=== PATIENT | female | born 1965 | race Caucasian/White ===

== ENCOUNTER 2020-07-03 09:25 | Outpatient (REF) | payer OTHER, SELFPAY ==
[2020-07-03 11:27] LABS: Hematocrit 42.6 % (37-47); Hemoglobin 13.8 g/dl (12.0-16.0); Mean Corpuscular HGB Conc 32.4 g/dl (31.0-35.0); Mean Corpuscular Hemoglobin 28.8 pg (27.0-33.0); Mean Corpuscular Volume 88.8 fL (80-98); Mean Platelet Volume 10.6 fL (9.4-12.3); Platelet Count 264 X10*3/uL (160-400); Red Cell Distribution Width 12.3 % (11.0-16.0); White Blood Count 6.2 X10*3/uL (4.8-10.8)
[2020-07-03 11:35] LABS: Glucose Urine UA NEG (NEG); Leukocyte Esterase Urine 1+ (NEG); Nitrite Urine NEG (NEG); Urine Blood 1+ (NEG); Urine Ketones NEG (NEG); Urine Protein NEG (NEG-TRACE)
[2020-07-03 11:46] LABS: Appearance Urine HAZY; Color Urine YELLOW
[2020-07-03 11:57] LABS: Alanine Aminotransferase 26 U/L (0-31); Albumin Level 4.1 g/dL (3.5-5.0); Alkaline Phosphatase 101 U/L (39-117); Anion Gap 13 (12-20); Aspartate Amino Transferase 25 U/L (5-31); Bilirubin Total 0.5 mg/dL (0.0-1.0); Blood Urea Nitrogen 12 mg/dL (9-16); Carbon Dioxide 29 mmol/L (22-29); Chloride 106 mmol/L (96-108); Cholesterol 269 mg/dL; Estimated Glomerular Filt Rate > 60; Glucose Fasting 85 mg/dL (60-99); HDL Cholesterol 62 mg/dL; Iron 122 mcg/dL (30-160); LDL Cholesterol Calculated 192 mg/dl; Percent Iron Saturation 36 % (15-50); Sodium 144 mmol/L (135-145); Total Iron Binding Capacity 337 mcg/dL (228-428); Triglycerides 75 mg/dL; Unsaturated Iron Binding 215 ug/dL
[2020-07-03 12:07] LABS: Amorphous Sediment Urine 2+ /LPF; Squamous Epithelial Cell Urine 1+ /LPF
[2020-07-03 12:21] LABS: TSH reflex Free T4 1.92 uIU/mL (0.32-4.0); Vitamin D 25-OH Total 26.4 ng/mL (>30)
[2020-07-03 12:28] LABS: Folate 16.5 ng/mL (> or = 4.0); Vitamin B12 339 pg/mL (200-900)
== END 2020-07-03 09:26 | disposition home or self-care (01) ==
LOC: HO.HMGCLDS 09:25
PROVIDERS: PCP Internal Medicine; Visit Provider Internal Medicine
DX: Z00.00 Encounter for general adult medical examination without abnormal findings (principal)
CPT/HCPCS: 36415; 80053; 80061; 81001; 82306; 82607; 82746; 83540; 84443; 85027

== ENCOUNTER 2020-07-04 14:19 | Outpatient (REF) | payer OTHER, SELFPAY | END 2020-07-04 14:20 | disposition home or self-care (01) | LOC: HO.LNP 14:19 | PROVIDERS: Visit Provider Internal Medicine | DX: R30.0 Dysuria (principal); M79.645 Pain in left finger(s); B35.1 Tinea unguium | CPT/HCPCS: 87086 ==

== ENCOUNTER 2020-08-10 16:40 | Outpatient (REF) | payer OTHER, SELFPAY ==
[2020-08-10 18:03] LABS: Glucose Urine UA NEG (NEG); Leukocyte Esterase Urine 2+ (NEG); Nitrite Urine NEG (NEG); PH 5.5 (5.0-8.0); Specific Gravity - Urine 1.025 (1.005-1.025); Urine Blood 2+ (NEG); Urine Ketones NEG (NEG); Urine Protein NEG (NEG-TRACE)
[2020-08-10 18:07] LABS: Appearance Urine CLEAR; Color Urine YELLOW
[2020-08-10 18:08] LABS: D Dimer < 200 NG/ML
[2020-08-10 18:15] LABS: Bacteria Urine 1+ /LPF
[2020-08-10 18:30] LABS: Erythrocyte Sedimentation Rate 14 MM/HR (0-20)
[2020-08-10 18:46] LABS: C Reactive Protein 0.14 mg/dL (< or = 0.50); Cholesterol 225 mg/dL; HDL Cholesterol 53 mg/dL; LDL Cholesterol Calculated 144 mg/dl; Triglycerides 144 mg/dL
[2020-08-10 18:54] LABS: Rheumatoid Factor 76.6 IU/mL (<15.0)
[2020-08-15 10:37] LABS: Anti Nuclear Antibody Screen POSITIVE (NEGATIVE); Anti Nuclear Antibody Titer 1:40 titer
== END 2020-08-10 16:41 | disposition home or self-care (01) ==
LOC: HO.LAB 16:40
PROVIDERS: PCP Internal Medicine; Visit Provider Internal Medicine
DX: M25.50 Pain in unspecified joint (principal); M79.606 Pain in leg, unspecified; E78.5 Hyperlipidemia, unspecified
CPT/HCPCS: 36415; 80061; 81001; 85379; 85652; 86038; 86039; 86140; 86431

== ENCOUNTER 2020-08-28 12:35 | Outpatient (REF) | payer OTHER, SELFPAY ==
--- NOTE | ~2020-08-28 | XR_ITS ---
EXAMINATION: RIGHT AND LEFT HANDS CLINICAL INFORMATION: Pain COMPARISON: None TECHNIQUE: 3 views of each hand FINDINGS: 3 views of the left hand demonstrate osteopenia. There appears to be a healing nondisplaced fracture involving the base of the first proximal phalanx. No significant soft tissue swelling is present. No radiopaque foreign body. 3 views of the right hand do not demonstrate any evidence of acute fracture or dislocation. No significant soft tissue swelling is appreciated. There is mild spurring about the first carpal metacarpal joint. XR/XR hand LT min 3V IMPRESSION: Healing fracture base of the first proximal phalanx of the left hand. No significant right hand abnormality appreciated. Osteopenia..
--- NOTE | ~2020-08-28 | XR_ITS ---
EXAMINATION: RIGHT AND LEFT HANDS CLINICAL INFORMATION: Pain COMPARISON: None TECHNIQUE: 3 views of each hand FINDINGS: 3 views of the left hand demonstrate osteopenia. There appears to be a healing nondisplaced fracture involving the base of the first proximal phalanx. No significant soft tissue swelling is present. No radiopaque foreign body. 3 views of the right hand do not demonstrate any evidence of acute fracture or dislocation. No significant soft tissue swelling is appreciated. There is mild spurring about the first carpal metacarpal joint. XR/XR hand RT min 3V IMPRESSION: Healing fracture base of the first proximal phalanx of the left hand. No significant right hand abnormality appreciated. Osteopenia..
== END 2020-08-28 12:36 | disposition home or self-care (01) ==
LOC: HO.HOSX 12:35
PROVIDERS: PCP Internal Medicine; Visit Provider Orthopaedic Surgery
DX: M79.641 Pain in right hand (principal); M79.642 Pain in left hand
CPT/HCPCS: 73130; 99202

== ENCOUNTER 2020-10-24 12:30 | Outpatient (REF) | payer OTHER, SELFPAY ==
[2020-10-24 13:45] LABS: MANUAL DIFF FLAG NO
[2020-10-24 13:48] LABS: Basophils Percent Auto 0.5 % (0-2); Eosinophils Absolute Auto 0.1 X10*3/uL (0.0-0.4); Eosinophils Percent Auto 1.3 % (0-4); Hematocrit 40.7 % (37-47); Hemoglobin 13.6 g/dl (12.0-16.0); Imm Gran Abs Auto 0.02 X10*3/uL (0.00-0.03); Imm Gran Pct Auto 0.2 % (0.0-0.4); Lymphocytes Percent Auto 24.5 % (20-40); Mean Corpuscular HGB Conc 33.4 g/dl (31.0-35.0); Mean Corpuscular Hemoglobin 28.5 pg (27.0-33.0); Mean Corpuscular Volume 85.1 fL (80-98); Mean Platelet Volume 11.2 fL (9.4-12.3); Monocytes Absolute Auto 0.5 X10*3/uL (0.1-1.2); Monocytes Percent Auto 5.8 % (2-11); Neutrophils Absolute Auto 5.6 X10*3/uL (2.0-8.3); Neutrophils Percent Auto 67.7 % (45-73); Platelet Count 236 X10*3/uL (160-400); Red Blood Count 4.78 X10*6/uL (4.20-5.50); Red Cell Distribution Width 12.3 % (11.0-16.0); White Blood Count 8.3 X10*3/uL (4.8-10.8)
[2020-10-24 14:34] LABS: Erythrocyte Sedimentation Rate 17 MM/HR (0-20)
[2020-10-24 14:37] LABS: Alanine Aminotransferase 22 U/L (0-31); Albumin Level 4.1 g/dL (3.5-5.0); Alkaline Phosphatase 114 U/L (39-117); Anion Gap 13 (12-20); Aspartate Amino Transferase 23 U/L (5-31); Bilirubin Total 0.5 mg/dL (0.0-1.0); Blood Urea Nitrogen 12 mg/dL (9-16); C Reactive Protein 0.24 mg/dL (< or = 0.50); Calcium 9.5 mg/dL (8.4-10.2); Carbon Dioxide 28 mmol/L (22-29); Chloride 106 mmol/L (96-108); Estimated Glomerular Filt Rate > 60; Glucose Random 97 mg/dL (60-115); Potassium 4.3 mmol/L (3.3-5.1); Sodium 143 mmol/L (135-145); Total Protein 7.2 g/dL (6.5-8.0)
[2020-10-24 15:26] LABS: Glucose Urine UA NEG (NEG); Leukocyte Esterase Urine 3+ (NEG); Nitrite Urine NEG (NEG); Urine Blood TRACE (NEG); Urine Ketones NEG (NEG); Urine Protein NEG (NEG-TRACE)
[2020-10-24 15:27] LABS: Appearance Urine CLEAR; Color Urine YELLOW
[2020-10-24 15:40] LABS: Bacteria Urine 1+ /LPF; RBC Urine 0-2 /HPF (0)
[2020-10-25 04:32] LABS: HBsAGNum1 0.21 S/CO (0.00-0.99); Hepatitis B Surface Antigen Negative (Negative)
[2020-10-25 04:49] LABS: HBS Num1 0.38 mIU/mL (0-7.99); HBc Num1 0.06 S/CO (0.00-0.79); Hepatitis B Core Antibody Nonreactive (Nonreactive); ~HepC Num1 0.07 S/CO (0.00-0.79); ~Hepatitis B Surface Antibody NONREACTIVE (Nonreactive); ~Hepatitis C Antibody Nonreactive (Nonreactive)
[2020-10-25 12:37] LABS: Anti DNA DS Antibody <1 IU/mL; Antibody to SS-A Antigen <1.0 NEG AI (<1.0 NEG); Antibody to SS-B Antigen <1.0 NEG AI (<1.0 NEG); SM/Ribonucleoprotein Ab <1.0 NEG AI (<1.0 NEG); Scleroderma 70 Antibody <1.0 NEG AI (<1.0 NEG); Smith Protein <1.0 NEG AI (<1.0 NEG)
[2020-10-25 13:46] LABS: Beta-2 Microglobulin, Serum 1.87 mg/L (< OR = 2.51)
[2020-10-25 14:37] LABS: PTT (LAC) Screen 26 sec (< OR = 40)
[2020-10-25 15:07] LABS: Complement C3 91 mg/dL (83-193)
[2020-10-26 04:18] LABS: Hepatitis A Antibody IgM 0.18 Index (0-0.79); ~Hepatitis A Antibody IgM Nonreactive (Nonreactive)
[2020-10-26 15:41] LABS: Cardiolipin IgG Ab <14 GPL; Cardiolipin IgM Ab <12 MPL
[2020-10-26 17:21] LABS: Cyclic Citrullinated Peptide >250 UNITS
[2020-10-27 16:16] LABS: TS Negative Control Passed; TS Panel A 0; TS Panel B 0; TS Positive Control Passed; TSpotTB Negative (SeeBelow)
== END 2020-10-24 12:31 | disposition home or self-care (01) ==
LOC: HO.LAB 12:30
PROVIDERS: PCP Internal Medicine; Visit Provider Student in an Organized Health Care Education/Training Program
DX: R76.8 Other specified abnormal immunological findings in serum (principal); M06.9 Rheumatoid arthritis, unspecified; M25.50 Pain in unspecified joint
CPT/HCPCS: 36415; 80053; 81001; 82232; 85025; 85597; 85613; 85652; 85730; 86140; 86147; 86160; 86200; 86225; 86235; 86481; 86704; 86706; 86709; 86803; 87340; 99202

== ENCOUNTER 2020-11-05 09:10 | Outpatient (REF) | payer OTHER, SELFPAY ==
--- NOTE | ~2020-11-05 | XR_ITS ---
EXAMINATION: XR FOOT, RIGHT XR FOOT, LEFT CLINICAL INFORMATION: R76.8 - Other specified abnormal immunological findings COMPARISON: None TECHNIQUE: Each foot is imaged in 3 views. There are a total of 6 views. FINDINGS: Right: There is no fracture or dislocation or destructive process. Bony mineralization within normal. There is small bunion medial head first MTP with borderline hallux valgus. There is no focal joint narrowing or erosive changes. There are posterior and larger plantar calcaneal spurs. The retrocalcaneal recess is preserved. Left: No fracture, dislocation, or destructive process. Bony mineralization within normal. Borderline bunion medial head first MTP and borderline hallux valgus. No focal joint narrowing or erosive change. There are posterior and plantar calcaneal spurs. The retrocalcaneal recess is preserved. XR/XR foot LT 2V IMPRESSION: Right: -Mild first MTP bunion with borderline hallux valgus. -Posterior and plantar calcaneal spurs. -No focal joint narrowing or erosive change. Left: -Borderline first MTP bunion with borderline hallux valgus. -Posterior and plantar calcaneal spurs. -No focal joint narrowing or erosive change.
--- NOTE | ~2020-11-05 | XR_ITS ---
EXAMINATION: XR FOOT, RIGHT XR FOOT, LEFT CLINICAL INFORMATION: R76.8 - Other specified abnormal immunological findings COMPARISON: None TECHNIQUE: Each foot is imaged in 3 views. There are a total of 6 views. FINDINGS: Right: There is no fracture or dislocation or destructive process. Bony mineralization within normal. There is small bunion medial head first MTP with borderline hallux valgus. There is no focal joint narrowing or erosive changes. There are posterior and larger plantar calcaneal spurs. The retrocalcaneal recess is preserved. Left: No fracture, dislocation, or destructive process. Bony mineralization within normal. Borderline bunion medial head first MTP and borderline hallux valgus. No focal joint narrowing or erosive change. There are posterior and plantar calcaneal spurs. The retrocalcaneal recess is preserved. XR/XR foot RT 2V IMPRESSION: Right: -Mild first MTP bunion with borderline hallux valgus. -Posterior and plantar calcaneal spurs. -No focal joint narrowing or erosive change. Left: -Borderline first MTP bunion with borderline hallux valgus. -Posterior and plantar calcaneal spurs. -No focal joint narrowing or erosive change.
== END 2020-11-05 09:11 | disposition home or self-care (01) ==
LOC: HO.XRAY 09:10
PROVIDERS: Absent Provider Student in an Organized Health Care Education/Training Program; PCP Internal Medicine; Referring Provider Internal Medicine; Visit Provider Physician Assistant
DX: Z01.818 Encounter for other preprocedural examination (principal); R76.8 Other specified abnormal immunological findings in serum
CPT/HCPCS: 73620

== ENCOUNTER → 2020-11-21 13:29 | Outpatient (BNVA) | payer OTHER, SELFPAY | PROVIDERS: PCP Internal Medicine; Visit Provider Student in an Organized Health Care Education/Training Program | DX: M06.9 Rheumatoid arthritis, unspecified (principal); R76.8 Other specified abnormal immunological findings in serum; M75.81 Other shoulder lesions, right shoulder | CPT/HCPCS: 99212 ==

== ENCOUNTER 2021-01-04 10:00 | Outpatient (RCR) | payer OTHER, SELFPAY | END 2021-04-05 14:58 | disposition home or self-care (01) | LOC: HO.PTWFD 10:00 | PROVIDERS: PCP Internal Medicine; Visit Provider Student in an Organized Health Care Education/Training Program | DX: M75.81 Other shoulder lesions, right shoulder (principal) | CPT/HCPCS: 97110; 97162; 97530; 97535 ==

== ENCOUNTER 2021-01-10 14:06 | Outpatient (REF) | payer OTHER, SELFPAY ==
--- NOTE | ~2021-01-10 | MM_ITS ---
EXAMINATION: MM DIAGNOSTIC DIGITAL BREAST TOMOSYNTHESIS, BILATERAL US DIAGNOSTIC ULTRASOUND BREAST, RIGHT CLINICAL INFORMATION: Palpable fullness at clinical exam right 9:00 and right 11:00 position. Patient notes no significant changes in the breast from past. Due for yearly. The lifetime risk of breast cancer based on the Tyrer-Cuzick Model is 14%. COMPARISON: Prior mammography: 05/01/2011 TECHNIQUE: Digital breast tomosynthesis is performed in both the craniocaudal and mediolateral oblique views along with computer-aided detection (CAD). Synthesized 2D images are generated from the tomosynthesis. Additional exaggerated right CC view is provided. Ultrasound right breast is targeted to the areas of clinical concern 8:00 through 12:00 position. Grayscale imaging and color Doppler are performed without and with with harmonics. FINDINGS: The breasts are heterogeneously dense, which may obscure small masses (ACR BI-RADS breast composition Category c). Parenchymal pattern is similar to remote prior exam. There is no mass or architectural abnormality. No abnormal calcifications. The axilla and skin contours are unremarkable. No skin thickening or coarsening of the Miguel's ligaments. Ultrasound right breast demonstrates no cystic or solid mass or architectural abnormality. There is no focal duct ectasia. No skin thickening or edema tracking in soft tissue planes. Results are discussed with the patient at time of visit. MM/MM tomosynthesis diagnostic BI IMPRESSION: No mammographic evidence of malignancy. Unremarkable targeted right breast ultrasound. ASSESSMENT: BI-RADS 1: Negative RECOMMENDATION: 1. Patient should be managed based on the clinical impression. If clinically indicated, further evaluation may be considered with surgical consult. Decision to proceed with biopsy should be based on clinical grounds and degree of clinical concern. 2. Otherwise, routine annual screening mammography. This patient's information was entered into a reminder system with a target due date for their next mammogram.
== END 2021-01-10 14:07 | disposition home or self-care (01) ==
LOC: HO.MAMMO 14:06
PROVIDERS: Visit Provider Internal Medicine
DX: N63.11 Unspecified lump in the right breast, upper outer quadrant (principal); N63.15 Unspecified lump in the right breast, overlapping quadrants
CPT/HCPCS: 76642; 77062; 77066

== ENCOUNTER 2021-01-30 11:32 | Outpatient (REF) | payer OTHER, SELFPAY ==
[2021-01-30 13:13] LABS: COVID-19 Test Negative (Negative)
== END 2021-01-30 11:33 | disposition home or self-care (01) ==
LOC: HO.LAB 11:32
PROVIDERS: Visit Provider Internal Medicine
DX: Z20.822 Contact with and (suspected) exposure to COVID-19 (principal)
CPT/HCPCS: 36415; 87635; C9803; U0003; U0005

== ENCOUNTER 2021-02-04 10:08 | Outpatient (REF) | payer OTHER, SELFPAY ==
[2021-02-04 11:51] LABS: MANUAL DIFF FLAG NO
[2021-02-04 11:59] LABS: Basophils Percent Auto 0.5 % (0-2); Eosinophils Absolute Auto 0.1 X10*3/uL (0.0-0.4); Eosinophils Percent Auto 2.1 % (0-4); Hematocrit 37.5 % (37-47); Hemoglobin 12.4 g/dl (12.0-16.0); Imm Gran Abs Auto 0.01 X10*3/uL (0.00-0.03); Imm Gran Pct Auto 0.2 % (0.0-0.4); Lymphocytes Absolute Auto 1.8 X10*3/uL (1.2-4.9); Lymphocytes Percent Auto 31.3 % (20-40); Mean Corpuscular HGB Conc 33.1 g/dl (31.0-35.0); Mean Corpuscular Volume 87.6 fL (80-98); Mean Platelet Volume 10.6 fL (9.4-12.3); Monocytes Absolute Auto 0.3 X10*3/uL (0.1-1.2); Monocytes Percent Auto 5.2 % (2-11); Neutrophils Absolute Auto 3.5 X10*3/uL (2.0-8.3); Neutrophils Percent Auto 60.7 % (45-73); Platelet Count 252 X10*3/uL (160-400); Red Blood Count 4.28 X10*6/uL (4.20-5.50); Red Cell Distribution Width 13.1 % (11.0-16.0); White Blood Count 5.8 X10*3/uL (4.8-10.8)
[2021-02-04 12:19] LABS: Appearance Urine CLEAR; Color Urine YELLOW; Glucose Urine UA NEG (NEG); Leukocyte Esterase Urine NEG (NEG); Nitrite Urine NEG (NEG); Urine Blood TRACE (NEG); Urine Ketones NEG (NEG); Urine Protein NEG (NEG-TRACE)
[2021-02-04 12:21] LABS: Alanine Aminotransferase 18 U/L (0-31); Alkaline Phosphatase 99 U/L (39-117); Anion Gap 10 (12-20); Aspartate Amino Transferase 21 U/L (5-31); Bilirubin Total 0.6 mg/dL (0.0-1.0); Blood Urea Nitrogen 9 mg/dL (9-16); C Reactive Protein 0.13 mg/dL (< or = 0.50); Calcium 9.5 mg/dL (8.4-10.2); Carbon Dioxide 28 mmol/L (22-29); Chloride 108 mmol/L (96-108); Cholesterol 212 mg/dL; Estimated Glomerular Filt Rate > 60; Glucose Random 89 mg/dL (60-115); HDL Cholesterol 51 mg/dL; LDL Cholesterol Calculated 147 mg/dl; Potassium 4.1 mmol/L (3.3-5.1); Sodium 142 mmol/L (135-145); Total Protein 6.6 g/dL (6.5-8.0); Triglycerides 71 mg/dL
[2021-02-04 12:32] LABS: Squamous Epithelial Cell Urine TRACE /LPF; WBC Urine 0-2 /HPF (0-4)
[2021-02-04 12:34] LABS: Vitamin D 25-OH Total 30.1 ng/mL (>30)
[2021-02-04 12:47] LABS: Folate 17.1 ng/mL (> or = 4.0); Vitamin B12 350 pg/mL (200-900)
[2021-02-04 12:52] LABS: Erythrocyte Sedimentation Rate 17 MM/HR (0-20)
== END 2021-02-04 10:09 | disposition home or self-care (01) ==
LOC: HO.LAB 10:08
PROVIDERS: Student in an Organized Health Care Education/Training Program; PCP Internal Medicine; Visit Provider Nurse Practitioner Family
DX: Z00.00 Encounter for general adult medical examination without abnormal findings (principal); M06.9 Rheumatoid arthritis, unspecified; R76.8 Other specified abnormal immunological findings in serum; E78.5 Hyperlipidemia, unspecified
CPT/HCPCS: 36415; 80053; 80061; 81001; 82306; 82607; 82746; 85025; 85652; 86140; 99212

== ENCOUNTER 2021-02-05 11:23 | Day surgery (SDC) | payer OTHER, SELFPAY ==
[2020-12-05 11:56] VITALS: BMI 20.5
--- NOTE | 2020-12-10 08:57 | HO.ANESPROP2 ---
HPI - Anesthesia Eval Consult details Narrative: 55yo F for Colonoscopy PMFSH Active Problems Active Problems: All Active Problems (Updated 11/21/20 @ 13:46 by Hemal Lee MD) Right rotator cuff tendinitis (Acute) Encounter for screening colonoscopy (Acute) EVERARDO positive (Acute) Mammogram declined (Acute) Rheumatoid arthritis (Acute) Joint pain in both hands (Acute) Elevated rheumatoid factor (Acute) Leg pain (Acute) Arthralgia (Acute) Hyperlipemia (Acute) Dysuria (Acute) Onychomycosis (Acute) Pain of left thumb (Acute) Anxiety (Acute) Annual physical exam (Acute) Past Medical History Medical History (Updated 12/10/20 @ 08:59 by Mar Reilly) Annual physical exam Anxiety Arthralgia Dysuria Elevated rheumatoid factor Factor V deficiency, congenital Hyperlipemia Leg pain Mammogram declined Onychomycosis Pain of left thumb Rheumatoid arthritis Family History Family History Father Kidney disease Heart disease Mother Heart disease CVD (cardiovascular disease) Paternal Aunt Breast cancer Surgical History Surgical History History of section History of unilateral fallopian tube excision History of uterine fibroid Social History Social History Alcohol intake: never Patient Tobacco Use Status: Never used Tobacco e-Cigarette/Vaping Use: Never Used Current occupational status: employed 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 Meds Allergies Allergy/AdvReac Type Severity Reaction Status Date / Time hazelnut Allergy Intermediate tongue Verified 12/05/20 11:54 swelling cat dander Allergy Mild sneezing Verified 12/05/20 11:54 Home Medications Medication Instructions Recorded Confirmed Last Taken Type ashwagandha root extract 300 mg mg PO 11/05/20 11/05/20 Unknown History capsule cholecalciferol (vitamin D3) 10 10 mcg PO DAILY 11/05/20 11/05/20 Unknown History mcg (400 unit) capsule feverfew 250 mg capsule mg PO 11/05/20 11/05/20 Unknown History wellington (Zingiber officinalis) 250 250 mg PO DAILY 11/05/20 11/05/20 Unknown History mg capsule nutritional supplement-fiber oral ea PO PRN 11/05/20 11/05/20 Unknown History liquid omega-3 417 mg-dha 120 mg-epa-276 cap PO 11/05/20 11/05/20 Unknown History mg-fish oil 600 mg-tumeric capsule resveratrol-quercetin 100 mg-100 tab PO 11/05/20 11/05/20 Unknown History mg tablet Exam Exam Date and Time: December 10, 2020 0857 Height,Weight and Vital Signs: Height 5 ft 7 in Weight 59.591 kg Pertinent Lab Results Pertinent Lab Results: Laboratory Tests 10/24/20 10/24/20 13:15 13:16 WBC 8.3 Hgb 13.6 Hct 40.7 Plt Count 236 Sodium 143 Potassium 4.3 Chloride 106 Carbon Dioxide 28 BUN 12 Creatinine 0.76 Assessment and Plan Assessment Anesthesia Assessment: Chart Reviewed
[2021-02-01 12:37] VITALS: BMI 20.3
--- NOTE | 2021-02-04 09:27 | P.CONAN_ITS ---
Documented by User: Mar Reilly NP 02/04/21 09:28 HPI - Anesthesia Eval Consult details Narrative: 55yo F for Colonoscopy PMFSH Active Problems Active Problems: All Active Problems (Updated 12/20/20 @ 14:13 by Lauar Cortez MD) Joint pain in both hands (Acute) EVERARDO positive (Acute) Encounter for screening colonoscopy (Acute) Right rotator cuff tendinitis (Acute) Vitamin D deficiency (Acute) Breast lump in female (Acute) Mammogram declined (Acute) Rheumatoid arthritis (Acute) Elevated rheumatoid factor (Acute) Leg pain (Acute) Arthralgia (Acute) Hyperlipemia (Acute) Dysuria (Acute) Onychomycosis (Acute) Pain of left thumb (Acute) Anxiety (Acute) Annual physical exam (Acute) Past Medical History Medical History Annual physical exam Anxiety Arthralgia Breast lump in female Dysuria Elevated rheumatoid factor Factor V deficiency, congenital Hyperlipemia Leg pain Mammogram declined Onychomycosis Pain of left thumb Rheumatoid arthritis Takes dietary supplements Vitamin D deficiency Family History Family History Father Kidney disease Heart disease Mother Heart disease CVD (cardiovascular disease) Paternal Aunt Breast cancer Surgical History Surgical History History of section History of unilateral fallopian tube excision History of uterine fibroid Social History Social History Patient Tobacco Use Status: Never used Tobacco e-Cigarette/Vaping Use: Never Used Use of substances other than those prescribed or required for medical reasons: No Are you DNR?: No Advance Directives: No Advance Directives Information Provided: No Advance Directives on File: No Patient : No FDLMP: 2017 Current occupational status: employed 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 Meds Allergies Allergy/AdvReac Type Severity Reaction Status Date / Time hazelnut Allergy Intermediate tongue Verified 02/04/21 10:49 swelling cat dander Allergy Mild sneezing Verified 02/04/21 10:49 Home Medications Medication Instructions Recorded Confirmed Last Taken Type cholecalciferol (vitamin D3) 10 10 mcg PO DAILY 11/05/20 12/20/20 Unknown History mcg (400 unit) capsule feverfew 250 mg capsule mg PO 11/05/20 12/20/20 Unknown History wellington (Zingiber officinalis) 250 250 mg PO DAILY 11/05/20 12/20/20 Unknown History mg capsule nutritional supplement-fiber oral ea PO PRN 11/05/20 12/20/20 Unknown History liquid omega-3 417 mg-dha 120 mg-epa-276 cap PO 11/05/20 12/20/20 Unknown History mg-fish oil 600 mg-tumeric capsule Exam Exam Date and Time: February 04, 2021 0927 Height,Weight and Vital Signs: Height 5 ft 7 in Weight 58.967 kg Pertinent Lab Results Pertinent Lab Results: Laboratory Tests 10/24/20 10/24/20 13:15 13:16 WBC 8.3 Hgb 13.6 Hct 40.7 Plt Count 236 Sodium 143 Potassium 4.3 Chloride 106 Carbon Dioxide 28 BUN 12 Creatinine 0.76 Assessment and Plan Assessment Anesthesia Assessment: Chart Reviewed Documented by User: Keiko Flowers MD 02/05/21 12:55 PMFSH Past Medical History Medical History Annual physical exam Anxiety Arthralgia Breast lump in female Dysuria Elevated rheumatoid factor Factor V deficiency, congenital Hyperlipemia Leg pain Mammogram declined Onychomycosis Pain of left thumb Rheumatoid arthritis Takes dietary supplements Vitamin D deficiency Family History Family History Father Kidney disease Heart disease Mother Heart disease CVD (cardiovascular disease) Paternal Aunt Breast cancer Surgical History Surgical History History of section History of unilateral fallopian tube excision History of uterine fibroid History of Problems with Anesthesia: No Social History Social History Patient Tobacco Use Status: Never used Tobacco e-Cigarette/Vaping Use: Never Used Use of substances other than those prescribed or required for medical reasons: No Are you DNR?: No Advance Directives: No Advance Directives Information Provided: No Advance Directives on File: No Patient : No FDLMP: 2017 Current occupational status: employed 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 Meds Allergies Allergy/AdvReac Type Severity Reaction Status Date / Time hazelnut Allergy Intermediate tongue Verified 02/04/21 10:49 swelling cat dander Allergy Mild sneezing Verified 02/04/21 10:49 Home Medications Medication Instructions Recorded Confirmed Last Taken Type cholecalciferol (vitamin D3) 10 10 mcg PO DAILY 11/05/20 12/20/20 Unknown History mcg (400 unit) capsule feverfew 250 mg capsule mg PO 11/05/20 12/20/20 Unknown History wellington (Zingiber officinalis) 250 250 mg PO DAILY 11/05/20 12/20/20 Unknown History mg capsule nutritional supplement-fiber oral ea PO PRN 11/05/20 12/20/20 Unknown History liquid omega-3 417 mg-dha 120 mg-epa-276 cap PO 11/05/20 12/20/20 Unknown History mg-fish oil 600 mg-tumeric capsule Exam Airway Mallampati Class: II TM Dist: >3cm Neck ROM: Full Heart: RRR Lungs: CTA Assessment and Plan Final Anesthetic Review History of Problems with Anesthesia: No NPO: Yes ASA Class: II Final Preanesthetic Review: Meds/Allgs Chart Reviewed, Consent Obtained/Reviewed and Anes Risks/Benef Reviewed Patient Risk: Low Procedure Risk: Low Anesthetic Plan Anesthetic Plan: MAC: Disposition: Standard PACU
[2021-02-05 11:55] VITALS: BP 124/59; PULSE 60; RESP 16; TEMP 36.4; O2SAT 100
[2021-02-05] MEDS: Lactated Ringers 1,000 ML 100 ML IVCONT (12:27)
--- NOTE | 2021-02-05 12:48 | MHC.SHP ---
Pre-Procedural Eval Section A Date of Service: 02/05/21 The patient is an INPATIENT: No The History & Physical has been completed within 30 days and I have reviewed it.: No Section B Chief Complaint: Screening Details of Present Illness: Colon cancer screening Relevant Family History (Specify if Yes): No Relevant Social History: None Present Medications: see Short Stay Collaborative assessment Medical History: Significant History (Anxiety Arthralgia Dysuria Elevated rheumatoid factor Factor V deficiency, congenital Hyperlipemia Leg pain Mammogram declined Onychomycosis Pain of left thumb Rheumatoid arthritis) History of Previous Operations: Relevant previous surgery/procedure and date(s) (History of section History of unilateral fallopian tube excision History of uterine fibroid) Allergies: Allergies Allergy/AdvReac Type Severity Reaction Status Date / Time hazelnut Allergy Intermediate tongue Verified 02/04/21 10:49 swelling cat dander Allergy Mild sneezing Verified 02/04/21 10:49 Review of Systems Sugical H&P ROS: Negative: Constitution, Cardiovascular, Respiratory and Gastrointestinal Exam Surgical H&P Exam: Normal: Heart, Normal: Lungs, Normal: Extremities and Normal: Abdomen Plan Diagnosis/Plan: Unchanged I have reviewed the history and physical and performed a pertinent physical examination on my patient. No changes have occurred unless specified.
--- NOTE | 2021-02-05 13:00 | P.OP_ITS ---
Operative Note Operative Note Date of Service: 02/05/21 Narrative: Pre-op diagnosis:?Colon cancer screening Post-op diagnosis:?other (Colon polyp, hemorrhoids) Procedure:? COLONOSCOPY TILL CECUM WITH SNARE POLYPECTOMY AND SUBMUCOSAL INJECTION Consent: Indications for the procedure and potential complications of bleeding, perforation, reaction to medications and missed diagnosis were discussed with the patient and informed consent was obtained. Instrument: Olympus PCF H 190 L variable stiffness pediatric colonoscope Monitoring: Vital signs and clinical assessment, intermittent blood pressure monitoring, continuous EKG monitoring, Pulse oximetry and Carbon Dioxide monitoring were done throughout the procedure. Colon withdrawl time was 32 minutes. Procedure: The patient was placed in the left lateral decubitis position and pre-procedure medications were administered. After a digital rectal examination of the ano-rectum, the video colonoscope was inserted into the rectum and advanced through the colon to the cecum. The colonoscope was slowly withdrawn in a retrograde panoramic fashion and the colon mucosa was carefully examined including a retroflexed view of the rectum. Findings and interventions are described below. Procedure Difficulty: Without difficulty Findings: Terminal Ileum: Not evaluated Cecum:? Normal Ascending Colon:? A 2.5 x 1 cms flat polyp in the distal AC at 60 cms.? Polyp was raised with 7 cc of Orise solution (submucosal injection) and removed with a hot snare (stiff snare was used).? Polypectomy site was marked with xavier ink. Transverse Colon:? Normal Descending Colon:? Normal Sigmoid Colon:? Normal Rectum:? Normal Ano-rectum:? Moderate internal hemorrhoids Colon preparation:? Good? Impression and Post Procedure Diagnosis: Colonoscopy Findings: One medium sized polyp removed Moderate hemorrhoids on retroflexed exam. Plan: Await pathology results Patient has an appointment on 02/20/21 in the GI Clinic with? FAISAL Lyons. Repeat Colonoscopy interval based on path results - in 1-2 years if polyps is adenomatous (to check polypectomy site in the AC) and 10 years if polyps are hyperplastic. Above findings were reviewed with the patient and colon polyps and handout was given in the discharge area Surgeon:?Johan Link MD Anesthesia:?MAC (Shelly Campbell CRNA) Was an Iuss Acoustic Analyst used for this Procedure?:?Yes Iuss Acoustic Analyst:?Tiffanie Holder Estimated blood loss (mL):?0 Pathology:?other (A. ascending colon polyp at 60 cm with Orise) Condition:?stable Disposition:?PACU
[2021-02-05 13:53] VITALS: BP 100/55; PULSE 60; RESP 17; O2SAT 100
[2021-02-05 14:08] VITALS: BP 112/64; PULSE 62; RESP 17; TEMP 36.6; O2SAT 99
[2021-02-05 14:22] VITALS: BP 132/76; PULSE 17; TEMP 36.6; O2SAT 99
== END 2021-02-05 14:53 | disposition home or self-care (01) ==
PROVIDERS: PCP Internal Medicine; Visit Provider Internal Medicine Gastroenterology
PROC: 0DJD8ZZ Inspection of Lower Intestinal Tract, Via Natural or Artificial Opening Endoscopic (ICD-10-PCS; CPT 45378; principal; 2021-02-05 12:30)
DX: Z12.11 Encounter for screening for malignant neoplasm of colon (principal); D12.2 Benign neoplasm of ascending colon; K64.8 Other hemorrhoids; E78.5 Hyperlipidemia, unspecified; M05.9 Rheumatoid arthritis with rheumatoid factor, unspecified; D68.4 Acquired coagulation factor deficiency; E55.9 Vitamin D deficiency, unspecified; F41.9 Anxiety disorder, unspecified; Z79.1 Long term (current) use of non-steroidal anti-inflammatories (NSAID)
CPT/HCPCS: 45385; 45381; 88305; J2250

== ENCOUNTER 2021-04-04 10:49 | Outpatient (REF) | payer OTHER, SELFPAY ==
[2021-04-04 11:26] LABS: COVID-19 Test Negative (Negative)
== END 2021-04-04 10:50 | disposition home or self-care (01) ==
LOC: HO.LAB 10:49
PROVIDERS: PCP Internal Medicine; Visit Provider Internal Medicine
DX: Z20.822 Contact with and (suspected) exposure to COVID-19 (principal)
CPT/HCPCS: 36415; 87635; C9803

== ENCOUNTER 2021-05-04 08:56 | Outpatient (REF) | payer OTHER, SELFPAY ==
[2021-05-04 09:13] LABS: MANUAL DIFF FLAG NO
[2021-05-04 10:14] LABS: Basophils Percent Auto 0.3 % (0-2); Eosinophils Absolute Auto 0.1 X10*3/uL (0.0-0.4); Eosinophils Percent Auto 1.8 % (0-4); Hemoglobin 13.5 g/dl (12.0-16.0); Imm Gran Abs Auto 0.01 X10*3/uL (0.00-0.03); Imm Gran Pct Auto 0.1 % (0.0-0.4); Lymphocytes Absolute Auto 1.9 X10*3/uL (1.2-4.9); Lymphocytes Percent Auto 28.4 % (20-40); Mean Corpuscular HGB Conc 32.9 g/dl (31.0-35.0); Mean Corpuscular Hemoglobin 28.8 pg (27.0-33.0); Mean Corpuscular Volume 87.6 fL (80.0-98.0); Mean Platelet Volume 10.8 fL (9.4-12.3); Monocytes Absolute Auto 0.5 X10*3/uL (0.1-1.2); Monocytes Percent Auto 6.8 % (2-11); Neutrophils Absolute Auto 4.3 x10*3/uL (2.0-8.3); Neutrophils Percent Auto 62.6 % (45-73); Platelet Count 263 X10*3/uL (160-400); Red Blood Count 4.68 X10*6/uL (4.20-5.50); Red Cell Distribution Width 12.7 % (11.0-16.0); White Blood Count 6.8 X10*3/uL (4.8-10.8)
[2021-05-04 11:03] LABS: Alanine Aminotransferase 21 U/L (0-31); Alkaline Phosphatase 102 U/L (39-117); Anion Gap 13 (12-20); Aspartate Amino Transferase 22 U/L (5-31); Bilirubin Total 0.5 mg/dL (0.0-1.0); Blood Urea Nitrogen 11 mg/dL (9-16); C Reactive Protein 0.11 mg/dL (< or = 0.50); Calcium 9.4 mg/dL (8.4-10.2); Carbon Dioxide 26 mmol/L (22-29); Chloride 107 mmol/L (96-108); Estimated Glomerular Filt Rate > 60; Glucose Random 80 mg/dL (60-115); Potassium 4.2 mmol/L (3.3-5.1); Sodium 142 mmol/L (135-145); Total Protein 6.9 g/dL (6.5-8.0)
[2021-05-04 11:29] LABS: Erythrocyte Sedimentation Rate 27 MM/HR (0-20)
== END 2021-05-04 08:57 | disposition home or self-care (01) ==
LOC: HO.LAB 08:56
PROVIDERS: PCP Internal Medicine; Visit Provider Nurse Practitioner Family
DX: M06.9 Rheumatoid arthritis, unspecified (principal)
CPT/HCPCS: 36415; 80053; 85025; 85652; 86140

== ENCOUNTER 2021-05-06 10:45 | Outpatient (REF) | payer OTHER, SELFPAY ==
[2021-05-06 12:40] LABS: Appearance Urine CLEAR; Color Urine YELLOW; Glucose Urine UA NEG (NEG); Leukocyte Esterase Urine NEG (NEG); Nitrite Urine NEG (NEG); PH 6.5 (5.0-8.0); Specific Gravity - Urine <= 1.005 (1.005-1.025); UACC Culture Trigger NO; Urine Blood 1+ (NEG); Urine Ketones NEG (NEG); Urine Protein NEG (NEG-TRACE)
[2021-05-06 13:15] LABS: WBC Urine 0 /HPF (0-4)
== END 2021-05-06 10:46 | disposition home or self-care (01) ==
LOC: HO.LAB 10:45
PROVIDERS: PCP Internal Medicine; Visit Provider Nurse Practitioner Family
DX: M06.9 Rheumatoid arthritis, unspecified (principal); Z79.899 Other long term (current) drug therapy
CPT/HCPCS: 81001; 99212

== ENCOUNTER 2021-06-05 08:44 | Outpatient (REF) | payer OTHER, SELFPAY ==
[2021-06-05 09:16] LABS: MANUAL DIFF FLAG NO
[2021-06-05 09:19] LABS: Basophils Percent Auto 0.6 % (0-2); Eosinophils Absolute Auto 0.1 X10*3/uL (0.0-0.4); Eosinophils Percent Auto 1.4 % (0-4); Hematocrit 38.7 % (37.0-47.0); Hemoglobin 13.1 g/dl (12.0-16.0); Imm Gran Abs Auto 0.02 X10*3/uL (0.00-0.03); Imm Gran Pct Auto 0.3 % (0.0-0.4); Lymphocytes Absolute Auto 1.7 X10*3/uL (1.2-4.9); Lymphocytes Percent Auto 24.8 % (20-40); Mean Corpuscular HGB Conc 33.9 g/dl (31.0-35.0); Mean Corpuscular Hemoglobin 28.9 pg (27.0-33.0); Mean Corpuscular Volume 85.2 fL (80.0-98.0); Mean Platelet Volume 10.4 fL (9.4-12.3); Monocytes Absolute Auto 0.4 X10*3/uL (0.1-1.2); Monocytes Percent Auto 6.5 % (2-11); Neutrophils Absolute Auto 4.4 x10*3/uL (2.0-8.3); Neutrophils Percent Auto 66.4 % (45-73); Platelet Count 264 X10*3/uL (160-400); Red Blood Count 4.54 X10*6/uL (4.20-5.50); Red Cell Distribution Width 11.7 % (11.0-16.0); White Blood Count 6.6 X10*3/uL (4.8-10.8)
[2021-06-05 10:01] LABS: Alanine Aminotransferase 14 U/L (0-31); Albumin Level 3.8 g/dL (3.5-5.0); Alkaline Phosphatase 88 U/L (39-117); Anion Gap 9 (12-20); Aspartate Amino Transferase 15 U/L (5-31); Bilirubin Total 0.5 mg/dL (0.0-1.0); Blood Urea Nitrogen 7 mg/dL (9-16); C Reactive Protein 0.23 mg/dL (< or = 0.50); Calcium 9.8 mg/dL (8.4-10.2); Carbon Dioxide 28 mmol/L (22-29); Chloride 105 mmol/L (96-108); Cholesterol 169 mg/dL; Estimated Glomerular Filt Rate > 60; Glucose Random 92 mg/dL (60-115); HDL Cholesterol 36 mg/dL; LDL Cholesterol Calculated 115 mg/dl; Potassium 4.7 mmol/L (3.3-5.1); Sodium 137 mmol/L (135-145); Triglycerides 93 mg/dL
[2021-06-05 10:24] LABS: Erythrocyte Sedimentation Rate 30 MM/HR (0-20)
[2021-06-05 10:46] LABS: Appearance Urine CLEAR; Color Urine YELLOW; Glucose Urine UA NEG (NEG); Leukocyte Esterase Urine NEG (NEG); Nitrite Urine NEG (NEG); PH 6.5 (5.0-8.0); Specific Gravity - Urine <= 1.005 (1.005-1.025); UACC Culture Trigger NO; Urine Blood 1+ (NEG); Urine Ketones NEG (NEG); Urine Protein NEG (NEG-TRACE)
[2021-06-05 11:21] LABS: RBC Urine 0-2 /HPF (0); WBC Urine 0 /HPF (0-4)
== END 2021-06-05 08:45 | disposition home or self-care (01) ==
LOC: HO.LAB 08:44
PROVIDERS: Absent Provider Internal Medicine; PCP Internal Medicine; Visit Provider Nurse Practitioner Family
DX: M06.9 Rheumatoid arthritis, unspecified (principal); E78.5 Hyperlipidemia, unspecified; E55.9 Vitamin D deficiency, unspecified
CPT/HCPCS: 36415; 80053; 80061; 81001; 82306; 85025; 85652; 86140

== ENCOUNTER → 2021-06-06 09:41 | Outpatient (BNVA) | payer OTHER, SELFPAY | PROVIDERS: PCP Internal Medicine; Visit Provider Nurse Practitioner Family | DX: M06.9 Rheumatoid arthritis, unspecified (principal); R31.9 Hematuria, unspecified | CPT/HCPCS: 99212 ==

== ENCOUNTER 2021-07-11 12:26 | Outpatient (REF) | payer OTHER, SELFPAY ==
[2021-07-11 12:56] LABS: COVID-19 Test Negative (Negative); IDNOW Serial# 16C4AD1C
== END 2021-07-11 12:27 | disposition home or self-care (01) ==
LOC: HO.LAB 12:26
PROVIDERS: Visit Provider Internal Medicine
DX: Z20.822 Contact with and (suspected) exposure to COVID-19 (principal)
CPT/HCPCS: 87635; C9803

== ENCOUNTER 2021-08-29 16:25 | Outpatient (REF) | payer OTHER, SELFPAY ==
[2021-08-29 16:38] LABS: MANUAL DIFF FLAG NO
[2021-08-29 17:06] LABS: Basophils Absolute Auto 0.1 X10*3/uL (0.0-0.2); Basophils Percent Auto 0.5 % (0-2); Eosinophils Percent Auto 0.3 % (0-4); Hematocrit 39.5 % (37.0-47.0); Hemoglobin 13.1 g/dl (12.0-16.0); Imm Gran Abs Auto 0.03 X10*3/uL (0.00-0.03); Imm Gran Pct Auto 0.3 % (0.0-0.4); Lymphocytes Absolute Auto 1.3 X10*3/uL (1.2-4.9); Lymphocytes Percent Auto 13.6 % (20-40); Mean Corpuscular HGB Conc 33.2 g/dl (31.0-35.0); Mean Corpuscular Hemoglobin 29.4 pg (27.0-33.0); Mean Corpuscular Volume 88.6 fL (80.0-98.0); Mean Platelet Volume 10.1 fL (9.4-12.3); Monocytes Absolute Auto 0.4 X10*3/uL (0.1-1.2); Monocytes Percent Auto 3.8 % (2-11); Neutrophils Percent Auto 81.5 % (45-73); Platelet Count 274 X10*3/uL (160-400); Red Blood Count 4.46 X10*6/uL (4.20-5.50); Red Cell Distribution Width 12.8 % (11.0-16.0); White Blood Count 9.8 X10*3/uL (4.8-10.8)
[2021-08-29 17:24] LABS: Alanine Aminotransferase 24 U/L (0-31); Alkaline Phosphatase 105 U/L (39-117); Anion Gap 10 (12-20); Aspartate Amino Transferase 21 U/L (5-31); Bilirubin Total 0.3 mg/dL (0.0-1.0); Blood Urea Nitrogen 11 mg/dL (9-16); C Reactive Protein 0.07 mg/dL (< or = 0.50); Calcium 9.6 mg/dL (8.4-10.2); Carbon Dioxide 27 mmol/L (22-29); Chloride 105 mmol/L (96-108); Estimated Glomerular Filt Rate > 60; Glucose Random 99 mg/dL (60-115); Potassium 4.4 mmol/L (3.3-5.1); Sodium 138 mmol/L (135-145); Total Protein 7.1 g/dL (6.5-8.0)
[2021-08-29 17:37] LABS: Erythrocyte Sedimentation Rate 12 MM/HR (0-20)
== END 2021-08-29 16:26 | disposition home or self-care (01) ==
LOC: HO.LAB 16:25
PROVIDERS: PCP Internal Medicine; Visit Provider Nurse Practitioner Family
DX: M06.9 Rheumatoid arthritis, unspecified (principal)
CPT/HCPCS: 36415; 80053; 85025; 85652; 86140

== ENCOUNTER 2021-08-30 08:57 | Outpatient (REF) | payer OTHER, SELFPAY ==
--- NOTE | ~2021-08-30 | XR_ITS ---
EXAMINATION: XR CHEST CLINICAL INFORMATION: Chest pain. COMPARISON: None TECHNIQUE: 2 views of the chest were obtained. FINDINGS: No significant abnormality is noted involving the heart, lungs, mediastinum, bony thorax or soft tissues. XR/XR chest 2V IMPRESSION: No acute cardiopulmonary process.
== END 2021-08-30 08:58 | disposition home or self-care (01) ==
LOC: HO.HMGCX 08:57
PROVIDERS: Absent Provider Internal Medicine; PCP Internal Medicine; Visit Provider Nurse Practitioner Family
DX: R07.9 Chest pain, unspecified (principal); M06.9 Rheumatoid arthritis, unspecified; R31.9 Hematuria, unspecified
CPT/HCPCS: 71046; 99212

== ENCOUNTER 2021-10-08 17:23 | Emergency (ER) | payer OTHER, SELFPAY ==
--- NOTE | ~2021-10-08 | US_ITS ---
EXAMINATION: US VENOUS WITH DOPPLER LOWER EXTREMITY, LEFT CLINICAL INFORMATION: Pain and swelling. COMPARISON: Previous exam February 2019. TECHNIQUE: Ultrasound of the deep veins is performed from the hip to the calf with compression sonography and color and pulse Doppler assessment. Spectral analysis with color-flow imaging is performed. 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 This is new in the interval from 2019 exam. The left common femoral, profunda, remainder of the superficial femoral, popliteal and posterior tibial and peroneal veins in the calf are patent. There is no significant popliteal fossa cyst. 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 This is new in the interval from 2019 exam. Short-term followup exam in several days may be helpful.
[2021-10-08 18:30] VITALS: BP 108/78; PULSE 62; RESP 18; TEMP 36.9; O2SAT 100; BMI 18.8
[2021-10-08 18:51] LABS: COVID-19 Test Positive (Negative)
[2021-10-09 03:17] VITALS: BP 139/73; PULSE 60; RESP 18; TEMP 36.7; O2SAT 100
[2021-10-09 03:31] LABS: D Dimer High Sensitivity < 150 NG/ML
--- NOTE | 2021-10-09 03:50 | ED.GENADULT ---
HPI - General Adult General Chief complaint: Extremity Problem Stated complaint: ?blood clot Time Seen by Provider: 10/09/21 01:25 Source: patient Mode of arrival: ambulatory History of Present Illness HPI narrative: 56-year-old female with history of factor 5 Leiden presents with complaints of sore throat and pain behind her left knee that she is concerned about because there is warmth and swelling and she has had a history of blood clots in the past. She denies any current use of blood clots at this time. She does report recent COVID exposure from her daughter. Related Data Home Medications Medication Instructions Recorded Confirmed cholecalciferol (vitamin D3) 10 10 mcg PO DAILY 11/05/20 09/13/21 mcg (400 unit) capsule Lactobacillus acidophilus 10 10,000 mmu cells PO DAILY 06/11/21 09/13/21 billion cell capsule (Probiotic) biotin 300 mcg tablet 300 mcg PO DAILY 06/11/21 09/13/21 magnesium 100 mg tablet 150 mg PO DAILY 06/11/21 09/13/21 selenium 200 mcg capsule 200 mcg PO DAILY 06/11/21 09/13/21 vitamin B complex 1 cap PO DAILY 06/11/21 09/13/21 Previous Rx's Medication Instructions Recorded hydroxychloroquine 200 mg tablet 200 mg PO DAILY #30 tab 06/06/21 (Plaquenil) prednisone 5 mg tablet 5 mg PO DAILY #90 tab 06/07/21 Allergies Allergy/AdvReac Type Severity Reaction Status Date / Time hazelnut Allergy Intermediate tongue Verified 10/08/21 18:30 swelling cat dander Allergy Mild sneezing Verified 10/08/21 18:30 pineapple Allergy itchy Verified 10/08/21 18:30 throat Beef Containing Products AdvReac bloating Verified 10/08/21 18:30 joshua AdvReac bloating Verified 10/08/21 18:30 zucchini AdvReac bloating Uncoded 09/13/21 11:09 Review of Systems Review of Systems: Pertinent positives and negatives as stated in HPI 10 point review of systems is otherwise negative. [facility] Past Medical History Source: nursing notes reviewed Medical History Adrenal nodule Annual physical exam Anxiety Factor V deficiency, congenital Hx of cataract Hx of deep venous thrombosis Lung nodule seen on imaging study Normal pelvic exam Onychomycosis Rheumatoid arthritis Takes dietary supplements Vitamin D deficiency Surgical History History of section History of unilateral fallopian tube excision History of uterine fibroid Hx of colonoscopy Family History Family History Father Kidney disease Heart disease Mother Heart disease CVD (cardiovascular disease) Paternal Aunt Breast cancer Social History Social History Housing: House Patient Tobacco Use Status: Never used Tobacco e-Cigarette/Vaping Use: Never Used Advance Directives: No Advance Directives Information Provided: No Patient : No Current occupational status: employed and unemployed 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 GENERAL: Well developed, well nourished, in no acute distress. HEAD: Normocephalic/atraumatic EYES: PERRLA, EOMI EARS: Ext canals without abnormality OROPHARYNX: no oral lesions noted, posterior pharynx clear LUNGS: Normal breath sounds. SpO2<100> CARDIOVASCULAR: Regular rate and rhythm without noted murmurs ABDOMEN: Soft, non-tender, non-distended with bowel sounds. MUSCULOSKELETAL: No tenderness, deformities, or effusions noted on gross inspection. EXTREMITIES: No cyanosis, clubbing or edema. SKIN: Inspection of the skin reveals no rashes NEUROLOGIC: Alert and oriented x 4. Strength and sensation to light touch were grossly intact x 4. Course Course Course Narrative: 56-year-old female with history and clinical presentation after review of all investigations of COVID-19 positivity, patient did get a venous duplex which shows: Hypoechoic material against the wall of the superficial femoral vein in the mid thigh questionable for changes from old DVT. This is new in the interval from 2019 exam. Short-term followup exam in several days may be helpful. Due to the ambiguity in the context of the risks associated with anticoagulation a D-dimer was obtained and was negative. All results were discussed with the patient at bedside, she was reassured, and recommended to use [id number] Tylenol/ibuprofen for discomfort and follow-up with her primary care provider for repeat venous ultrasound after she completes her isolation for COVID-19. Medical Decision Making Lab Data Labs: Lab Results 10/08/21 10/09/21 Range/Units 18:39 03:11 D-Dimer High Sensitivty < 150 NG/ML COVID-19 ([facility]) Positive A (Negative) COVID-19 Clin Com See Note Discharge Plan Discharge Clinical Impression: Lab test positive for detection of COVID-19 virus, Posterior left knee pain Patient Disposition: Home, Self-Care Instructions: COVID-19 (Coronavirus Disease 2019) (ED), Knee Pain (ED) Additional Instructions: 1. Please resume all home medications as prescribed. 2. You have been diagnosed with COVID-19 and as per CDC guidelines you should isolate for 5 days from onset of symptoms, and then follow all [place] and Federal guidelines regarding COVID. 3. Follow-up with your primary care provider by calling the office in the morning and discuss repeat testing on your leg after you have isolated for COVID-19. Return to the ER for worsening symptoms. Prescriptions: No Action biotin 300 mcg Tablet 300 mcg PO DAILY 0RF magnesium 100 mg Tablet 150 mg PO DAILY 0RF vitamin B complex [B Complex] Capsule 1 cap PO DAILY 0RF selenium 200 mcg Capsule 200 mcg PO DAILY 0RF Probiotic 10 billion cell Capsule 10,000 mmu cells PO DAILY 0RF cholecalciferol (vitamin D3) 10 mcg (400 unit) capsule 10 mcg PO DAILY 0RF hydroxychloroquine [Plaquenil] 200 mg tablet 200 mg PO DAILY Qty: 30 3RF prednisone 5 mg tablet 5 mg PO DAILY Qty: 90 1RF Referrals: Laura Cortez MD [Primary Care Provider] - Interventions: ED Discharge Assessment Last Done: 10/09/21 03:58
== END 2021-10-09 04:06 | disposition home or self-care (01) ==
PROVIDERS: Emergency Provider Student in an Organized Health Care Education/Training Program; PCP Internal Medicine
DX: U07.1 COVID-19 (principal); R60.0 Localized edema; M25.562 Pain in left knee; Z79.899 Other long term (current) drug therapy
CPT/HCPCS: 36415; 85379; 87635; 93971; 99284

== ENCOUNTER 2021-12-31 13:58 | Outpatient (REF) | payer OTHER, SELFPAY ==
--- NOTE | ~2021-12-31 | US_ITS ---
EXAMINATION: US VENOUS ULTRASOUND WITH DOPPLER LOWER EXTREMITY, LEFT CLINICAL INFORMATION: Follow-up DVT COMPARISON: Previous exams most recent September 2021 TECHNIQUE: Ultrasound of the deep veins is performed from the hip to the calf with compression sonography and color and pulse Doppler assessment. Spectral analysis with color-flow imaging is performed. FINDINGS: There is normal venous compression and respiratory variation and augmented flow. The visualized common femoral vein, superficial femoral vein, profunda femoral vein, popliteal vein, and the trifurcation region shows no evidence of deep venous thrombosis. There is no significant popliteal fossa cyst. US/US venous duplex LE LT IMPRESSION: No DVT demonstrated in the left lower extremity.
== END 2021-12-31 13:59 | disposition home or self-care (01) ==
LOC: HO.US 13:58
PROVIDERS: Visit Provider Internal Medicine
DX: R93.6 Abnormal findings on diagnostic imaging of limbs (principal); I82.402 Acute embolism and thrombosis of unspecified deep veins of left lower extremity
CPT/HCPCS: 93971

== ENCOUNTER → 2022-01-29 15:25 | Outpatient (REF) | payer OTHER, SELFPAY ==
--- NOTE | 2022-01-29 15:34 | ECG_ITS ---
Test Reason : UNSPEC CHEST PAIN Blood Pressure : / mmHG Vent. Rate : 057 BPM Atrial Rate : 057 BPM P-R Int : 164 ms QRS Dur : 092 ms QT Int : 430 ms P-R-T Axes : 056 058 050 degrees QTc Int : 418 ms Sinus bradycardia Otherwise normal ECG No previous ECGs available Referred By: Vernell Ghotra Electronically Signed By:JULIO NAVARRO
[2022-01-29 15:43] LABS: MANUAL DIFF FLAG NO
[2022-01-29 15:53] LABS: Basophils Percent Auto 0.5 % (0-2); Eosinophils Absolute Auto 0.1 X10*3/uL (0.0-0.4); Eosinophils Percent Auto 1.4 % (0-4); Hematocrit 43.2 % (37.0-47.0); Imm Gran Abs Auto 0.01 X10*3/uL (0.00-0.03); Imm Gran Pct Auto 0.1 % (0.0-0.4); Lymphocytes Absolute Auto 2.4 X10*3/uL (1.2-4.9); Lymphocytes Percent Auto 31.2 % (20-40); Mean Corpuscular HGB Conc 32.4 g/dl (31.0-35.0); Mean Corpuscular Hemoglobin 28.9 pg (27.0-33.0); Mean Corpuscular Volume 89.1 fL (80.0-98.0); Monocytes Absolute Auto 0.6 X10*3/uL (0.1-1.2); Monocytes Percent Auto 7.6 % (2-11); Neutrophils Absolute Auto 4.6 x10*3/uL (2.0-8.3); Neutrophils Percent Auto 59.2 % (45-73); Platelet Count 253 X10*3/uL (160-400); Red Blood Count 4.85 X10*6/uL (4.20-5.50); Red Cell Distribution Width 12.3 % (11.0-16.0); White Blood Count 7.7 X10*3/uL (4.8-10.8)
[2022-01-29 16:30] LABS: Erythrocyte Sedimentation Rate 12 MM/HR (0-20)
[2022-01-29 17:16] LABS: Alanine Aminotransferase 23 U/L (0-31); Aspartate Amino Transferase 21 U/L (5-31); C Reactive Protein 0.08 mg/dL (< or = 0.50); Estimated Glomerular Filt Rate > 60
[2022-01-29 18:12] LABS: Appearance Urine Clear; Color Urine Yellow; Glucose Urine UA Negative (Negative); Leukocyte Esterase Urine Large (3+) (Negative); Nitrite Urine Negative (Negative); PH 8.5 (5.0-9.0); Specific Gravity - Urine <= 1.005 (1.005-1.025); Urine Blood Trace (Negative); Urine Ketones Negative (Negative); Urine Protein Negative (Neg-Trace)
[2022-01-29 18:27] LABS: Bacteria Urine None Seen (None Seen); Hyaline Casts Urine 0-2 /LPF (0-2); Squamous Epithelial Cell Urine 0-2 /HPF (0-2); UACC Culture Trigger YES; WBC Urine 0-5 /HPF (0-5)
== END ==
LOC: HO.CARD 15:25
PROVIDERS: Student in an Organized Health Care Education/Training Program; PCP Internal Medicine; Visit Provider Nurse Practitioner Family
DX: R07.9 Chest pain, unspecified (principal); M06.9 Rheumatoid arthritis, unspecified; Z79.899 Other long term (current) drug therapy; M25.50 Pain in unspecified joint
CPT/HCPCS: 36415; 81001; 82565; 84450; 84460; 85025; 85652; 86140; 87086; 93005; 99212

== ENCOUNTER → 2022-07-07 11:06 | Outpatient (BNVA) | payer OTHER, SELFPAY | PROVIDERS: PCP Internal Medicine; Visit Provider Nurse Practitioner Family | DX: M06.9 Rheumatoid arthritis, unspecified (principal) | CPT/HCPCS: 99212 ==

== ENCOUNTER 2022-08-14 09:14 | Outpatient (REF) | payer OTHER, SELFPAY ==
--- NOTE | ~2022-08-14 | MM_ITS ---
EXAMINATION: BONE DENSITOMETRY CLINICAL INDICATION: Long-term (current) use of systemic steroids. COMPARISON: None (current study represents initial baseline exam). TECHNIQUE: Using a [employer] DXA System (software version: 13.1) manufactured by [employer] dual-energy x-ray absorptiometry was performed of the lumbar spine and left hip. The images are of good technical quality. Summary results are attached. FINDINGS: AP SPINE L1-L4: BMD 0.766 g/cm2, Z-score -2.5, T-score -3.5, osteoporosis. LEFT FEMUR, NECK: BMD 0.519 g/cm2, Z-score -2.6, T-score -3.7, osteoporosis. LEFT FEMUR, TOTAL: BMD 0.512 g/cm2, Z-score -3.2, T-score -3.9, osteoporosis. IDENTIFIED RISK FACTORS: Menopause, rheumatoid arthritis, glucocorticoids (chronic), right oophorectomy. HISTORY OF FRACTURE: None listed. MEDICATIONS: Vitamin D. MM/XR DEXA axial skeleton IMPRESSION: 1. DIAGNOSIS: Osteoporosis based on the lowest T-score value of -3.9 in the total femur applying World Health Organization criteria. 2. 10-YEAR FRACTURE RISK PREDICTION, FRAX: According to the guidelines, FRAX calculation should only be performed on patients in the osteopenia bone density category. Therefore, FRAX was not performed on this patient. 3. Treatment Recommendations: NOF guidelines recommend consideration for treatment in postmenopausal women and men age 50 and older presenting with the following: -A hip or vertebral (clinical or morphometric) fracture. -T-score less than or equal to -2.5 at the femoral neck or spine after appropriate evaluation to exclude secondary causes. -Low bone mass at the hip or spine and a 10-year fracture probability by FRAX of greater than or equal to 3% for hip fracture or greater than or equal to 20% for major osteoporotic fracture based on the [place] adapted WHO algorithm. 4. Other Recommendations: All treatment decisions require clinical judgment and consideration of individual patient factors, including patient preferences, comorbidities, previous drug use, risk factors not captured in the FRAX model (e.g. frailty, falls, vitamin D deficiency, increased bone turnover, interval significant decline in bone density) and possible under or overestimation of fracture risk by FRAX. Additional medical evaluation for secondary cause of low bone mineral density may be appropriate. FUTURE SCAN RECOMMENDATION: People with diagnosed cases of osteoporosis or at high risk for fracture should have regular bone mineral density tests. For patients eligible for Medicare, routine testing is allowed once every 2 years. The testing frequency can be increased to one year for patients who have rapidly progressing disease, those who are receiving or discontinuing medical therapy to restore bone mass, or have additional risk factors.
== END 2022-08-14 09:15 | disposition home or self-care (01) ==
LOC: HO.MAMMO 09:14
PROVIDERS: PCP Internal Medicine; Visit Provider Nurse Practitioner Family
DX: Z13.820 Encounter for screening for osteoporosis (principal); Z79.52 Long term (current) use of systemic steroids; Z78.0 Asymptomatic menopausal state
CPT/HCPCS: 77080

== ENCOUNTER 2022-08-19 09:22 | Outpatient (REF) | payer OTHER, SELFPAY ==
[2022-08-19 09:36] LABS: MANUAL DIFF FLAG NO
[2022-08-19 09:59] LABS: Basophils Absolute Auto 0.1 X10*3/uL (0.0-0.2); Basophils Percent Auto 0.7 % (0-2); Eosinophils Absolute Auto 0.1 X10*3/uL (0.0-0.4); Eosinophils Percent Auto 1.6 % (0-4); Hematocrit 44.6 % (37.0-47.0); Hemoglobin 14.5 g/dl (12.0-16.0); Imm Gran Abs Auto 0.02 X10*3/uL (0.00-0.03); Imm Gran Pct Auto 0.3 % (0.0-0.4); Lymphocytes Percent Auto 28.3 % (20-40); Mean Corpuscular HGB Conc 32.5 g/dl (31.0-35.0); Mean Corpuscular Hemoglobin 28.7 pg (27.0-33.0); Mean Corpuscular Volume 88.1 fL (80.0-98.0); Mean Platelet Volume 10.2 fL (9.4-12.3); Monocytes Absolute Auto 0.5 X10*3/uL (0.1-1.2); Monocytes Percent Auto 6.6 % (2-11); Neutrophils Absolute Auto 4.3 x10*3/uL (2.0-8.3); Neutrophils Percent Auto 62.5 % (45-73); Platelet Count 259 X10*3/uL (160-400); Red Blood Count 5.06 X10*6/uL (4.20-5.50); Red Cell Distribution Width 12.6 % (11.0-16.0)
[2022-08-19 10:41] LABS: Alanine Aminotransferase 21 U/L (0-31); Aspartate Amino Transferase 22 U/L (5-31); C Reactive Protein < 0.10 mg/dL (< or = 0.50); Erythrocyte Sedimentation Rate 8 MM/HR (0-20); Estimated Glomerular Filt Rate > 60
[2022-08-19 10:50] LABS: Vitamin D 25-OH Total 35.2 ng/mL (>30)
== END 2022-08-19 09:23 | disposition home or self-care (01) ==
LOC: HO.LAB 09:22
PROVIDERS: PCP Internal Medicine; Visit Provider Nurse Practitioner Family
DX: M81.0 Age-related osteoporosis without current pathological fracture (principal); M06.9 Rheumatoid arthritis, unspecified; Z79.899 Other long term (current) drug therapy
CPT/HCPCS: 36415; 82306; 82565; 84450; 84460; 85025; 85652; 86140

== ENCOUNTER 2022-09-01 08:53 | Outpatient (REF) | payer OTHER, SELFPAY ==
--- NOTE | ~2022-09-01 | MM_ITS ---
EXAMINATION: MM SCREENING DIGITAL BREAST TOMOSYNTHESIS, BILATERAL CLINICAL INFORMATION: Screening. Asymptomatic. The lifetime risk of breast cancer based on the Tyrer-Cuzick Model is 15%. COMPARISON: Mammography: 01/10/2021, 05/01/2011, 01/24/2010; right breast ultrasound 01/10/2021, 01/24/2010 TECHNIQUE: Digital breast tomosynthesis is performed in both the craniocaudal and mediolateral oblique views along with computer-aided detection (CAD). Synthesized 2D images are generated from the tomosynthesis. FINDINGS: The breasts are heterogeneously dense, which may obscure small masses (ACR BI-RADS breast composition Category c). Parenchymal pattern is similar to prior studies. Scattered asymmetries are stable. There is no developing density or architectural abnormality. There are no significant masses, abnormal calcifications, or other abnormalities. The axilla and skin contours are unremarkable. No significant changes from prior exams. MM/MM tomosynthesis screening BI IMPRESSION: No significant changes from prior studies. ASSESSMENT: BI-RADS 2: Benign RECOMMENDATION: Routine annual mammography screening. This patient's information was entered into a reminder system with a target due date for their next mammogram.
== END 2022-09-01 08:54 | disposition home or self-care (01) ==
LOC: HO.MAMMO 08:53
PROVIDERS: PCP Internal Medicine; Visit Provider Internal Medicine
DX: Z12.31 Encounter for screening mammogram for malignant neoplasm of breast (principal)
CPT/HCPCS: 77063; 77067

== ENCOUNTER 2022-09-13 09:23 | Emergency (ER) | payer OTHER, SELFPAY ==
--- NOTE | ~2022-09-13 | XR_ITS ---
EXAMINATION: XR RIBS, RIGHT CLINICAL INFORMATION: Right rib pain and tenderness. COMPARISON: Chest radiographs dated 09/09/2021. TECHNIQUE: 3 views of the right ribs were obtained along with a PA view of the chest. A skin marker overlies the inferior right ribs. FINDINGS: Lungs are clear. No consolidation, pneumothorax, or pleural effusion. The cardiomediastinal silhouette and pulmonary vasculature are normal. Osseous structures are unremarkable. Ribs are intact. No fractures are identified. XR/XR ribs RT min 3V w CXR1V IMPRESSION: Unremarkable examination.
[2022-09-13 09:32] VITALS: BP 154/72; PULSE 59; RESP 17; TEMP 36.6; O2SAT 99; BMI 20.3
--- NOTE | 2022-09-13 09:41 | ED.GENADULT ---
HPI - General Adult General Chief complaint: General Medical Stated complaint: rib pain, inj 09/09 Time Seen by Provider: 09/13/22 09:41 Source: patient Mode of arrival: ambulatory Limitations: no limitations History of Present Illness HPI narrative: Injured ribs while reaching across car [place] 4 days ago. Worse with lying on her side or coughing or laughing. Onset (ago): day(s) Location: chest Severity: mild Quality: sharp Pain Consistency: intermittent Associated symptoms: denies other symptoms Related Data Home Medications Medication Instructions Recorded Confirmed cholecalciferol (vitamin D3) 10 10 mcg PO DAILY 11/05/20 09/13/21 mcg (400 unit) capsule Lactobacillus acidophilus 10 10,000 mmu cells PO DAILY 06/11/21 09/13/21 billion cell capsule (Probiotic) biotin 300 mcg tablet 300 mcg PO DAILY 06/11/21 09/13/21 magnesium 100 mg tablet 150 mg PO DAILY 06/11/21 09/13/21 selenium 200 mcg capsule 200 mcg PO DAILY 06/11/21 09/13/21 vitamin B complex 1 cap PO DAILY 06/11/21 09/13/21 prednisone 2.5 mg tablet 2.5 mg PO DAILY 07/07/22 07/07/22 Previous Rx's Medication Instructions Recorded hydroxychloroquine 200 mg tablet 300 mg PO DAILY #45 tabs 07/08/22 (Plaquenil) lorazepam 0.5 mg tablet 0.5 mg PO DAILY PRN anxiety #4 tabs 07/31/22 bisacodyl 5 mg tablet,delayed 10 mg PO ONCE colonoscopy prep 1 08/07/22 release (Dulcolax (bisacodyl)) day #2 tabs polyethylene glycol 3350 17 238 g PO ONCE 1 day #238 grams 08/07/22 gram/dose oral powder (Miralax) naproxen 500 mg tablet (Naprosyn) 500 mg PO BID #20 tabs 09/13/22 Allergies Allergy/AdvReac Type Severity Reaction Status Date / Time hazelnut Allergy Intermediate tongue Verified 07/07/22 11:29 swelling cat dander Allergy Mild sneezing Verified 07/07/22 11:29 pineapple Allergy itchy Verified 07/07/22 11:29 throat Beef Containing Products AdvReac bloating Verified 07/07/22 11:29 joshua AdvReac bloating Verified 07/07/22 11:29 zucchini AdvReac bloating Uncoded 07/07/22 11:29 Review of Systems Review of Systems: Yes all other systems are reviewed and are negative Respiratory: Comments: right rib tendernessw PMFSH Past Medical History Medical History Adrenal nodule Annual physical exam Anxiety Factor V deficiency, congenital Hx of cataract Hx of deep venous thrombosis Lung nodule seen on imaging study Normal pelvic exam Onychomycosis Rheumatoid arthritis Takes dietary supplements Vitamin D deficiency Surgical History History of section History of unilateral fallopian tube excision History of uterine fibroid Hx of colonoscopy Family History Family History Father Kidney disease Heart disease Mother Heart disease CVD (cardiovascular disease) Paternal Aunt Breast cancer Social History Social History Housing: House Patient Tobacco Use Status: Never used Tobacco e-Cigarette/Vaping Use: Never Used Advance Directives: No Advance Directives Information Provided: No Current occupational status: employed and unemployed 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 Cognitive needs: No Hearing needs: No Vision needs: No Physical Exam ED Vital Signs: Vital Signs - 24 hr 09/13/22 09:32 Temperature 98 F Pulse Rate 59 Respiratory Rate 17 Blood Pressure 154/72 H Pulse Oximetry 99 Oxygen Delivery Method Room Air BMI result Body Mass Index 20.3 Const General: healthy appearing Nutritional Appearance: average body habitus Orientation/consciousness: oriented to person and patient oriented x3 Limitations: no limitations HENMT Head: Yes normal to inspection Ears: external ears normal General nose exam: Normal external nose present Mouth: Normal oral and palatal mucosa present and oropharynx normal Throat: Yes posterior oropharynx normal Eyes General: appearance normal, both eyes and all related structures Neck Neck: Yes normal visual inspection Chest Other: right rib tenderness to palpation Resp Auscultation: clear to auscultation bilaterally Cardio Jugular venous distension: no JVD Rate: regular rate Rhythm: regular rhythm Heart sounds: S1 normal heart sound present and S2 normal heart sound present GI Inspection: Yes normal to inspection Palpation (GI): Soft to palpation, nontender and No hepatosplenomegaly present Auscultation: normal bowel sounds General: Yes no CVA tenderness Back/Spine/Pelvis Back: no CVA tenderness Skin General skin exam: no rashes or lesions noted Neuro General: oriented to person and patient oriented x3 Cranial nerves: Yes CN's II-XII intact bilaterally Motor exam (neuro): 5/5 motor strength present throughout Extrem General: Yes normal to inspection Psych Appearance: grossly normal Course Reevaluation(s) Reevaluation #1: no fracture will treat for rib contusion Time: 10:49 Medical Decision Making Differential Diagnosis Differential Diagnoses: The differential diagnosis associated with the presentation includes (rib fracture, rib contusion, pneumothorax, pulmonary contusion) Independent Interpretation I performed an independent interpretation of an: Plain X-Ray (no rib fracture or pulmonary contusion or pneumothorax) Chronic Conditions Patient?s care impacted by: Other (osteoperosis) Discharge Plan Discharge Clinical Impression: Contusion of rib Patient Disposition: Home, Self-Care Instructions: Rib Contusion (ED) Prescriptions: New naproxen [Naprosyn] 500 mg tablet 500 mg PO BID Qty: 20 0RF No Action hydroxychloroquine [Plaquenil] 200 mg tablet 300 mg PO DAILY Qty: 45 3RF lorazepam 0.5 mg tablet 0.5 mg PO DAILY PRN (Reason: anxiety) Qty: 4 0RF bisacodyl [Dulcolax (bisacodyl)] 5 mg tablet,delayed release (DR/EC) 10 mg PO ONCE 1 Days Qty: 2 0RF Rx Instructions: Take 2 tablets by mouth at 12:00pm the day before your procedure. polyethylene glycol 3350 [Miralax] 17 gram/dose powder 238 g PO ONCE 1 Days Qty: 238 0RF Rx Instructions: Take as directed by mouth the day before your procedure. biotin 300 mcg Tablet 300 mcg PO DAILY magnesium 100 mg Tablet 150 mg PO DAILY vitamin B complex [B Complex] Capsule 1 cap PO DAILY selenium 200 mcg Capsule 200 mcg PO DAILY Probiotic 10 billion cell Capsule 10,000 mmu cells PO DAILY cholecalciferol (vitamin D3) 10 mcg (400 unit) capsule 10 mcg PO DAILY prednisone 2.5 mg tablet 2.5 mg PO DAILY
== END 2022-09-13 11:22 | disposition home or self-care (01) ==
PROVIDERS: Emergency Provider Emergency Medicine; PCP Internal Medicine
DX: S20.219A Contusion of unspecified front wall of thorax, initial encounter (principal); X50.9XXA Other and unspecified overexertion or strenuous movements or postures, initial encounter; Y93.89 Activity, other specified; Y92.810 Car as the place of occurrence of the external cause; Y99.9 Unspecified external cause status
CPT/HCPCS: 71101; 99283

== ENCOUNTER → 2022-10-03 11:37 | Outpatient (BNVA) | payer OTHER, SELFPAY | PROVIDERS: PCP Internal Medicine; Visit Provider Nurse Practitioner Family | DX: M06.9 Rheumatoid arthritis, unspecified (principal); M81.0 Age-related osteoporosis without current pathological fracture | CPT/HCPCS: 99212 ==

== ENCOUNTER 2022-11-03 10:47 | Day surgery (SDC) | payer OTHER, SELFPAY ==
[2022-10-30 15:58] VITALS: BMI 20.7
[2022-11-03 11:43] VITALS: BP 109/57; PULSE 67; RESP 16; TEMP 36.5; O2SAT 100; BMI 22.1
--- NOTE | 2022-11-03 12:00 | HO.ANESPROP2 ---
Documented by User: Mar Reilly NP 10/31/22 12:50 HPI - Anesthesia Eval Consult details Narrative: 57yo F for Colonoscopy Factor V, Hx DVT PMFSH Active Problems Active Problems: All Active Problems (Updated 10/03/22 @ 22:58 by Vernell Ghotra NP) Osteoporosis (Acute) Serrated adenoma of colon (Acute) Leg pain, left (Acute) Rash (Acute) Abnormal ultrasound of lower extremity (Acute) Adrenal nodule (Acute) Lung nodule seen on imaging study (Acute) Hx of colonoscopy (Acute) Normal pelvic exam (Acute) EVERARDO positive (Acute) Encounter for screening colonoscopy (Acute) Right rotator cuff tendinitis (Acute) Vitamin D deficiency (Acute) Rheumatoid arthritis (Acute) Onychomycosis (Acute) Anxiety (Acute) Annual physical exam (Acute) Past Medical History Medical History (Updated 11/03/22 @ 07:22 by Clifton Herrera MD) Adrenal nodule Annual physical exam Anxiety Factor V deficiency, congenital Hx of cataract Hx of deep venous thrombosis Lung nodule seen on imaging study Normal pelvic exam Onychomycosis Rheumatoid arthritis Takes dietary supplements Vitamin D deficiency Family History Family History Father Kidney disease Heart disease Mother Heart disease CVD (cardiovascular disease) Mental health disorder Substance use disorder Paternal Aunt Breast cancer Brother Substance use disorder Surgical History Surgical History History of section History of unilateral fallopian tube excision History of uterine fibroid Hx of colonoscopy History of Problems with Anesthesia: No Social History Social History Housing: House Patient Tobacco Use Status: Never used Tobacco e-Cigarette/Vaping Use: Never Used Use of substances other than those prescribed or required for medical reasons: No Advance Directives: No Advance Directives Information Provided: Yes Current occupational status: employed and unemployed 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 Cognitive needs: No Hearing needs: No Vision needs: No Meds Allergies Allergy/AdvReac Type Severity Reaction Status Date / Time hazelnut Allergy Intermediate tongue Verified 10/03/22 11:55 swelling cat dander Allergy Mild sneezing Verified 10/03/22 11:55 pineapple Allergy itchy Verified 10/03/22 11:55 throat Beef Containing Products AdvReac bloating Verified 10/03/22 11:55 joshua AdvReac bloating Verified 10/03/22 11:55 zucchini AdvReac bloating Uncoded 10/03/22 11:55 Home Medications Medication Instructions Recorded Confirmed Last Taken Type cholecalciferol (vitamin D3) 10 10 mcg PO DAILY 11/05/20 10/03/22 Unknown History mcg (400 unit) capsule Lactobacillus acidophilus 10 10,000 mmu cells PO DAILY 06/11/21 10/03/22 Unknown History billion cell capsule (Probiotic) biotin 300 mcg tablet 300 mcg PO DAILY 06/11/21 10/03/22 Unknown History magnesium 100 mg tablet 150 mg PO DAILY 06/11/21 10/03/22 Unknown History selenium 200 mcg capsule 200 mcg PO DAILY 06/11/21 10/03/22 Unknown History vitamin B complex 1 cap PO DAILY 06/11/21 10/03/22 Unknown History Exam Exam Date and Time: October 31, 2022 1249 Height,Weight and Vital Signs: Height 5 ft 7 in Weight 59.874 kg Narrative Narrative: EKG 01/2022 Vent. Rate : 057 BPM ? ? Atrial Rate : 057 BPM ?? P-R Int : 164 ms? QRS Dur : 092 ms ? ? QT Int : 430 ms ? ? ? P-R-T Axes : 056 058 050 degrees ?? QTc Int : 418 ms ? Sinus bradycardia Otherwise normal ECG No previous ECGs available Assessment and Plan Assessment Anesthesia Assessment: Chart Reviewed Final Anesthetic Review History of Problems with Anesthesia: No Documented by User: Patricia Stephenson DO 11/03/22 12:19 [facility] Past Medical History Medical History (Updated 11/03/22 @ 07:22 by Clifton Herrera MD) Adrenal nodule Annual physical exam Anxiety Factor V deficiency, congenital Hx of cataract Hx of deep venous thrombosis Lung nodule seen on imaging study Normal pelvic exam Onychomycosis Rheumatoid arthritis Takes dietary supplements Vitamin D deficiency Family History Family History Father Kidney disease Heart disease Mother Heart disease CVD (cardiovascular disease) Mental health disorder Substance use disorder Paternal Aunt Breast cancer Brother Substance use disorder Surgical History Surgical History History of section History of unilateral fallopian tube excision History of uterine fibroid Hx of colonoscopy History of Problems with Anesthesia: No Social History Social History Housing: House Patient Tobacco Use Status: Never used Tobacco e-Cigarette/Vaping Use: Never Used Use of substances other than those prescribed or required for medical reasons: No Advance Directives: No Advance Directives Information Provided: Yes Current occupational status: employed and unemployed 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 Cognitive needs: No Hearing needs: No Vision needs: No Meds Allergies Allergy/AdvReac Type Severity Reaction Status Date / Time hazelnut Allergy Intermediate tongue Verified 10/03/22 11:55 swelling cat dander Allergy Mild sneezing Verified 10/03/22 11:55 pineapple Allergy itchy Verified 10/03/22 11:55 throat Beef Containing Products AdvReac bloating Verified 10/03/22 11:55 joshua AdvReac bloating Verified 10/03/22 11:55 zucchini AdvReac bloating Uncoded 10/03/22 11:55 Home Medications Medication Instructions Recorded Confirmed Last Taken Type cholecalciferol (vitamin D3) 10 10 mcg PO DAILY 11/05/20 10/03/22 Unknown History mcg (400 unit) capsule Lactobacillus acidophilus 10 10,000 mmu cells PO DAILY 06/11/21 10/03/22 Unknown History billion cell capsule (Probiotic) biotin 300 mcg tablet 300 mcg PO DAILY 06/11/21 10/03/22 Unknown History magnesium 100 mg tablet 150 mg PO DAILY 06/11/21 10/03/22 Unknown History selenium 200 mcg capsule 200 mcg PO DAILY 06/11/21 10/03/22 Unknown History vitamin B complex 1 cap PO DAILY 06/11/21 10/03/22 Unknown History Exam Exam Date and Time: November 03, 2022 1200 Height,Weight and Vital Signs: Height 5 ft 7 in Weight 59.874 kg Vital Signs Temperature 97.7 F 06/12/23 11:43 Pulse Rate 67 11/03/22 11:43 Respiratory Rate 16 11/03/22 11:43 Blood Pressure 109/57 L 11/03/22 11:43 Pulse Oximetry 100 11/03/22 11:43 Oxygen Delivery Method Room Air 11/03/22 11:43 Temperature 97.7 F 11/03/22 11:43 Pulse Rate 67 11/03/22 11:43 Respiratory Rate 16 11/03/22 11:43 Blood Pressure 109/57 L 11/03/22 11:43 Pulse Oximetry 100 11/03/22 11:43 Oxygen Delivery Method Room Air 11/03/22 11:43 Airway Mallampati Class: I TM Dist: >3cm Neck ROM: Full Loose/Missing/Broken Teeth: No Heart: S1S2 Lungs: CTAB Assessment and Plan Assessment Anesthesia Assessment: Anesthesia Plan Discussed and Chart Reviewed Final Anesthetic Review History of Problems with Anesthesia: No NPO: Yes ASA Class: II Final Preanesthetic Review: No Changes in Pt Med Stat, Meds/Allgs Chart Reviewed, Consent Obtained/Reviewed and Anes Risks/Benef Reviewed Patient Risk: Low Procedure Risk: Low Anesthetic Plan Anesthetic Plan: MAC: and Agree w/ Assess. and Plan Disposition: Standard PACU
--- NOTE | 2022-11-03 12:03 | MHC.SHP ---
Pre-Procedural Eval Section A Date of Service: 11/03/22 The patient is an INPATIENT: No The History & Physical has been completed within 30 days and I have reviewed it.: No Section B Chief Complaint: screening, history of colon polyps Relevant Family History (Specify if Yes): No Relevant Social History: None Present Medications: see Short Stay Collaborative assessment Medical History: Significant History (Anxiety Factor V deficiency, congenital Hx of cataract Hx of deep venous thrombosis Lung nodule seen on imaging study Normal pelvic exam Onychomycosis Rheumatoid arthritis Takes dietary supplements Vitamin D deficiency) History of Previous Operations: Relevant previous surgery/procedure and date(s) (History of section History of unilateral fallopian tube excision History of uterine fibroid Hx of colonoscopy) Allergies: Allergies Allergy/AdvReac Type Severity Reaction Status Date / Time hazelnut Allergy Intermediate tongue Verified 10/03/22 11:55 swelling cat dander Allergy Mild sneezing Verified 10/03/22 11:55 pineapple Allergy itchy Verified 10/03/22 11:55 throat Beef Containing Products AdvReac bloating Verified 10/03/22 11:55 joshua AdvReac bloating Verified 10/03/22 11:55 zucchini AdvReac bloating Uncoded 10/03/22 11:55 Review of Systems Sugical H&P ROS: Negative: Constitution, Cardiovascular, Respiratory and Gastrointestinal Exam Surgical H&P Exam: Normal: Heart, Normal: Lungs, Normal: Extremities and Normal: Abdomen Plan Diagnosis/Plan: Unchanged I have reviewed the history and physical and performed a pertinent physical examination on my patient. No changes have occurred unless specified. Time Spent With Patient Time: Total time managing care of this patient today ____ minutes.
--- NOTE | 2022-11-03 12:05 | W.PM.OPN ---
Operative Note Operative Note Date of Service: 11/03/22 Narrative: COLONOSCOPY TILL CECUM WITH SNARE POLYPECTOMY, SUBMUCOSAL INJECTION AND HEMOCLIP PLACEMENT Pre-op diagnosis: colon cancer screening, history of colon polyps Post-op diagnosis:? colon polyp, diverticulosis, hemorrhoids Endoscopist:? Johan Link MD Anesthesia:?MAC Consent: Indications for the procedure and potential complications of bleeding, perforation, reaction to medications and missed diagnosis were discussed with the patient and informed consent was obtained. Instrument: Olympus PCF H 190 L variable stiffness pediatric colonoscope Monitoring: Vital signs and clinical assessment, intermittent blood pressure monitoring, continuous EKG monitoring, Pulse oximetry and Carbon Dioxide monitoring were done throughout the procedure. Please see anesthesia flowsheet. Colon withdrawl time was 21 minutes. Procedure: The patient was placed in the left lateral decubitis position and pre-procedure medications were administered. After a digital rectal examination of the ano-rectum, the video colonoscope was inserted into the rectum and advanced through the colon to the cecum. The colonoscope was slowly withdrawn in a retrograde panoramic fashion and the colon mucosa was carefully examined including a retroflexed view of the rectum. Findings and interventions are described below. Procedure Difficulty: colon was long and there was some loop formation - no maneuvers were required Findings: Terminal Ileum: Not evaluated Cecum: Partially evaluated due to digested vegetable matter Ascending Colon: A 12-15 mm flat polyp in the proximal AC at 65 cms. Polyp was raised with 3 cc of Eleview and removed with a stiff snare. Polypectomy site was closed with 2 hemoclipps and marked by xavier ink. No recurrent/residual polyp visualized at site of past polypectomy at 65 cms. Transverse Colon: Normal Descending Colon: Normal Sigmoid Colon: Moderate diverticulosis Rectum: Normal Ano-rectum: Small internal hemorrhoids Colon preparation: Good after copious irrigation and fair in some areas of the colon due to undigested vegetable matter which could not be suctioned. Impression and Post Procedure Diagnosis: Colonoscopy Findings: One medium sized polyp removed Moderate diverticulosis seen in the sigmoid colon Small hemorrhoids on retroflexed exam. Plan: I will send a letter with pathology results Repeat Colonoscopy interval based on path results - in 3 years if polyp is adenomatous and due to fair prep (pt reported she was unable to drink the last 16 ounces of the 2nd half of the prep due to nausea - from trying to drink the prep too fast. She thinks she will be able to tolerate the prep if she takes it slowly for her next colonoscopy). Above findings were reviewed with the patient and colon polyps and diverticulosis handouts were given in the discharge area
[2022-11-03 12:55] VITALS: BP 111/61; PULSE 67; RESP 18; TEMP 36.3; O2SAT 100
[2022-11-03 13:14] VITALS: BP 118/64; PULSE 67; RESP 18; TEMP 36.3; O2SAT 99
== END 2022-11-03 13:45 | disposition home or self-care (01) ==
PROVIDERS: PCP Internal Medicine; Visit Provider Internal Medicine Gastroenterology
PROC: 0DJD8ZZ Inspection of Lower Intestinal Tract, Via Natural or Artificial Opening Endoscopic (ICD-10-PCS; CPT 45378; principal; 2022-11-03 12:00)
DX: Z12.11 Encounter for screening for malignant neoplasm of colon (principal); Z86.010 Personal history of colon polyps; D12.2 Benign neoplasm of ascending colon; K57.30 Diverticulosis of large intestine without perforation or abscess without bleeding; K64.8 Other hemorrhoids; D68.2 Hereditary deficiency of other clotting factors; M06.9 Rheumatoid arthritis, unspecified; E78.5 Hyperlipidemia, unspecified; Z79.899 Other long term (current) drug therapy; Z79.1 Long term (current) use of non-steroidal anti-inflammatories (NSAID)
CPT/HCPCS: 45385; 45381; 88305

== ENCOUNTER 2023-01-05 09:25 | Outpatient (REF) | payer OTHER, SELFPAY ==
[2023-01-05 09:55] LABS: MANUAL DIFF FLAG NO
[2023-01-05 10:27] LABS: Basophils Percent Auto 0.7 % (0-2); Eosinophils Absolute Auto 0.2 X10*3/uL (0.0-0.4); Eosinophils Percent Auto 2.9 % (0-4); Hemoglobin 12.8 g/dl (12.0-16.0); Imm Gran Abs Auto 0.02 X10*3/uL (0.00-0.03); Imm Gran Pct Auto 0.4 % (0.0-0.4); Lymphocytes Absolute Auto 1.4 X10*3/uL (1.2-4.9); Lymphocytes Percent Auto 25.1 % (20-40); Mean Corpuscular HGB Conc 32.8 g/dl (31.0-35.0); Mean Corpuscular Hemoglobin 28.4 pg (27.0-33.0); Mean Corpuscular Volume 86.7 fL (80.0-98.0); Mean Platelet Volume 10.5 fL (9.4-12.3); Monocytes Absolute Auto 0.5 X10*3/uL (0.1-1.2); Monocytes Percent Auto 8.7 % (2-11); Neutrophils Absolute Auto 3.5 x10*3/uL (2.0-8.3); Neutrophils Percent Auto 62.2 % (45-73); Platelet Count 221 X10*3/uL (160-400); Red Cell Distribution Width 12.6 % (11.0-16.0); White Blood Count 5.5 X10*3/uL (4.8-10.8)
[2023-01-05 11:18] LABS: Erythrocyte Sedimentation Rate 11 MM/HR (0-20)
[2023-01-05 11:40] LABS: Alanine Aminotransferase 21 U/L (0-31); Albumin Level 3.7 g/dL (3.5-5.0); Alkaline Phosphatase 98 U/L (39-117); Anion Gap 9 (12-20); Aspartate Amino Transferase 25 U/L (5-31); Bilirubin Total 0.4 mg/dL (0.0-1.0); Blood Urea Nitrogen 9 mg/dL (9-16); C Reactive Protein 0.19 mg/dL (< or = 0.50); Calcium 9.2 mg/dL (8.4-10.2); Carbon Dioxide 29 mmol/L (22-29); Chloride 107 mmol/L (96-108); Estimated Glomerular Filt Rate > 60; Glucose Random 90 mg/dL (60-115); Potassium 3.9 mmol/L (3.3-5.1); Sodium 141 mmol/L (135-145); Total Protein 6.8 g/dL (6.5-8.0)
== END 2023-01-05 09:26 | disposition home or self-care (01) ==
LOC: HO.LAB 09:25
PROVIDERS: PCP Internal Medicine; Visit Provider Nurse Practitioner Family
DX: M06.9 Rheumatoid arthritis, unspecified (principal)
CPT/HCPCS: 36415; 80053; 85025; 85652; 86140

== ENCOUNTER 2023-01-06 10:49 | Outpatient (AMB) | payer OTHER, SELFPAY ==
--- NOTE | 2023-01-06 10:51 | A.OFFVIS_ITS ---
Intake Vital Signs 01/06/23 10:52 Height 5 ft 7 in Weight 128 lb 15.527 oz BMI 20.2 BP 112/72 Blood Pressure Location Lt brachial Position Sitting Pulse 66 Pulse Source Pulse Oximeter Temp 97.2 F Temp Source Skin Pulse Oximetry (%) 98 Oxygen Delivery Method Room Air Intake Visit Reasons: Rheumatoid arthritis Intake Note: Here for RA follow up c/o yung feet pain, right x 1 year, left x 6 wks, left wrist bruise s/p itchy bumps Accompanied by: Self / Same As Patient Allergies hazelnut Allergy (Intermediate, Verified 01/06/23 10:52) tongue swelling cat dander Allergy (Mild, Verified 01/06/23 10:52) sneezing pineapple Allergy (Verified 01/06/23 10:52) itchy throat Beef Containing Products Adverse Reaction (Verified 01/06/23 10:52) bloating joshua Adverse Reaction (Verified 01/06/23 10:52) bloating zucchini Adverse Reaction (Uncoded 01/06/23 10:52) bloating HPI HPI Comments History of Present Illness Details The patient returns for evaluation of her rheumatoid arthritis and osteoporosis. She remains on hydroxychloroquine 300 mg daily. She had a trial of treatment with methotrexate but it caused significant hair loss so it was discontinued. She was also on prednisone for a while which of course was helpful but with the finding of osteoporosis the prednisone was tapered and d iscontinued. She remains with significant joint pain in her hands and feet. Other pains include the knees at times and shoulder pain. She has significant difficulty with doorknobs and getting dressed because of the hand pain. Treatment options with the TNF inhibitor have been propose but we are concerned about the potential outcome of a nodule noted on a CT scan of the pelvis done August 2021. She is concerned that if this were malignancy the use of biologics or other immunosuppressive drugs might promote tumor growth. She does have occasional cough but no sputum production, chest pain or shortness of breath. She also has known osteoporosis and has been holding off on antiresorptive therapy because of presence of an infected tooth. She was told she needed to have the tooth removed and an implant placed so she is worried about the effects of antiresorptive agent on healing after such a procedure. On top of all that she is a single mom and her daughter is being treated for a malignant brain tumor. The patient is intermittently tearful recounting her medical problems. COUNTS INCLUDE 234 BEDS AT THE [facility] Medical History (Updated 01/06/23 @ 14:04 by Clifton Herrera MD) Adrenal nodule Annual physical exam Anxiety Factor V deficiency, congenital Hx of cataract Hx of deep venous thrombosis Lung nodule seen on imaging study Normal pelvic exam Onychomycosis Rheumatoid arthritis Takes dietary supplements Vitamin D deficiency Surgical History History of section History of unilateral fallopian tube excision History of uterine fibroid Hx of colonoscopy Family History Father Kidney disease Heart disease Mother Heart disease CVD (cardiovascular disease) Mental health disorder Substance use disorder Paternal Aunt Breast cancer Brother Substance use disorder Social History (Updated 01/06/23 @ 10:59 by DIETER Hogue) Housing: House Alcohol intake: current Alcohol intake frequency: holidays/special occasions only Alcohol type: beer and wine Patient Tobacco Use Status: Never used Tobacco e-Cigarette/Vaping Use: Never Used Current occupational status: employed and unemployed 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 Card Details: Negative chest pain, edema and syncope Resp Details: Occasional nonproductive cough. Negative for SOB and wheezing GI Details: Negative indigestion/heartburn, nausea, abdominal pain, bowel changes, diarrhea, constipation and bloody stool. Details: She had workup in 2021 for some microscopic hematuria. That necessitated imaging in the abdomen which revealed the presence of a small pulmonary nodule at the right lung base. Recently negative for dysuria, hematuria, nocturia, decreased force/flow and genital discharge Skin/Breast Details: Negative for itching, rash, hives, Raynaud's symptoms, sun sensitivity, and skin cancer Neuro Details: Negative for epilepsy, palsy, stroke, changes in speech, tingling and weakness Psych Details: She is very distressed over her medical issues and that of her daughter. She is not sleeping well. Mostly that is because of pain however. Endo Details: Negative for polyuria and polydypsia Jaylon/Lymph Details: Negative for excessive bruising or bleeding. Physical Exam Vital Signs: Last Vital Signs Temp 97.2 F 01/06/23 10:52 Pulse 66 01/06/23 10:52 BP 112/72 01/06/23 10:52 Pulse Ox 98 01/06/23 10:52 Oxygen Delivery Method Room Air 01/06/23 10:52 BMI result Body Mass Index 20.2 APPEARANCE: Patient in no acute distress but tearful at times EYES no redness, pupils equal and reactive to light, eyelids normal NOSE/SINUS: Airflow through both nares, no nasal discharge, no bleeding THROAT: Oral mucosa moist, no ulcerations NECK: No thyromegaly or masses, no adenopathy, trachea midline. HEART: Regulrar rhythm, S1-S2 heard, no murmurs, rubs or gallops. LUNG: Clear to percussion and auscultation ABD: Normal bowel sounds, no organomegaly, masses or tenderness. EXTREMITIES: No edema, no calf tenderness, normal peripheral pulses. JOINT EXAM: ?? Cervical Spine:? Full range of motion without pain; no tenderness. Thoracic Spine:? No tenderness on palpation. Lumbar Spine:? Alignment normal.? Full range of motion without pain, no tenderness. Hands: LEFT:? Mild pain with range of motion of the 2nd through 4th fingers. There is avfo-fj-vauwbsod swelling and mild tenderness of the 2nd through 4th MCP joints. There is also some swelling and tenderness at the 2nd PIP joint. No flexor tendon triggering, thenar atrophy or sensory loss. Right: Painful range of motion of the 2nd and 3rd fingers. There is moderate swelling and mild to moderate tenderness over the 2nd and 3rd MCP joints. There is slight thickening and tenderness at the 2nd and 3rd PIP joints. There is no flexor tendon triggering, thenar atrophy or sensory loss. Wrists:? Right: Mild pain with flexion extension at 75 degrees. Mild swelling and tenderness. Left: Mild pain with flexion extension at 45 degrees with some mild tenderness but no swelling. Elbows: Normal pain-free range of motion without tenderness, swelling, increased warmth or erythema. Shoulders:?? Left: Mild pain with abduction 120 degrees or with more than 20 degrees of internal or external rotation. There is mild anterior tenderness with no adenopathy. There is no swelling or abductor weakness. Right: Full range of motion without pain. No tenderness, weakness, swelling, increased warmth or erythema. Hips:? Full range of motion without pain. Hip bursa:? No tenderness. Knees:?? Normal pain-free range of motion with mild medial compartment tenderness but no effusion, soft tissue swelling, increased warmth or erythema.? There is crepitation Ankles:? Normal pain-free range of motion without tenderness, swelling, increased warmth or erythema. Feet:? LEFT: Mild pain with range of motion of the 2nd through 4th toes. There is soft tissue swelling and mild to moderate tenderness at the 2nd, 3rd and 4th MTP joints. No other areas of tenderness or swelling. ? RIGHT: Mild pain with range of motion of the 2nd and 3rd toes. The 2nd and 3rd toes or splayed. There is soft tissue swelling, moderate tenderness at the 2nd and 3rd MTP joints but no redness or warmth. Elsewhere there is no tenderness,increased warmth or erythema. ? Results Reviewed Results Reviewed: [facility] [place] [facility] [address] [place] [address] 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 COMPARISON: None TECHNIQUE: 2 views of the chest were obtained. FINDINGS: No significant abnormality is noted involving the heart, lungs, mediastinum, bony thorax or soft tissues. XR/XR chest 2V IMPRESSION: No acute cardiopulmonary process. Dictated By: Ra Denton MD July 25, 2021 CT abdomen done to investigate hematuria showed 5 mm R lower lobe nodule on views of the lower lungs Assessment & Plan Assessment & Plan (1) Pulmonary nodule: Code(s): R91.1 - Solitary pulmonary nodule (2) Osteoporosis: Comment: Dexa 07/2022: T-score -3.9 in the femur. 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 There is concern of course with her being seropositive that she could progress to more destructive disease if she is not adequately treated with a DMARD. She had toxicity with the methotrexate. She is also concerned about the possibility of similar hair loss with leflunomide. The hydroxychloroquine has been minimally if any helpful right now. Other options include TNF inhibitors or J;AK-1 inhibitor. Both of those a course are significantly more immunosuppressive. than her current regimen. They also may have an affect on a possible malignancy so having a better handle on the etiology and potential change in the lower lobe nodule would be appropriate for now. We will repeat her chest x-ray to see if there has been any detection of that on a regular film. She will probably need however a CT of the chest in order to fully assess the nodule. For now I do not think we can add any significantly effective DMARD to her regimen until we get a better handle on the status of the pulmonary nodule. Additionally she needs treatment for osteoporosis. She is needing dental treatment for the tooth. She does not think she can afford it right now. I suggested she talk to the dentist about a less expensive temporizing measures so we could potentially give the patient a bisphosphonate for her osteoporosis. We will schedule her back for a month or so but in the meantime we will be working on the workup of her pulmonary nodule. 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
[2023-01-06 10:52] VITALS: BP 112/72; PULSE 66; TEMP 36.2; O2SAT 98; BMI 20.2
== END 2023-01-06 11:46 | disposition home or self-care (01) ==
PROVIDERS: PCP Internal Medicine; Visit Provider Internal Medicine Rheumatology
DX: R91.1 Solitary pulmonary nodule (principal); M81.0 Age-related osteoporosis without current pathological fracture; Z79.899 Other long term (current) drug therapy; M06.9 Rheumatoid arthritis, unspecified
CPT/HCPCS: 99214

== ENCOUNTER → 2023-01-06 10:49 | Outpatient (BNVA) | payer OTHER, SELFPAY | PROVIDERS: PCP Internal Medicine; Visit Provider Internal Medicine Rheumatology | DX: M06.9 Rheumatoid arthritis, unspecified (principal); R91.1 Solitary pulmonary nodule; M81.0 Age-related osteoporosis without current pathological fracture; Z79.899 Other long term (current) drug therapy | CPT/HCPCS: 99212 ==

== ENCOUNTER 2023-02-02 08:55 | Outpatient (REF) | payer OTHER, SELFPAY ==
--- NOTE | ~2023-02-02 | XR_ITS ---
EXAMINATION: XR CHEST CLINICAL INFORMATION: Right lower lobe nodule seen on CT of the abdomen from 2021. Question growth. COMPARISON: None available. TECHNIQUE: 2 views of the chest were obtained. FINDINGS: No significant abnormality is noted involving the heart, lungs, mediastinum, bony thorax or soft tissues. No lung nodule is seen. XR/XR chest 2V IMPRESSION: Unremarkable examination. Please note that the clinical history reads Right lower lobe nodule seen on CT of the abdomen from 2021. Question growth. No prior CT scan is available for comparison. No lung nodule is identified on this chest x-ray. Please note that chest x-ray is significantly less sensitive, specific, and reproducible than CT scan in the detection and follow-up of lung nodules.
== END 2023-02-02 08:56 | disposition home or self-care (01) ==
LOC: HO.XRAY 08:55
PROVIDERS: PCP Internal Medicine; Visit Provider Internal Medicine Rheumatology
DX: R91.1 Solitary pulmonary nodule (principal)
CPT/HCPCS: 71046

== ENCOUNTER 2023-03-05 07:23 | Outpatient (REF) | payer OTHER, SELFPAY ==
--- NOTE | ~2023-03-05 | CT_ITS ---
EXAMINATION: CT CHEST WITHOUT CONTRAST CLINICAL INFORMATION: Pulmonary nodule. COMPARISON: Chest radiographs dated 02/02/2023. TECHNIQUE: Multidetector volumetric CT imaging of the chest was done. Axial MIP volume rendering provided. Sagittal and coronal reformatted images were obtained. This CT examination was performed using dose optimization techniques as appropriate, variously including the following: *Automated exposure control *Adjustment of mA and/or kV according to patient size (this includes techniques or standardized protocols for targeted exams where dose is matched to indication/reason for exam; i.e. extremities or head) *Use of iterative reconstruction technique DLP: 108 mGy-cm FINDINGS: FLIGHT TEST MECHANIC: The lungs are symmetrically well-expanded and grossly clear. LUNGS: Medially within the right upper lobe (5:140), a 3 mm noncalcified nodule is seen. There are right upper lobe endobronchial densities (5:201 and 290). Medially within the right upper lobe (5:241), a 5 mm noncalcified nodule is seen. Within the anterior segment of the right upper lobe (5:264), a 3 mm noncalcified nodule is seen. There are several benign fissural lymph nodes applied to the accessory fissure, the largest measuring 4 mm (5:329). Within the lateral segment of the right middle lobe (5:357 and 422), there are 2 noncalcified nodules. Within the lateral basal segment of the right lower lobe (5:425), a 3 mm noncalcified nodule is seen. At the right posterior costophrenic angle (5:559 and 559 and 567), a 4 mm subpleural noncalcified nodule is seen, and there is a 7 mm benign pleural-based lymph node. Within the anterior segment of the left upper lobe laterally (5:239), a 3 mm noncalcified nodule is seen. Within the lingula (5:404 and 472), 2 noncalcified 3 mm benign, pleural-based lymph nodes are seen. Within the superior segment of the left lower lobe (5:205), a 5 mm noncalcified nodule is seen. Centrally within the left lower lobe (5:400), a 3 mm noncalcified nodule is seen. In the lateral basal segment of the left lower lobe (5:459), a 5 mm noncalcified nodule is seen. There are a few further scattered 1-2 mm noncalcified left lung nodules. There is mild biapical pleural and parenchymal scarring. No mass, infiltrate or groundglass opacity is seen. There is no generalized increase in peripheral interlobular septal markings. No generalized small airway thickening is seen. The central airways appear patent. MEDIASTINUM: The mediastinum is normal. CORONARY ARTERY CALCIFICATION: None visualized on this study. PLEURA: There is no pleural effusion. No pleural mass or thickening. AXILLA: No lymphadenopathy. UPPER ABDOMEN: Unremarkable. OSSEOUS STRUCTURES: Unremarkable. CT/CT chest wo IV con IMPRESSION: 1. Multiple bilateral noncalcified, nonspecific pulmonary nodules are seen, the largest parenchymal nodules bilaterally measuring 5 mm. According to the UPDATED 2017 Fleischner Society recommendations, the advised follow-up imaging for solid nodules < 6 mm is: LOW RISK PATIENT: No routine follow-up. HIGH RISK PATIENT: Optional CT at 12 months. 2. No pulmonary mass, infiltrate or groundglass opacity is seen. 3. There is no thoracic lymphadenopathy or pleural effusion. 4. Osseous structures are unremarkable. Fleischner guidelines were followed.
== END 2023-03-05 07:24 | disposition home or self-care (01) ==
LOC: HO.CT 07:23
PROVIDERS: PCP Internal Medicine; Visit Provider Internal Medicine Rheumatology
DX: R91.1 Solitary pulmonary nodule (principal)
CPT/HCPCS: 71250

== ENCOUNTER → 2023-05-12 09:11 | Outpatient (REF) | payer OTHER, SELFPAY | LOC: HO.SL 09:11 | PROVIDERS: PCP Internal Medicine; Visit Provider Internal Medicine | DX: G47.30 Sleep apnea, unspecified (principal); R06.83 Snoring | CPT/HCPCS: 95806 ==

== ENCOUNTER → 2023-05-12 09:42 | Outpatient (BNV) | payer OTHER, SELFPAY | PROVIDERS: PCP Internal Medicine; Visit Provider Internal Medicine | DX: R06.83 Snoring (principal) | CPT/HCPCS: 95806 ==

== ENCOUNTER 2023-09-17 11:22 | Outpatient (REF) | payer OTHER, SELFPAY ==
[2023-09-17 11:30] LABS: MANUAL DIFF FLAG NO
[2023-09-17 12:36] LABS: Basophils Percent Auto 0.3 % (0-2); Eosinophils Absolute Auto 0.1 X10*3/uL (0.0-0.4); Eosinophils Percent Auto 0.8 % (0-4); Hematocrit 39.6 % (37.0-47.0); Hemoglobin 13.4 g/dl (12.0-16.0); Imm Gran Abs Auto 0.03 X10*3/uL (0.00-0.03); Imm Gran Pct Auto 0.3 % (0.0-0.4); Lymphocytes Absolute Auto 1.8 X10*3/uL (1.2-4.9); Lymphocytes Percent Auto 21.3 % (20-40); Mean Corpuscular HGB Conc 33.8 g/dl (31.0-35.0); Mean Corpuscular Hemoglobin 29.5 pg (27.0-33.0); Mean Platelet Volume 10.8 fL (9.4-12.3); Monocytes Absolute Auto 0.6 X10*3/uL (0.1-1.2); Monocytes Percent Auto 6.5 % (2-11); Neutrophils Absolute Auto 6.1 x10*3/uL (2.0-8.3); Neutrophils Percent Auto 70.8 % (45-73); Platelet Count 257 X10*3/uL (160-400); Red Blood Count 4.55 X10*6/uL (4.20-5.50); Red Cell Distribution Width 12.6 % (11.0-16.0); White Blood Count 8.6 X10*3/uL (4.8-10.8)
[2023-09-17 14:02] LABS: Erythrocyte Sedimentation Rate 19 MM/HR (0-20)
[2023-09-17 14:12] LABS: Alanine Aminotransferase 24 U/L (0-31); Albumin Level 3.9 g/dL (3.5-5.0); Alkaline Phosphatase 118 U/L (39-117); Anion Gap 8 (12-20); Aspartate Amino Transferase 25 U/L (5-31); Bilirubin Total 0.5 mg/dL (0.0-1.0); Blood Urea Nitrogen 9 mg/dL (9-16); C Reactive Protein 0.23 mg/dL (< or = 0.50); Calcium 9.4 mg/dL (8.4-10.2); Carbon Dioxide 28 mmol/L (22-29); Chloride 108 mmol/L (96-108); Cholesterol 200 mg/dL (<200); Estimated Glomerular Filt Rate > 60; Glucose Fasting 85 mg/dL (60-99); HDL Cholesterol 47 mg/dL (>40); LDL Cholesterol Calculated 138 mg/dL (<100); Potassium 3.6 mmol/L (3.3-5.1); Sodium 140 mmol/L (135-145); Total Protein 7.5 g/dL (6.5-8.0); Triglycerides 78 mg/dL (<150)
[2023-09-17 14:34] LABS: TSH reflex Free T4 2.36 uIU/mL (0.32-4.0); Vitamin D 25-OH Total 40.6 ng/mL (>30)
== END 2023-09-17 11:23 | disposition home or self-care (01) ==
LOC: HO.LAB 11:22
PROVIDERS: Student in an Organized Health Care Education/Training Program; PCP Internal Medicine; Visit Provider Internal Medicine
DX: E55.9 Vitamin D deficiency, unspecified (principal); M06.9 Rheumatoid arthritis, unspecified; M81.0 Age-related osteoporosis without current pathological fracture; Z79.899 Other long term (current) drug therapy
CPT/HCPCS: 36415; 80053; 80061; 82306; 84443; 85025; 85652; 86140

== ENCOUNTER 2023-09-21 11:33 | Outpatient (AMB) | payer OTHER, SELFPAY ==
[2023-09-21 11:36] VITALS: BP 118/84; PULSE 66; O2SAT 98; BMI 20.1
--- NOTE | 2023-09-21 11:36 | A.OFFPC_ITS ---
Vital Signs 09/21/23 11:36 Height 5 ft 7 in Weight 128 lb 6 oz BMI 20.1 BP 118/84 Blood Pressure Location Rt brachial Position Sitting Pulse 66 Pulse Source Pulse Oximeter Pulse Oximetry (%) 98 Oxygen Delivery Method Room Air Intake Visit Reasons: Annual PE Allergies hazelnut Allergy (Intermediate, Verified 09/21/23 11:36) tongue swelling cat dander Allergy (Mild, Verified 09/21/23 11:36) sneezing pineapple Allergy (Verified 09/21/23 11:36) itchy throat Beef Containing Products Adverse Reaction (Verified 09/21/23 11:36) bloating joshua Adverse Reaction (Verified 09/21/23 11:36) bloating zucchini Adverse Reaction (Uncoded 01/06/23 10:52) bloating Tobacco use date assessed: 09/21/23 Dental Screening Dental Screen Date: 09/21/23 Did you have a dental visit in the last 12 months?: Yes Did you have a dental problem in the last 6 months where you did not have access to dental care?: No Was dental information given to patient?: Patient has dentist HPI Annual PE HPI Details Pt presents for PE. Pt is starting Duloxetine for anxiety. Pt has been under a stress related to her daughter's health. Pt c/o bilateral hand joint pain, swelling and stiffness worse in AM. Pt follows up with rheumatology. [facility] Medical History (Updated 09/21/23 @ 15:29 by Laura Cortez MD) Annual physical exam Adrenal nodule Lung nodule seen on imaging study Normal pelvic exam Hx of cataract Hx of deep venous thrombosis Takes dietary supplements Vitamin D deficiency Factor V deficiency, congenital Rheumatoid arthritis Onychomycosis Anxiety Surgical History Hx of colonoscopy History of uterine fibroid History of unilateral fallopian tube excision History of section Family History Father Kidney disease Heart disease Mother Heart disease CVD (cardiovascular disease) Mental health disorder Substance use disorder Paternal Aunt Breast cancer Brother Substance use disorder Social History Housing: House Alcohol intake: current Alcohol intake frequency: holidays/special occasions only Alcohol type: beer and wine Patient Tobacco Use Status: Never used Tobacco e-Cigarette/Vaping Use: Never Used Current occupational status: employed and unemployed 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 1. Little interest or pleasure in doing things: more than half the days 2. Feeling down, depressed, or hopeless: nearly every day 3. Trouble falling or staying asleep, or sleeping too much: more than half the days 4. Feeling tired or having little energy: nearly every day 5. Poor appetite or overeating: several days 6. Feeling bad about yourself - or that you are a failure or have let yourself or your family down: several days 7. Trouble concentrating on things, such as reading the newspaper or watching television: nearly every day 8. Moving or speaking so slowly that other people could have noticed. Or the opposite - being so fidgety or restless that you have been moving around a lot more than usual: several days 9. Thoughts that you would be better off or of hurting yourself in some way: several days Total score: 17 Depression Screening Interpretation: Positive (Patient is established with psychiatrist and a therapist) Depression Screening Follow-up: Existing condition and In treatment Depression Screening Done: Yes [id number] - PHQ-9 Billing: Yes Source: Developed by Drs. Jace Grier, Anya Nguyen, Alonzo Doyle and colleagues, with an educational dewey from [employer]. Thrive Questionnaire Date Thrive assessed: 09/21/23 I am a: Patient What is your living situation today?: I have a steady place to live Within the past 12 months, did the food you bought not last and you didn't have the money to get more?: Sometimes True Within the past 12 months, did you worry whether your food would run out before you got money to buy more?: Sometimes True Do you have trouble paying for medicines?: No Do you have trouble getting transportation to medical appointments?: No Do you have trouble paying your heating and electricity bill?: Yes Do you have trouble taking care of your child, family member or friend?: No Do you have trouble with day-to-day activities such as bathing, preparing meals, shopping, managing finances, etc.?: No Are you currently unemployed and looking for a job?: Yes Are you interested in more education?: Yes THRIVE Score: 3 AUDIT C Alcohol Use Questionnaire (AUDIT-C) 1. How often do you have a drink containing alcohol?: Never 3. How often do you have six or more drinks on one occasion?: Never Total Score: 0 Score Reviewed/Action Taken: Yes JOSÉ MIGUEL-7 AMB Questionnaire JOSÉ MIGUEL-7 Date JOSÉ MIGUEL - 7 assessed: 09/21/23 Feeling nervous, anxious, or on edge: 3 = Nearly every day Not being able to stop or control worryin = Nearly every day Worrying too much about different things: 3 = Nearly every day Trouble relaxin = More than half the days Being so restless that it is hard to sit still: 1 = Several days Becoming easily annoyed or irritable: 2 = More than half the days Feeling afraid as if something awful might happen: 3 = Nearly every day Total JOSÉ MIGUEL-7 score (0-4 normal; 5-9 mild; 10-14 moderate; 15-21 severe): 17 Source: Developed by Drs. Jace Grier, Anya Nguyen, Alonzo Doyle and colleagues, with an educational dewey from [employer]. Review of Systems Const All systems reviewed & are unremarkable except as noted in HPI and below Reports no additional complaints Eyes Reports no additional complaints ENT Reports no additional complaints Card Reports no additional complaints Resp Reports no additional complaints GI Reports no additional complaints Reports no additional complaints Physical exam (Primary Care) Vital Signs: Last Vital Signs Pulse 66 09/21/23 11:36 BP 118/84 09/21/23 11:36 Pulse Ox 98 09/21/23 11:36 Oxygen Delivery Method Room Air 09/21/23 11:36 BMI result Body Mass Index 20.1 Tobacco/Smoking Status: Tobacco use Status Tobacco use date assessed 09/21/23 09/21/23 11:37 Patient Tobacco Use Status Never used Tobacco 09/21/23 11:37 e-Cigarette/Vaping Use Never Used 09/21/23 11:37 PHQ-9: PHQ-9 Score PHQ-9: Total score 17 09/21/23 13:14 Depression Screening Interpretation: Positive (Patient is established with psychiatrist and a therapist) Depression Screening Follow-up: Existing condition and In treatment Thrive Assessment: Date of Thrive Assessment Date Thrive assessed 09/21/23 09/21/23 12:52 Const General: no acute distress HENMT Head: Yes normal to inspection Ears: hearing grossly normal bilaterally Face and sinus: Yes normal facial exam Throat: Yes posterior oropharynx normal Eyes General: appearance normal, both eyes and all related structures Neck Neck: Yes no lymphadenopathy and Yes supple Resp Effort & Inspection: normal respiratory effort Auscultation: clear to auscultation bilaterally Cardio Rhythm: regular rhythm Heart sounds: S1 normal heart sound present and S2 normal heart sound present GI Inspection: Yes normal to inspection Palpation (GI): Soft to palpation Percussion: Yes normal to percussion Auscultation: normal bowel sounds Assessment and Plan Assessment & Plan (1) Osteoporosis: Comment: Dexa 07/2022: T-score -3.9 in the femur. Potential medication options discussed with patient July 2022, reviewed again August 2022, patient declines to start treatment for osteoporosis at this time due to tooth abscess Code(s): M81.0 - Age-related osteoporosis without current pathological fracture Plan: Continue vitamin-D, osteoporosis treatment discussed with the patient she is in treatment for tooth abscess and would like to postpone any treatment until resolution of a dental problem (2) Rheumatoid arthritis: Comment: Methotrexate-12/2020-01/2021- hair loss Plaquenil -03/2021 to present (eye exam 05/07/2021, 10/31/22, 04/2023) Prednisone- 05/2021 to July 2022 Code(s): M06.9 - Rheumatoid arthritis, unspecified Plan: Follow-up with rheumatology (3) Anxiety: Comment: Established with psychiatrist and therapist Code(s): F41.9 - Anxiety disorder, unspecified Plan: Continue current medications and follow-up with the psychiatrist and therapist (4) Annual physical exam: Code(s): Z00.00 - Encounter for general adult medical examination without abnormal findings Plan: Well-balanced diet regular physical activity discussed with the patient she is up-to-date with the mammogram colonoscopy and had a negative Pap smear 3 years ago Coding Level of Care Code Est Pt Prev Care 40-64y(70231) Diagnoses Osteoporosis M81.0 Rheumatoid arthritis M06.9 Anxiety F41.9 Annual physical exam Z00.00
== END 2023-09-21 14:41 | disposition home or self-care (01) ==
PROVIDERS: Visit Provider Internal Medicine
DX: Z00.00 Encounter for general adult medical examination without abnormal findings (principal); M81.0 Age-related osteoporosis without current pathological fracture; M06.9 Rheumatoid arthritis, unspecified; F41.9 Anxiety disorder, unspecified
CPT/HCPCS: 99396

== ENCOUNTER 2023-10-12 12:55 | Outpatient (AMB) | payer OTHER, SELFPAY ==
[2023-10-12 13:01] VITALS: BP 124/72; PULSE 62; O2SAT 98; BMI 20.4
--- NOTE | 2023-10-12 13:01 | MHC.OFFVIS ---
Vital Signs 10/12/23 13:01 Height 5 ft 7 in Weight 130 lb 1.164 oz BMI 20.4 BP 124/72 Blood Pressure Location Rt brachial Position Sitting Pulse 62 Pulse Source Pulse Oximeter Pulse Oximetry (%) 98 Oxygen Delivery Method Room Air Intake Visit Reasons: RA Intake Note: Patient last seen by Dr Herrera 01/06/23 presents today for follow up. Reports taking [employer] Sxbbm for gut health. C/o pain and swelling in hands. Pt became tearful because her hands and toes are changing Also reports bl shoulder pain, worse at night Blueprint Developer Required: No Accompanied by: Self / Same As Patient Allergies hazelnut Allergy (Intermediate, Verified 10/12/23 13:14) tongue swelling cat dander Allergy (Mild, Verified 10/12/23 13:14) sneezing pineapple Allergy (Verified 10/12/23 13:14) itchy throat Beef Containing Products Adverse Reaction (Verified 10/12/23 13:14) bloating joshua Adverse Reaction (Verified 10/12/23 13:14) bloating zucchini Adverse Reaction (Uncoded 10/12/23 13:14) bloating Medication List - Last Reconciled 10/12/23 by Raad Blake MD biotin 300 mcg PO DAILY cholecalciferol (vitamin D3) 10 mcg PO DAILY duloxetine 30 mg PO DAILY hydroxychloroquine 300 mg (1.5 x 200 mg) PO DAILY Lactobacillus acidophilus (Probiotic) 10,000 mmu cells PO DAILY lorazepam 0.5 mg PO DAILY PRN 8 days magnesium 150 mg PO DAILY selenium 200 mcg PO DAILY vitamin B complex 1 cap PO DAILY HPI Comments Details: 58-year-old female with seropositive RA returns for follow-up. Patient missed her last office visit as she had an appointment with her daughter who was diagnosed with cancer. Patient remains on hydroxychloroquine 1.5 tabs daily. She states that she is doing much worse overall. Continues to have pain and swelling of her knuckles. Pain in her toes. She has morning stiffness of her hands and feet lasting 3-4 hours. Pain with walking. Difficulty raising her shoulders above her head. She starting to have deformities of her right foot toes. She found a dietary therapy for rheumatoid arthritis. Called an elimination diet. She fasted for a couple of days with improvement of her symptoms then she had to follow a specific elimination diet that she was not able to follow regularly. Patient is tearful about her own health condition as well as her daughter's Initial history: The patient returns for evaluation of her rheumatoid arthritis and osteoporosis. She remains on hydroxychloroquine 300 mg daily. She had a trial of treatment with methotrexate but it caused significant hair loss so it was discontinued. She was also on prednisone for a while which of course was helpful but with the finding of osteoporosis the prednisone was tapered and discontinued. She remains with significant joint pain in her hands and feet. Other pains include the knees at times and shoulder pain. She has significant difficulty with doorknobs and getting dressed because of the hand pain. Treatment options with the TNF inhibitor have been propose but we are concerned about the potential outcome of a nodule noted on a CT scan of the pelvis done August 2021. She is concerned that if this were malignancy the use of biologics or other immunosuppressive drugs might promote tumor growth. She does have occasional cough but no sputum production, chest pain or shortness of breath. She also has known osteoporosis and has been holding off on antiresorptive therapy because of presence of an infected tooth. She was told she needed to have the tooth removed and an implant placed so she is worried about the effects of antiresorptive agent on healing after such a procedure. On top of all that she is a single mom and her daughter is being treated for a malignant brain tumor. The patient is intermittently tearful recounting her medical problems. [facility] Medical History Annual physical exam Adrenal nodule Lung nodule seen on imaging study Normal pelvic exam Hx of cataract Hx of deep venous thrombosis Takes dietary supplements Vitamin D deficiency Factor V deficiency, congenital Rheumatoid arthritis Onychomycosis Anxiety Surgical History Hx of colonoscopy History of uterine fibroid History of unilateral fallopian tube excision History of section Family History Father Kidney disease Heart disease Mother Heart disease CVD (cardiovascular disease) Mental health disorder Substance use disorder Paternal Aunt Breast cancer Brother Substance use disorder Social History Housing: House Alcohol intake: current Alcohol intake frequency: holidays/special occasions only Alcohol type: beer and wine Patient Tobacco Use Status: Never used Tobacco e-Cigarette/Vaping Use: Never Used Current occupational status: employed and unemployed 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 Cognitive needs: No Hearing needs: No Vision needs: No Review of Systems Musc Reports deformity, Reports arthralgias, Reports joint swelling and Reports stiffness Psych Reports depression Physical Exam Vital Signs: Last Vital Signs Pulse 62 10/12/23 13:01 BP 124/72 10/12/23 13:01 Pulse Ox 98 10/12/23 13:01 Oxygen Delivery Method Room Air 10/12/23 13:01 BMI result Body Mass Index 20.4 Const General: cooperative, healthy appearing and comfortable Nutritional Appearance: average body habitus Orientation/consciousness: patient oriented x3 Limitations: no limitations HEENT Head: Yes normocephalic and Yes atraumatic Mouth: moist mucous membranes Resp Effort & Inspection: normal respiratory effort and able to speak in complete sentences Auscultation: clear to auscultation bilaterally Cardio Rate: regular rate Rhythm: regular rhythm Neuro General: patient oriented x3 Extrem Other: Significant swelling erythema and warmth of bilateral 2nd and 3rd MCPs, significant tenderness to palpation Normal range of motion of wrists without pain No wrist tenderness bilaterally Normal range of motion of elbows without pain Significantly limited range of motion of shoulders bilaterally Bilateral 2nd and 3rd MTP tenderness Assessment & Plan Assessment & Plan (1) Rheumatoid arthritis: Comment: ++RF +++CCP Methotrexate-12/2020-01/2021- hair loss Plaquenil -03/2021 to present (eye exam 05/07/2021, 10/31/22, 04/2023) Prednisone- 05/2021 to July 2022 Code(s): M06.9 - Rheumatoid arthritis, unspecified Category: Medical Qualifiers: Rheumatoid arthritis location: multiple sites Rheumatoid factor presence: with rheumatoid factor Qualified Code(s): M05.79 - Rheumatoid arthritis with rheumatoid factor of multiple sites without organ or systems involvement Plan: This is a 58-year-old female with seropositive deforming RA who presents as a new patient for me. Patient's RA seems to be progressive she has multiple swollen and tender joints and multiple deformities on exam. Today we had a long discussion about her disease, its management and prognosis. The need for a stronger DMARD. Discussed risks and benefits of leflunomide. Patient agreed to proceed. Start leflunomide 10 mg daily for 2 weeks then 50 mg daily Labs in 6 weeks and before next visit in 12 weeks continue hydroxychloroquine 300 mg daily (2) Lung nodule seen on imaging study: Code(s): R91.1 - Solitary pulmonary nodule Category: Medical Plan: Recent CT chest reassuring. Will discuss referral to a head grower next visit (3) Osteoporosis: Comment: Dexa 07/2022: T-score -3.9 in the femur. Potential medication options discussed with patient July 2022, reviewed again August 2022, patient declines to start treatment for osteoporosis at this time due to tooth abscess Code(s): M81.0 - Age-related osteoporosis without current pathological fracture Category: Medical Qualifiers: Osteoporosis type: age-related Presence of current pathological fracture: without current pathological fracture Qualified Code(s): M81.0 - Age-related osteoporosis without current pathological fracture Plan: Patient declined treatment in the past. We will discuss further next visit (4) Long-term use of hydroxychloroquine: Code(s): Z79.899 - Other middle or intermediate school principal (current) drug therapy Category: Medical Plan: Discussed risk of retinopathy associated with hydroxychloroquine. Will request records from shake out worker (5) FPC use of drug: Code(s): Z79.899 - Other middle or intermediate school principal (current) drug therapy Category: Medical Plan: Monitor safety labs for leflunomide Plan I spent 50 minutes reviewing patient's chart, evaluating patient, ordering diagnostic workup, counseling patient and documenting in the chart Orders: Orders Hepatitis A,B,C Profile 6 Weeks Z11.59 - Encounter for screening for other viral diseases Complete Blood Count Auto Diff 12 Weeks M06.9 - Rheumatoid arthritis, unspecified, Z79.899 - Other middle or intermediate school principal (current) drug therapy C Reactive Protein 12 Weeks M06.9 - Rheumatoid arthritis, unspecified, Z79.899 - Other middle or intermediate school principal (current) drug therapy Complete Blood Count Auto Diff 6 Weeks M06.9 - Rheumatoid arthritis, unspecified, Z79.899 - Other correction (current) drug therapy Comprehensive Met. Panel 6 Weeks M06.9 - Rheumatoid arthritis, unspecified, Z79.899 - Other middle or intermediate school principal (current) drug therapy C Reactive Protein 6 Weeks M06.9 - Rheumatoid arthritis, unspecified, Z79.899 - Other middle or intermediate school principal (current) drug therapy Erythrocyte Sedimentation Rate 6 Weeks M06.9 - Rheumatoid arthritis, unspecified, Z79.899 - Other middle or intermediate school principal (current) drug therapy T Spot TB 6 Weeks Z11.7 - Encounter for testing for latent tuberculosis infection Comprehensive Met. Panel 12 Weeks M06.9 - Rheumatoid arthritis, unspecified, Z79.899 - Other correction (current) drug therapy Erythrocyte Sedimentation Rate 12 Weeks M06.9 - Rheumatoid arthritis, unspecified, Z79.899 - Other correction (current) drug therapy Medications: New leflunomide Take 1 tab daily for 2 weeks then 2 tabs daily 75 tabs 0RF Coding Level of Care Code Est Pt Level 5 (23617) Diagnoses Rheumatoid arthritis involving multiple sites with positive rheumatoid factor M05.79 Rheumatoid arthritis location: multiple sites Rheumatoid factor presence: with rheumatoid factor Lung nodule seen on imaging study R91.1 Age-related osteoporosis without current pathological fracture M81.0 Osteoporosis type: age-related Presence of current pathological fracture: without current pathological fracture Long-term use of hydroxychloroquine Z79. salvage determiner use of drug Z79.
== END 2023-10-12 13:49 | disposition home or self-care (01) ==
PROVIDERS: PCP Internal Medicine; Visit Provider Student in an Organized Health Care Education/Training Program
DX: M05.79 Rheumatoid arthritis with rheumatoid factor of multiple sites without organ or systems involvement (principal); R91.1 Solitary pulmonary nodule; M81.0 Age-related osteoporosis without current pathological fracture; Z79.899 Other long term (current) drug therapy
CPT/HCPCS: 99215

== ENCOUNTER → 2023-10-12 12:55 | Outpatient (BNVA) | payer OTHER, SELFPAY | PROVIDERS: PCP Internal Medicine; Visit Provider Student in an Organized Health Care Education/Training Program | DX: M05.79 Rheumatoid arthritis with rheumatoid factor of multiple sites without organ or systems involvement (principal); M81.0 Age-related osteoporosis without current pathological fracture; R91.1 Solitary pulmonary nodule; Z79.899 Other long term (current) drug therapy | CPT/HCPCS: 99212 ==

== ENCOUNTER 2024-07-14 13:52 | Outpatient (AMB) | payer OTHER, SELFPAY ==
[2024-07-14 14:08] VITALS: BP 110/62; PULSE 62; O2SAT 98; BMI 18.5
--- NOTE | 2024-07-14 14:08 | A.OFFPC_ITS ---
Vital Signs 07/14/24 14:08 Height 5 ft 7 in Weight 118 lb BMI 18.5 BP 110/62 Blood Pressure Location Rt brachial Position Sitting Pulse 62 Pulse Source Pulse Oximeter Pulse Oximetry (%) 98 Intake Visit Reasons: podiatry referral Allergies hazelnut Allergy (Intermediate, Verified 07/14/24 14:08) tongue swelling cat dander Allergy (Mild, Verified 07/14/24 14:08) sneezing pineapple Allergy (Verified 07/14/24 14:08) itchy throat Beef Containing Products Adverse Reaction (Verified 07/14/24 14:08) bloating joshua Adverse Reaction (Verified 07/14/24 14:08) bloating zucchini Adverse Reaction (Uncoded 10/12/23 13:14) bloating Medication List - Last Reconciled 07/14/24 by Laura Cortez MD biotin 300 mcg PO DAILY cholecalciferol (vitamin D3) 10 mcg PO DAILY hydroxychloroquine 300 mg (1.5 x 200 mg) PO DAILY Lactobacillus acidophilus (Probiotic) 10,000 mmu cells PO DAILY lorazepam 0.5 mg PO DAILY PRN 8 days magnesium 150 mg PO DAILY selenium 200 mcg PO DAILY vitamin B complex 1 cap PO DAILY Tobacco use date assessed: 07/14/24 Dental Screening Dental Screen Date: 07/14/24 Did you have a dental visit in the last 12 months?: Yes Did you have a dental problem in the last 6 months where you did not have access to dental care?: No Was dental information given to patient?: Patient has dentist HPI HPI Comments History of Present Illness Details Patient presents for physical. Her daughter in February from recurrent sarcoma and patient is grieving. She is established with a counselor and a prescriber and will be starting escitalopram today. She denies any suicide ideation. [facility] Medical History Annual physical exam Adrenal nodule Lung nodule seen on imaging study Normal pelvic exam Hx of cataract Hx of deep venous thrombosis Takes dietary supplements Vitamin D deficiency Factor V deficiency, congenital Rheumatoid arthritis Onychomycosis Anxiety Surgical History (Updated 07/14/24 @ 15:16 by Laura Cortez MD) Hx of colonoscopy History of uterine fibroid History of unilateral fallopian tube excision History of section Family History Father Kidney disease Heart disease Mother Heart disease CVD (cardiovascular disease) Mental health disorder Substance use disorder Paternal Aunt Breast cancer Brother Substance use disorder Social History Housing: House Alcohol intake: current Alcohol intake frequency: holidays/special occasions only Alcohol type: beer and wine Patient Tobacco Use Status: Never used Tobacco e-Cigarette/Vaping Use: Never Used Current occupational status: employed and unemployed 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 Cognitive needs: No Hearing needs: No Vision needs: No Questionnaire Thrive Questionnaire Date Thrive assessed: 07/14/24 I am a: Patient What is your living situation today?: I have a steady place to live Within the past 12 months, did the food you bought not last and you didn't have the money to get more?: Sometimes True Within the past 12 months, did you worry whether your food would run out before you got money to buy more?: Sometimes True Do you have trouble paying for medicines?: No Do you have trouble getting transportation to medical appointments?: No Do you have trouble paying your heating and electricity bill?: Yes Do you have trouble taking care of your child, family member or friend?: No Do you have trouble with day-to-day activities such as bathing, preparing meals, shopping, managing finances, etc.?: No Are you currently unemployed and looking for a job?: Yes Are you interested in more education?: Yes Please select the resources that you would like help with: None Currently or been in a relationship where the following occur: No concerns reported THRIVE Score: 3 AUDIT C Alcohol Use Questionnaire (AUDIT-C) 1. How often do you have a drink containing alcohol?: Never 3. How often do you have six or more drinks on one occasion?: Never Total Score: 0 Score Reviewed/Action Taken: Yes JOSÉ MIGUEL-7 AMB Questionnaire JOSÉ MIGUEL-7 Date JOSÉ MIGUEL - 7 assessed: 07/14/24 Source: Developed by Drs. Jace Grier, Anya Nguyen, Alonzo Doyle and colleagues, with an educational dewey from [employer]. Review of Systems Const All systems reviewed & are unremarkable except as noted in HPI and below Eyes Reports no additional complaints ENT Reports no additional complaints Card Reports no additional complaints Resp Reports no additional complaints GI Reports no additional complaints Reports no additional complaints Physical exam (Primary Care) Vital Signs: Last Vital Signs Pulse 62 07/14/24 14:08 BP 110/62 07/14/24 14:08 Pulse Ox 98 07/14/24 14:08 BMI result Body Mass Index 18.5 Tobacco/Smoking Status: Tobacco use Status Tobacco use date assessed 07/14/24 07/14/24 14:15 Patient Tobacco Use Status Never used Tobacco 07/14/24 14:15 e-Cigarette/Vaping Use Never Used 07/14/24 14:15 Thrive Assessment: Date of Thrive Assessment Date Thrive assessed 07/14/24 07/14/24 14:15 Currently or been in a relationship where the following occur: No concerns reported Const General: no acute distress HENMT Ears: TM's normal bilaterally Face and sinus: Yes normal facial exam Throat: Yes posterior oropharynx normal Eyes General: appearance normal, both eyes and all related structures Neck Neck: Yes no lymphadenopathy and Yes supple Resp Effort & Inspection: normal respiratory effort Auscultation: clear to auscultation bilaterally Cardio Rhythm: regular rhythm Heart sounds: S1 normal heart sound present and S2 normal heart sound present GI Inspection: Yes normal to inspection Palpation (GI): Soft to palpation Percussion: Yes normal to percussion Auscultation: normal bowel sounds Coding Level of Care Code Est Pt Prev Care 40-64y(10627) Diagnoses Age-related osteoporosis without current pathological fracture M81.0 Osteoporosis type: age-related Presence of current pathological fracture: without current pathological fracture Annual physical exam Z00.00 Vitamin D deficiency E55.9 Rheumatoid arthritis involving multiple sites with positive rheumatoid factor M05.79 Rheumatoid arthritis location: multiple sites Rheumatoid factor presence: with rheumatoid factor Assessment & Plan Assessment & Plan (1) Osteoporosis: Comment: Dexa 07/2022: T-score -3.9 in the femur. Potential medication options discussed with patient July 2022, reviewed again August 2022, patient declines to start treatment for osteoporosis at this time due to tooth abscess Code(s): M81.0 - Age-related osteoporosis without current pathological fracture Category: Medical Qualifiers: Osteoporosis type: age-related Presence of current pathological fracture: without current pathological fracture Qualified Code(s): M81.0 - Age- related osteoporosis without current pathological fracture Plan: Patient declined treatment with Fosamax but it is interesting in seeing specialist in osteoporosis. DEXA will be rechecked and patient is referred to Dr. Radha Saeed (2) Annual physical exam: Code(s): Z00.00 - Encounter for general adult medical examination without abnormal findings Category: Medical Plan: Well-balanced diet regular physical activity discussed with the patient. She is up-to-date with colonoscopy Pap smear about 4 years ago and mammogram will be scheduled (3) Vitamin D deficiency: Code(s): E55.9 - Vitamin D deficiency, unspecified Category: Medical Plan: Continue vitamin-D supplement check the level (4) Rheumatoid arthritis: Comment: ++RF +++CCP Methotrexate-12/2020-01/2021- hair loss Plaquenil -03/2021 to present (eye exam 05/07/2021, 10/31/22, 04/2023) Prednisone- 05/2021 to July 2022 Code(s): M06.9 - Rheumatoid arthritis, unspecified Category: Medical Qualifiers: Rheumatoid arthritis location: multiple sites Rheumatoid factor presence: with rheumatoid factor Qualified Code(s): M05.79 - Rheumatoid arthritis with rheumatoid factor of multiple sites without organ or systems involvement Plan: Currently on Plaquenil. 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 Panel Fast Today E55.9 - Vitamin D deficiency, unspecified, Z00.00 - Encounter for general adult medical examination without abnormal findings Complete Blood Count Auto Diff Today E55.9 - Vitamin D deficiency, unspecified, Z00.00 - Encounter for general adult medical examination without abnormal findings Lipid Panel Today E55.9 - Vitamin D deficiency, unspecified, Z00.00 - Encounter for general adult medical examination without abnormal findings TSH reflex Free T4 Today E55.9 - Vitamin D deficiency, unspecified, Z00.00 - Encounter for general adult medical examination without abnormal findings Referrals Endocrinology Referral M81.0 - Age-related osteoporosis without current pathological fracture Medications: New escitalopram oxalate 5 mg PO DAILY 90 tabs 0RF diazepam (Valium) 1 hr before flight 2 mg PO ONCE 2 tabs 0RF Discontinued lorazepam Discontinued Reason: Doctor's Order 0.5 mg PO DAILY 8 days PRN 4 tabs 0RF anxiety
--- OUTSIDE RECORDS SUMMARY | 2024-07-14 14:56 | XMS_ITS | Clinical Summary ---
Author Organization 175 [facility] Address 175 [place] [address] Phone Care Team Providers Care Technical Administrator Name Role Phone Laura Cortez MD Primary Care Provider [phone] Social History Tobacco Use Types Packs/Day Years Used Date Smoking Tobacco: Never Assessed Comments Unknown Sex and Gender Information Value Date Recorded Sex Assigned at Not on file Legal Sex Female 10:11 AM EST Gender Identity Not on file Sexual Orientation Not on file Plan of Treatment Upcoming Encounters Date Type Department Care Team ([facility] Contact Info) Description 08/03/2024 8:30 AM EDT Office Visit Orthopedic Surgery - [place] [address] [phone] Leighton Castañeda, DPOlu [address] [address] Health Maintenance Due Date Last Done Comments Breast Cancer Screening 1965 DTaP,Tdap,and Td Vaccines (1 - Tdap) 1985 Hepatitis B Vaccines (1 of 3 - 19+ 3-dose series) 1985 Cervical Cancer Screening: P ap Smear 08/18/1987 Pneumococcal Vaccine: 50+ Ye ars (1 of 1 - PCV) 2016 Zoster Vaccines (1 of 2) 2016 COVID-19 Vaccine ( - 2023-2 5 season) 2024 Influenza Vaccine (#1) 2024 Colorectal Cancer Screening: Colonoscopy 06/28/2024 Depression Screening 06/28/2024 HIV Screening 06/28/2024 Hepatitis C Screening 06/28/2024 Social Influencers of Health Screening 06/28/2024 HIB Vaccines Aged Out No longer eligi ble based on patient's age to complete this topic HPV Vaccines Aged Out No longer eligi ble based on patient's age to complete this topic Hepatitis A Vaccines Aged Out No long er eligible based on patient's age to complete this topic IPV Vaccines Aged Out No longer eligi ble based on patient's age to complete this topic MMR Vaccines Aged Out No longer eligi ble based on patient's age to complete this topic Meningococcal ACWY Vaccine Aged Out N o longer eligible based on patient's age to complete this topic Meningococcal B Vacine Aged Out No lo nger eligible based on patient's age to complete this topic Pneumococcal Vaccine: Pediat rics (0 to 5 Years) and At-Risk Patients (6 to 64 Years) Aged Out No longer eligible b ased on patient's age to complete this topic RSV Immunization Patients Un charlee 20 months Aged Out No longer eligible b ased on patient's age to complete this topic Varicella Vaccines Aged Out No longer eligible based on patient's age to complete this topic Insurance [facility] Care Teams Technical Administrator Relationship Specialty Start Date End Date Laura Cortez MD [address] [place] [phone] PCP - General Internal Medicine 06/28/24
== END 2024-07-14 15:35 | disposition home or self-care (01) ==
PROVIDERS: PCP Internal Medicine; Visit Provider Internal Medicine
DX: M81.0 Age-related osteoporosis without current pathological fracture (principal); Z00.00 Encounter for general adult medical examination without abnormal findings; E55.9 Vitamin D deficiency, unspecified; M05.79 Rheumatoid arthritis with rheumatoid factor of multiple sites without organ or systems involvement

== ENCOUNTER → 2024-07-14 13:52 | Outpatient (BNVA) | payer OTHER, SELFPAY | PROVIDERS: PCP Internal Medicine; Visit Provider Internal Medicine | DX: Z00.00 Encounter for general adult medical examination without abnormal findings (principal); M81.0 Age-related osteoporosis without current pathological fracture; E55.9 Vitamin D deficiency, unspecified; M05.79 Rheumatoid arthritis with rheumatoid factor of multiple sites without organ or systems involvement | CPT/HCPCS: 99396 ==

== ENCOUNTER 2024-08-30 14:18 | Outpatient (REF) | payer OTHER, SELFPAY ==
--- NOTE | ~2024-08-30 | MM_ITS ---
EXAMINATION: DXA BONE DENSITY AXIAL HISTORY: Estrogen deficiency TECHNIQUE: [employer] Dual energy absorptiometry (DEXA) of the lumbar spine, total left hip, and femoral neck was performed. COMPARISON: Comparison is made with the prior examination dated 08/14/2022. FINDINGS: The bone mineral density of the lumbar spine is 0.762 with a T-score of -3.5, and a Z-score of -2.3. This is indicative of osteoporosis. This represents a BMD change of -0.5% compared to the prior exam. This is not statistically significant. The bone mineral density of the left total hip is 0.642 with a T-score of -2.9, and a Z-score of -2.0. This is indicative of osteoporosis. This represents a BMD change of 25.4% compared to the prior exam. This is statistically significant. The bone mineral density of the left femoral neck is 0.659 with a T-score of -2.7, and a Z-score of -1.5. This is indicative of osteoporosis. This represents a BMD change of 27.0% compared to the prior exam. MM/XR DEXA axial skeleton IMPRESSION: Based on bone mineral density, and according to World Health Organization (WHO) criteria, the diagnosis is consistent with osteoporosis. All bone density values are in grams per centimeter squared (g/cm2). Statistically, 68% of repeat scans fall within 1 SD (+/- 0.010 g/cm2 for AP spine L1-L4) and 1 SD (+/- 0.012 g/cm2 for femur total) FRAX is a trademark of the [employer] [employer] Metabolic Bone Disease, a World Health Organization (WHO) Collaborating Center. Electronically signed by: Jace Jett MD 08/30/2024 03:37 PM EDT
--- OUTSIDE RECORDS SUMMARY | 2024-08-30 17:26 | XMS_ITS | Clinical Summary ---
Author Organization 175 [facility] Address [address] [place] [address] Phone Care Team Providers Care Shot Polisher And Inspector Name Role Phone Laura Cortez MD Primary Care Provider [phone] Medications No known medications Encounters Date Type Department Care Team Description 08/03/2024 8:30 AM EDT Office Visit Orthopedic Surgery [facility] [address] [phone] Leighton Castañeda DPM Pain in toes of both feet (Primary Dx); Hammertoes of both feet; Dermatophytosis, nail from Last 3 Months Social History Tobacco Use Types Packs/Day Years Used Date Smoking Tobacco: Never Assessed Comments Unknown Sex and Gender Information Value Date Recorded Sex Assigned at Not on file Legal Sex Female 10:11 AM EST Gender Identity Not on file Sexual Orientation Not on file Last Filed Vital Signs Vital Sign Reading Time Taken Comments Blood Pressure - - Pulse - - Temperature - - Respiratory Rate - - Oxygen Saturation - - Inhaled Oxygen Concentration - - Weight 65.8 kg (145 lb) 08/03/2024 8:33 AM EDT Height 167.6 cm (5' 6 ) 08/03/2024 8:33 AM EDT Body Mass Index 23.4 08/03/2024 8:33 AM EDT Plan of Treatment Upcoming Encounters Date Type Department Care Team ([facility] st Contact Info) Description 10/20/2024 8:45 AM EDT Office Visit Orthopedic [facility] [address] [phone] Leighton Castañeda DPM 175 [facility] [address] [place] [address] Health Maintenance Due Date Last Done Comments Breast Cancer Screening 1965 DTaP,Tdap,and Td Vaccines (1 - Tdap) 1985 Hepatitis B Vaccines (1 of 3 - 19+ 3-dose series) 1985 Cervical Cancer Screening: P ap Smear 08/18/1987 Pneumococcal Vaccine: 50+ Ye ars (1 of 1 - PCV) 2016 Zoster Vaccines (1 of 2) 2016 COVID-19 Vaccine ( - 2023-2 5 season) 2024 Colorectal Cancer Screening: Colonoscopy 06/28/2024 Depression Screening 06/28/2024 HIV Screening 06/28/2024 Hepatitis C Screening 06/28/2024 Social Influencers of Health Screening 06/28/2024 Influenza Vaccine (Season Ended) 2025 HIB Vaccines Aged Out No longer eligi [...] age to complete this topic Meningococcal B Vaccine Aged Out No l onger eligible based on patient's age to complete [...] patient's age to complete this topic Insurance [facility] Care Teams Shot Polisher And Inspector Relationship Specialty Start Date End Date Laura Cortez MD [address] [place] [phone] PCP - General Internal Medicine 06/28/24
== END 2024-08-30 14:19 | disposition home or self-care (01) ==
LOC: HO.MAMMO 14:18
PROVIDERS: PCP Internal Medicine; Visit Provider Internal Medicine
DX: Z12.31 Encounter for screening mammogram for malignant neoplasm of breast (principal); M81.0 Age-related osteoporosis without current pathological fracture
CPT/HCPCS: 77063; 77067; 77080

== ENCOUNTER → 2024-08-30 14:30 | Outpatient (BNV) | payer OTHER, SELFPAY | PROVIDERS: PCP Internal Medicine; Visit Provider Radiology Diagnostic Radiology | DX: E28.39 Other primary ovarian failure (principal) | CPT/HCPCS: 77080 ==

== ENCOUNTER 2024-09-15 09:16 | Outpatient (REF) | payer OTHER, SELFPAY ==
--- OUTSIDE RECORDS SUMMARY | 2024-09-15 10:03 | XMS_ITS | Clinical Summary ---
Author Organization 175 [facility] Address [address] [place] [address] Phone Care Team Providers Care Channel Supervisor Name Role Phone Laura Cortez MD Primary Care Provider [phone] Medications No known medications Encounters Date Type Department Care Team Description 08/03/2024 8:30 AM EDT Office Visit Orthopedic Surgery [facility] [address] [phone] Leighton Castañeda DPM Pain in toes of [...] Upcoming Encounters Date Type Department Care Team ([facility] st Contact Info) Description 10/20/2024 8:45 AM EDT Office Visit Orthopedic [facility] [address] [phone] Leighton Castañeda DPM 175 [facility] [address] [place] [address] Health Maintenance Due Date Last Done Comments [...] patient's age to complete this topic Insurance [facility] Care Teams Channel Supervisor Relationship Specialty Start Date End Date Laura Cortez MD [address] [place] [phone] PCP - General Internal Medicine 06/28/24
[2024-09-15 11:10] LABS: MANUAL DIFF FLAG NO
[2024-09-15 11:13] LABS: Basophils Absolute Auto 0.1 X10*3/uL (0.0-0.2); Eosinophils Absolute Auto 0.2 X10*3/uL (0.0-0.4); Eosinophils Percent Auto 2.9 % (0-4); Hematocrit 36.7 % (37.0-47.0); Imm Gran Abs Auto 0.02 X10*3/uL (0.00-0.03); Imm Gran Pct Auto 0.3 % (0.0-0.4); Lymphocytes Absolute Auto 1.5 X10*3/uL (1.2-4.9); Lymphocytes Percent Auto 24.2 % (20-40); Mean Corpuscular HGB Conc 32.7 g/dl (31.0-35.0); Mean Corpuscular Hemoglobin 28.4 pg (27.0-33.0); Mean Platelet Volume 10.1 fL (9.4-12.3); Monocytes Absolute Auto 0.6 X10*3/uL (0.1-1.2); Monocytes Percent Auto 9.3 % (2-11); Neutrophils Absolute Auto 3.8 x10*3/uL (2.0-8.3); Neutrophils Percent Auto 62.3 % (45-73); Platelet Count 248 X10*3/uL (160-400); Red Blood Count 4.22 X10*6/uL (4.20-5.50); Red Cell Distribution Width 13.1 % (11.0-16.0); White Blood Count 6.2 X10*3/uL (4.8-10.8)
[2024-09-15 12:09] LABS: Alanine Aminotransferase 26 U/L (0-31); Albumin Level 3.7 g/dL (3.5-5.0); Alkaline Phosphatase 103 U/L (39-117); Anion Gap 8 (12-20); Aspartate Amino Transferase 30 U/L (5-31); Bilirubin Total 0.3 mg/dL (0.0-1.0); Blood Urea Nitrogen 10 mg/dL (9-16); C Reactive Protein 0.19 mg/dL (< or = 0.50); Calcium 8.8 mg/dL (8.4-10.2); Carbon Dioxide 29 mmol/L (22-29); Chloride 104 mmol/L (96-108); Cholesterol 201 mg/dL (<200); Estimated Glomerular Filt Rate > 60; Glucose Fasting 75 mg/dL (60-99); HDL Cholesterol 50 mg/dL (>40); LDL Cholesterol Calculated 139 mg/dL (<100); Potassium 3.5 mmol/L (3.3-5.1); Sodium 137 mmol/L (135-145); Triglycerides 63 mg/dL (<150)
[2024-09-15 12:14] LABS: Vitamin D 25-OH Total 31.6 ng/mL (>30)
== END 2024-09-15 09:17 | disposition home or self-care (01) ==
LOC: HO.10HDL 09:16
PROVIDERS: Visit Provider Internal Medicine
DX: Z00.00 Encounter for general adult medical examination without abnormal findings (principal); M81.0 Age-related osteoporosis without current pathological fracture; E55.9 Vitamin D deficiency, unspecified; Z79.899 Other long term (current) drug therapy; M06.9 Rheumatoid arthritis, unspecified
CPT/HCPCS: 36415; 80053; 80061; 82306; 84443; 85025; 86140

== ENCOUNTER 2024-10-19 15:02 | Outpatient (AMB) | payer OTHER, SELFPAY ==
[2024-10-19 15:04] VITALS: BP 110/64; PULSE 66; O2SAT 98; BMI 18.6
--- NOTE | 2024-10-19 15:04 | MHC.OFFVIS ---
Vital Signs 10/19/24 15:04 Height 5 ft 7 in Weight 118 lb 13.266 oz BMI 18.6 BP 110/64 Blood Pressure Location Lt brachial Position Sitting Pulse 66 Pulse Source Pulse Oximeter Pulse Oximetry (%) 98 Oxygen Delivery Method Room Air Intake Visit Reasons: RA Intake Note: Patient presents for follow up on RA and lab review. Allergies hazelnut Allergy (Intermediate, Verified 10/19/24 15:07) tongue swelling cat dander Allergy (Mild, Verified 10/19/24 15:07) sneezing pineapple Allergy (Verified 10/19/24 15:07) itchy throat Beef Containing Products Adverse Reaction (Verified 10/19/24 15:07) bloating joshua Adverse Reaction (Verified 10/19/24 15:07) bloating zucchini Adverse Reaction (Uncoded 10/19/24 15:07) bloating Medication List - Last Reconciled 10/19/24 by Cheryl Gan MD biotin 300 mcg PO DAILY cholecalciferol (vitamin D3) 10 mcg PO DAILY escitalopram oxalate 5 mg PO DAILY hydroxychloroquine 300 mg (1.5 x 200 mg) PO DAILY 90 days Lactobacillus acidophilus (Probiotic) 10,000 mmu cells PO DAILY magnesium 150 mg PO DAILY selenium 200 mcg PO DAILY vitamin B complex 1 cap PO DAILY HPI Comments Details: Patient is a 59-year-old female with anxiety, osteoporosis and seropositive rheumatoid arthritis here today for follow up Interval History: Patient last seen 10/12/[address] Blake. At that time she was following up for her seropositive rheumatoid arthritis and osteoporosis. She was on Plaquenil monotherapy however exam showed significant synovitis and so leflunomide was added to her regimen. Patient was supposed to follow up in 12 weeks however did not follow up at that time Patient's 17 year old daughter 6 months ago from a brain tumor, and so she was consumed with her care because she had recurrence of her cancer. Currently on hydroxychloroquine and low dose naltrexone which she was prescribed by her primary Not currently on arava did not feel like it helped much Rheumatologic History: ++RF +++CCP Methotrexate-12/2020-01/2021- hair loss Plaquenil -03/2021 to present (eye exam 05/07/2021, 10/31/22, 04/2023) Prednisone- 05/2021 to July 2022 Current Rheumatology Medication(s): Leflunomide 20 mg daily (not taking) Hydroxychloroquine 200 mg daily PFSH Medical History Annual physical exam Adrenal nodule Lung nodule seen on imaging study Normal pelvic exam Hx of cataract Hx of deep venous thrombosis Takes dietary supplements Vitamin D deficiency Factor V deficiency, congenital Rheumatoid arthritis Onychomycosis Anxiety Surgical History (Updated 07/14/24 @ 15:16 by Laura Cortez MD) Hx of colonoscopy History of uterine fibroid History of unilateral fallopian tube excision History of section Family History Father Kidney disease Heart disease Mother Heart disease CVD (cardiovascular disease) Mental health disorder Substance use disorder Paternal Aunt Breast cancer Brother Substance use disorder Social History Housing: House Alcohol intake: current Alcohol intake frequency: holidays/special occasions only Alcohol type: beer and wine Patient Tobacco Use Status: Never used Tobacco e-Cigarette/Vaping Use: Never Used Current occupational status: employed and unemployed 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 Cognitive needs: No Hearing needs: No Vision needs: No Review of Systems Const Details: Review of Systems Constitutional: Denies fever, chills, weight loss ENT: Denies vision changes, eye pain or eye redness, dental caries, dry mouth GI: Denies nausea, vomiting, diarrhea, abdominal pain, change in BM Pulm: Denies SOB, MCGREGOR, hemoptysis, wheezing Cards: Denies chest pain, palpitations Skin: Denies Raynaud's, rash, nail changes, photosensitivity, ORDER PULLER: Denies headaches, weakness, paresthesias, recurrent falls MSK: as per HPI All other systems reviewed and are unremarkable except noted above Physical Exam Vital Signs: BMI result Body Mass Index 18.6 Vital signs reviewed Physical Examination CONSTITUITIONAL Patient alert and cooperative. Well appearing and in no apparent painful distress HEENT Conjunctiva and sclera clear. ?Pupils equal round and reactive to light. ?No lymphadenopathy. ? CHEST/RESPIRATORY SYSTEM Normal respiratory effort and able to speak in complete sentences. ?Clear to auscultation bilaterally. ?No crackles, rales, rhonchi, wheezes heard. CARDIAC SYSTEM Regular rate and rhythm. ?S1 and S2 heard no murmurs. ?Radial pulses intact bilaterally MSK Hands: ?Able to make a fist. Significant swelling and TTP of the MCPs bilaterally 2-5 Wrists: ?Full range of motion at the wrists. Mild swelling and TTP of bilateral wrists Elbows: Full range of motion without pain. No tenderness, weakness, swelling, increased warmth or erythema. Shoulders: Full range of active range of motion without pain. No tenderness, weakness, swelling, increased warmth or erythema. Knees: ?Full range of motion. ?No tenderness, swelling, increased warmth or erythema.?No effusion or crepitations Ankles: Full range of motion. ?No tenderness, swelling, increased warmth or erythema.? Feet: ?Negative squeeze test. ?No tenderness to palpation or swelling of the MTPs. Tender points:?No tenderness to palpation of the bilateral trapezius, supraspinatus, greater trochanters, anterior costochondral junctions, bilateral gluteal areas, bilateral suboccipital muscle insertions SKIN Skin intact without rashes. Results Reviewed Results Reviewed: Laboratory Tests 09/17/23 09/15/24 11:29 09:20 WBC 6.2 RBC 4.22 Hgb 12.0 Hct 36.7 L Plt Count 248 ESR 19 Sodium 137 Potassium 3.5 Chloride 104 Carbon Dioxide 29 BUN 10 Creatinine 0.61 AST 30 ALT 26 Alkaline Phosphatase 103 C-Reactive Protein 0.19 25-OH Vitamin D Total 31.6 Laboratory Tests 08/10/20 10/24/20 17:12 13:15 Rheumatoid Factor 76.6 H Cycl Citrul Peptide IgG >250 H DEXA 08/2024 FINDINGS: The bone mineral density of the lumbar spine is 0.762 with a T-score of -3.5, and a Z-score of -2.3. This is indicative of osteoporosis. This represents a BMD change of -0.5% compared to the prior exam. This is not statistically significant. The bone mineral density of the left total hip is 0.642 with a T-score of -2.9, and a Z-score of -2.0. This is indicative of osteoporosis. This represents a BMD change of 25.4% compared to the prior exam. This is statistically significant. The bone mineral density of the left femoral neck is 0.659 with a T-score of -2.7, and a Z-score of -1.5. This is indicative of osteoporosis. This represents a BMD change of 27.0% compared to the prior exam. Assessment & Plan Assessment & Plan (1) Rheumatoid arthritis: Comment: ++RF +++CCP Methotrexate-12/2020-01/2021- hair loss Plaquenil -03/2021 to present (eye exam 05/07/2021, 10/31/22, 04/2023) Prednisone- 05/2021 to July 2022 Code(s): M06.9 - Rheumatoid arthritis, unspecified Category: Medical Qualifiers: Rheumatoid arthritis location: multiple sites Rheumatoid factor presence: with rheumatoid factor Qualified Code(s): M05.79 - Rheumatoid arthritis with rheumatoid factor of multiple sites without organ or systems involvement Plan: #RA Patient is a 59-year-old female with seropositive rheumatoid arthritis here today for follow up. Lost to follow up with the past year due to her daughter having a relapse of cancer and subsequently passing away 6 months ago. She has been going through a lot of emotional stress and as such her health had taken a back burner. She wants to try a more holistic approach to the management of her rheumatoid arthritis. Even though her exam shows significant synovitis involving her MCPs her inflammatory markers are normal. I think we should check x-rays of her hands to evaluate for erosions. She can continue hydroxychloroquine for now. We will follow closely every 3 months to make a determination about further immunosuppression. Plan - Stop leflunomide - Hydroxychloroquine 300mg daily - XR hands and wrists, bilateral - RTC 3 months - Labs before visit: CBC, CMP, ESR, CRP (2) Osteoporosis: Comment: DEXA 07/2022: AP Spine -3.5, Left femur neck -3.7, Left femur total -3.9 Potential medication options discussed with patient July 2022, reviewed again August 2022, patient declines to start treatment for osteoporosis due to tooth abscess DEXA 08/2024: AP Spine -3.5, Left femur neck -2.7, Left femur total -2.9 Code(s): M81.0 - Age-related osteoporosis without current pathological fracture Category: Medical Qualifiers: Osteoporosis type: age-related Presence of current pathological fracture: without current pathological fracture Qualified Code(s): M81.0 - Age-related osteoporosis without current pathological fracture Plan: #Osteoporosis Patient with osteoporosis, not currently on any bone strengthening agents due to concern for side effects Repeat DEXA 08/2024 showed 27% improvement in her hip bone density. Spine bone density remained the same Patient wishes to continue monitoring off medication Plan - Encourage weight bearing exercises - Vitamin D supplementation (3) Long-term use of hydroxychloroquine: Code(s): Z79.899 - Other terminal computer operator (current) drug therapy Category: Medical Plan: #Long-term Use of Hydroxychloroquine Discussed with patient the risks and benefits of hydroxychloroquine in managing the rheumatic condition Benefits include: - Reduced pain, reduce mortality, maintenance of remission and reduction of flares Risks include: - GI upset, skin hyperpigmentation, retinal toxicity (especially after more than 5 years of use), myopathy Advised yearly ophthalmology visits Plan I spent 33 minutes reviewing the record and labs, taking a history, examining the patient, discussing the treatment plan, ordering diagnostic work up and documenting in the medical record Orders: Orders Comprehensive Met. Panel 3 Months M05.79 - Rheumatoid arthritis with rheumatoid factor of multiple sites without organ or systems involvement XR hand LT min 3V Today M05.79 - Rheumatoid arthritis with rheumatoid factor of multiple sites without organ or systems involvement XR hand RT min 3V Today M05.79 - Rheumatoid arthritis with rheumatoid factor of multiple sites without organ or systems involvement XR wrist LT min 3V Today M05.79 - Rheumatoid arthritis with rheumatoid factor of multiple sites without organ or systems involvement XR wrist RT min 3V Today M05.79 - Rheumatoid arthritis with rheumatoid factor of multiple sites without organ or systems involvement Complete Blood Count Auto Diff 3 Months M05.79 - Rheumatoid arthritis with rheumatoid factor of multiple sites without organ or systems involvement C Reactive Protein 3 Months M05.79 - Rheumatoid arthritis with rheumatoid factor of multiple sites without organ or systems involvement Erythrocyte Sedimentation Rate 3 Months M05.79 - Rheumatoid arthritis with rheumatoid factor of multiple sites without organ or systems involvement Coding Level of Care Code Est Pt Level 4 (54226) Complex EM visit Add On G2211 Diagnoses Rheumatoid arthritis involving multiple sites with positive rheumatoid factor 5. Rheumatoid arthritis location: multiple sites Rheumatoid factor presence: with rheumatoid factor Age-related osteoporosis without current pathological fracture M81.0 Osteoporosis type: age-related Presence of current pathological fracture: without current pathological fracture Long-term use of hydroxychloroquine Z79.899
--- OUTSIDE RECORDS SUMMARY | 2024-10-19 15:46 | XMS_ITS | Clinical Summary ---
Author Organization [facility] Address [address] [place] [address] Phone Care Team Providers Care Dental Officer Name Role Phone Laura Cortez MD Primary Care Provider [phone] Medications No known medications Encounters Date Type Department Care Team Description 08/03/2024 8:30 AM EDT Office Visit Orthopedic Surgery [facility] [address] [phone] Leighton Castañeda DPM Pain in toes of [...] Upcoming Encounters Date Type Department Care Team ([facility] st Contact Info) Description 10/20/2024 8:45 AM EDT Office Visit [facility] [address] [phone] Leighton Castañeda DPM 175 [facility] [address] [place] [address] Health Maintenance Due Date Last Done Comments [...] patient's age to complete this topic Insurance [facility] Care Teams Dental Officer Relationship Specialty Start Date End Date Laura Cortez MD [address] [place] [address] PCP - General Internal Medicine 06/28/24
== END 2024-10-19 15:49 | disposition home or self-care (01) ==
LOC: HO.RHE 15:02
PROVIDERS: PCP Internal Medicine; Visit Provider Student in an Organized Health Care Education/Training Program
DX: M05.79 Rheumatoid arthritis with rheumatoid factor of multiple sites without organ or systems involvement (principal); M81.0 Age-related osteoporosis without current pathological fracture; Z79.899 Other long term (current) drug therapy
CPT/HCPCS: 99214; G2211

== ENCOUNTER → 2024-10-19 15:02 | Outpatient (BNVA) | payer OTHER, SELFPAY | PROVIDERS: PCP Internal Medicine; Visit Provider Student in an Organized Health Care Education/Training Program | DX: M81.0 Age-related osteoporosis without current pathological fracture (principal); M05.79 Rheumatoid arthritis with rheumatoid factor of multiple sites without organ or systems involvement; Z79.899 Other long term (current) drug therapy | CPT/HCPCS: 99212 ==

== ENCOUNTER 2024-12-16 08:03 | Outpatient (AMB) | payer OTHER, SELFPAY ==
--- OUTSIDE RECORDS SUMMARY | 2024-12-16 08:05 | XMS_ITS | Clinical Summary ---
Author Organization [address] [facility] Address [address] [place] [address] Phone Care Team Providers Care Hoisting Machine Operator Name Role Phone Laura oCrtez MD Primary Care Provider [phone] Allergies No known active allergies Medications No known medications Encounters Date Type Department Care Team Description 10/20/2024 8:45 AM EDT Office Visit Orthopedic Surgery [facility] [address] [facility] [address] [place] [address] Leighton Castañeda, DPM Hammertoes of both feet (Primary Dx); Pain in toes of both feet; Onychogryphosis; Plantar wart from Last 3 Months Social History Tobacco [...] - - Weight 65.8 kg (145 lb) 10/20/2024 8:59 AM EDT Height 167.6 cm (5' 5.98 ) 10/20/2024 8:59 AM ED T Body Mass Index 23.41 10/20/2024 8:59 AM EDT Plan of Treatment Health Maintenance Due Date Last Done Comments Breast Cancer Screening 1966 DTaP,Tdap,and Td Vaccines (1 - Tdap) 1985 Hepatitis B Vaccines (1 of 3 - 19+ 3-dose series) 1985 Cervical Cancer Screening: P ap Smear 08/18/1987 Pneumococcal Vaccine: 50+ Ye ars (1 of 1 - PCV) 2016 Zoster Vaccines (1 of 2) 2016 COVID-19 Vaccine (1 - 2023-2 5 season) 2024 Depression Screening 05/25/2024 Colorectal Cancer Screening: Colonoscopy 06/28/2024 HIV Screening 06/28/2024 Hepatitis C Screening 06/28/2024 Social Influencers of Health Screening 06/28/2024 Influenza Vaccine (#1) 2025 HIB Vaccines Aged Out No longer [...] this topic Insurance [facility] Care Teams Hoisting Machine Operator Relationship Specialty Start Date End Date Laura Cortez MD [address] [place] [address] PCP - General Internal Medicine 06/28/24
--- OUTSIDE RECORDS SUMMARY | 2024-12-16 08:05 | XMS_ITS | Encounter Summary ---
Author Organization [facility] Address [address] [facility] [address] [place] [phone] Phone Care Team Providers Care Auto Clutch Specialist Name Role Phone Laura Cortez MD Primary Care Provider [phone] Encounter Details Date Type Department Care Team (Late st Contact Info) Description 09/23/2021 Transcribe Orders Virtual Department [address] [place] [address] Laura Cortez MD [address] [facility] [place] [address] Solitary pulmonary nodule (Primary Dx); Other specified disorders of adrenal gland Social History Tobacco Use Types Packs/Day Years Used Date Smoking Tobacco: Never Assessed Comments Unknown Sex and Gender Information Value Date Recorded Sex Assigned at Female 12/12/2019 4:12 PM EDT Legal Sex Female 4:05 PM EDT Gender Identity Female 12/12/2019 4:12 PM EDT Sexual Orientation Straight 12/12/2019 4: 12 PM EDT documented as of this encounter Plan of Treatment Not on file documented as of this encounter Visit Diagnoses Diagnosis Solitary pulmonary nodule- Primary Other specified disorders of adrenal gland documented in this encounter Care Teams Auto Clutch Specialist Relationship Specialty Start Date End Date Laura Cortez MD [address] [facility] [place] [address] PCP - General Internal Medicine 12/12/19 documented as of this encounter Additional Source Comments The information contained in this document represents components of the legal health record. It is not the complete legal health record.[facility]
--- NOTE | 2024-12-16 08:39 | MHC.OFFWIV ---
Intake Vital Signs 12/16/24 08:40 Height 5 ft 7 in Weight 123 lb BMI 19.3 BP 120/30 L Blood Pressure Location Lt brachial Position Sitting Pulse 62 Pulse Source Pulse Oximeter Temp 98.4 F Temp Source Oral Pulse Oximetry (%) 98 Intake Visit Reasons: EP RT ear blocked Patient Tobacco Use Status: Never used Tobacco Volunteer Fire Fighter Required: No Is last menstrual period known: No Post menopausal: Yes Patient : No Allergies hazelnut Allergy (Intermediate, Verified 12/16/24 08:45) tongue swelling cat dander Allergy (Mild, Verified 12/16/24 08:45) sneezing pineapple Allergy (Verified 12/16/24 08:45) itchy throat Beef Containing Products Adverse Reaction (Verified 12/16/24 08:45) bloating joshua Adverse Reaction (Verified 12/16/24 08:45) bloating zucchini Adverse Reaction (Uncoded 10/19/24 15:07) bloating Do you need a note to return to daycare/school/sports/work: No HPI HPI Comments History of Present Illness Details History - The patient is a 59-year-old female presenting with hearing loss due to impacted cerumen in the right ear. - The hearing loss in the right ear began worsening approximately three weeks ago. - The patient reports speaking louder than usual due to the hearing impairment. - There is no associated pain or drainage from the ear. - The patient has a history of requiring frequent ear cleaning due to wax buildup. - Examination revealed brown cerumen obstructing the right ear canal and darker cerumen in the left ear canal. Physical Exam Physical Exam General: Cooperative, healthy appearing, comfortable, no acute distress and well developed Orientation: Patient oriented x3 Limitations: No limitations Head: Normal to inspection Ears: External ears normal bilaterally, TM's with impacted cerumen bilaterally, right ear completely blocked with wax, left ear with a whole bunch of wax Face and sinus: Normal facial exam Neck: Normal visual inspection and Yes full ROM Respiratory: Normal respiratory effort and able to speak in complete sentences. Skin: No rashes or lesions noted Neuro: Patient oriented x3 Extremities: normal to inspection [facility] Medical History Annual physical exam Adrenal nodule Lung nodule seen on imaging study Normal pelvic exam Hx of cataract Hx of deep venous thrombosis Takes dietary supplements Vitamin D deficiency Factor V deficiency, congenital Rheumatoid arthritis Onychomycosis Anxiety Surgical History (Updated 07/14/24 @ 15:16 by Laura Cortez MD) Hx of colonoscopy History of uterine fibroid History of unilateral fallopian tube excision History of section Family History Father Kidney disease Heart disease Mother Heart disease CVD (cardiovascular disease) Mental health disorder Substance use disorder Paternal Aunt Breast cancer Brother Substance use disorder Social History Housing: House Alcohol intake: current Alcohol intake frequency: holidays/special occasions only Alcohol type: beer and wine Patient Tobacco Use Status: Never used Tobacco e-Cigarette/Vaping Use: Never Used Patient : No Current occupational status: employed and unemployed 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 Cognitive needs: No Hearing needs: No Vision needs: No Review of Systems Const All systems reviewed & are unremarkable except as noted in HPI and below Physical Exam Vital Signs: Last Vital Signs Temp 98.4 F 12/16/24 08:40 Pulse 62 12/16/24 08:40 BP 120/30 L 12/16/24 08:40 Pulse Ox 98 12/16/24 08:40 BMI result Body Mass Index 19.3 Office Procedures Cerumen Removal From which ear canal was the cerumen removed: bilateral Removal: irrigation and otoscope w/curette (left side) Notes: patient tolerated procedure well, no complications and ear canal clear (right side clear, left side unable to clear) [id number] Irrigation/Lavage Assessment & Plan Assessment & Plan (1) Impacted cerumen of both ears: Code(s): H61.23 - Impacted cerumen, bilateral Plan: Plan Patient was informed and verbally consented to the use of an ambient scribe for clinic note documentation during this visit. - Plan to perform ear irrigation to remove cerumen. - Caution advised regarding potential dizziness during the procedure. - Can use Debrox drops as preventative. - Right ear clear s/p procedure. - unable to clear left ear, recommended patient use Debrox drops nightly for the next 5 days and return to the clinic for irrigation. Orders: Orders AMB Cerumen Removal Today H61.23 - Impacted cerumen, bilateral Coding Level of Care Code Est Pt Level 3 (21515) Diagnoses Impacted cerumen of both ears H61.23 CPT Codes Office Procedure - CPT: 37915-Yze Irrigation/Lavage ([id number])
[2024-12-16 08:40] VITALS: BP 120/30; PULSE 62; TEMP 36.9; O2SAT 98; BMI 19.3
== END 2024-12-16 11:03 | disposition home or self-care (01) ==
PROVIDERS: PCP Internal Medicine; Visit Provider Physician Assistant
DX: H61.23 Impacted cerumen, bilateral (principal)

== ENCOUNTER → 2024-12-16 08:03 | Outpatient (BNVA) | payer OTHER, SELFPAY | PROVIDERS: PCP Internal Medicine; Visit Provider Physician Assistant | DX: H61.23 Impacted cerumen, bilateral (principal) | CPT/HCPCS: 69210; 99212 ==

== ENCOUNTER 2025-01-16 08:06 | Outpatient (REF) | payer OTHER, SELFPAY ==
[2025-01-16 10:52] LABS: MANUAL DIFF FLAG NO
[2025-01-16 11:02] LABS: Hematocrit 37.9 % (37.0-47.0); Hemoglobin 12.4 g/dl (12.0-16.0); Imm Gran Abs Auto 0.01 X10*3/uL (0.00-0.03); Imm Gran Pct Auto 0.1 % (0.0-0.4); Lymphocytes Absolute Auto 1.6 X10*3/uL (1.2-4.9); Mean Corpuscular HGB Conc 32.7 g/dl (31.0-35.0); Mean Corpuscular Hemoglobin 27.6 pg (27.0-33.0); Mean Corpuscular Volume 84.4 fL (80.0-98.0); NRBC Abs Auto 0.000 X10*3/uL (0.0-0.012); NRBC Pct Auto 0.0 /100WBC (0.0-0.2); Platelet Count 247 X10*3/uL (160-400); Red Blood Count 4.49 X10*6/uL (4.20-5.50); White Blood Count 6.7 X10*3/uL (4.8-10.8)
[2025-01-16 11:12] LABS: Alanine Aminotransferase 48 U/L (0-31); Albumin Level 3.6 g/dL (3.5-5.0); Alkaline Phosphatase 113 U/L (39-117); Anion Gap 11 (12-20); Aspartate Amino Transferase 43 U/L (5-31); Blood Urea Nitrogen 11 mg/dL (9-16); Calcium 8.6 mg/dL (8.4-10.2); Carbon Dioxide 27 mmol/L (22-29); Chloride 106 mmol/L (96-108); Estimated Glomerular Filt Rate > 60; Potassium 3.4 mmol/L (3.3-5.1); Sodium 141 mmol/L (135-145); Total Protein 6.7 g/dL (6.5-8.0)
== END 2025-01-16 08:07 | disposition home or self-care (01) ==
LOC: HO.10HDL 08:06
PROVIDERS: Visit Provider Student in an Organized Health Care Education/Training Program
DX: M05.79 Rheumatoid arthritis with rheumatoid factor of multiple sites without organ or systems involvement (principal)
CPT/HCPCS: 36415; 80053; 85025; 85652; 86140

== ENCOUNTER 2025-03-07 14:53 | Outpatient (AMB) | payer OTHER, SELFPAY ==
--- NOTE | 2025-03-07 14:59 | A.OFFVIS_ITS ---
Vital Signs 03/07/25 15:05 Height 5 ft 7 in Weight 126 lb 5.198 oz BMI 19.8 BP 132/80 Blood Pressure Location Lt brachial Position Sitting Pulse 72 Pulse Source Pulse Oximeter Pulse Oximetry (%) 99 Oxygen Delivery Method Room Air Intake Visit Reasons: f/u RA Intake Note: Patient presents for RA follow up. Allergies hazelnut Allergy (Intermediate, Verified 12/16/24 08:45) tongue swelling cat dander Allergy (Mild, Verified 12/16/24 08:45) sneezing pineapple Allergy (Verified 12/16/24 08:45) itchy throat Beef Containing Products Adverse Reaction (Verified 12/16/24 08:45) bloating joshua Adverse Reaction (Verified 12/16/24 08:45) bloating zucchini Adverse Reaction (Uncoded 10/19/24 15:07) bloating Medication List - Last Reconciled 03/07/25 by Cheryl Gan MD cholecalciferol (vitamin D3) 10 mcg PO DAILY hydroxychloroquine 300 mg (1.5 x 200 mg) PO DAILY 90 days Lactobacillus acidophilus (Probiotic) 10,000 mmu cells PO DAILY magnesium 150 mg PO DAILY vitamin B complex 1 cap PO DAILY HPI Comments Details: Patient is a 59-year-old female with anxiety, osteoporosis and seropositive rheumatoid arthritis here today for follow up Interval History: Patient last seen 10/19/24 with me - On Leflunomide 20mg PO daily and Hydroxychloroquine 200mg daily - Patient's 17 year old daughter 6 months ago from a brain tumor, and so she was consumed with her care because she had recurrence of her cancer. - Currently on hydroxychloroquine and low dose naltrexone which she was prescribed by her primary - Not currently on arava did not feel like it helped much Today - On Hydroxychloroquine 200mg daily - Yesterday was the anniversary of her daughter's , so for the past few week she has been in worsening pain and stress - Also not on LDN, medication ran out - Complaining of significant hand pain and swelling - Elbow pain with difficulty putting her hair in a ponytail Rheumatologic History: ++RF +++CCP Methotrexate-12/2020-01/2021- hair loss Plaquenil -03/2021 to present (eye exam 05/07/2021, 10/31/22, 04/2023) Prednisone- 05/2021 to July 2022 Current Rheumatology Medication(s): Hydroxychloroquine 200 mg daily PFSH Medical History Annual physical exam Adrenal nodule Lung nodule seen on imaging study Normal pelvic exam Hx of cataract Hx of deep venous thrombosis Takes dietary supplements Vitamin D deficiency Factor V deficiency, congenital Rheumatoid arthritis Onychomycosis Anxiety Surgical History Hx of colonoscopy History of uterine fibroid History of unilateral fallopian tube excision History of section Family History Father Kidney disease Heart disease Mother Heart disease CVD (cardiovascular disease) Mental health disorder Substance use disorder Paternal Aunt Breast cancer Brother Substance use disorder Social History Housing: House Alcohol intake: current Alcohol intake frequency: holidays/special occasions only Alcohol type: beer and wine Patient Tobacco Use Status: Never used Tobacco e-Cigarette/Vaping Use: Never Used Current occupational status: employed and unemployed 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 Cognitive needs: No Hearing needs: No Vision needs: No Review of Systems Const Details: Review of Systems Constitutional: Denies fever, chills, weight loss ENT: Denies vision changes, eye pain or eye redness, dental caries, dry mouth GI: Denies nausea, vomiting, diarrhea, abdominal pain, change in BM Pulm: Denies SOB, MCGREGOR, hemoptysis, wheezing Cards: Denies chest pain, palpitations Skin: Denies Raynaud's, rash, nail changes, photosensitivity, RIVET HEATER: Denies headaches, weakness, paresthesias, recurrent falls MSK: as per HPI All other systems reviewed and are unremarkable except noted above Physical Exam Exam Exam: Vital signs reviewed Physical Examination CONSTITUITIONAL Patient alert and cooperative. Well appearing and in no apparent painful distress MSK Hands * Right Hand: Not able to make a fist. Swelling and TTP of the 2nd and 3rd MCPs. TTP of the 2nd and 3rd PIP. Herbedens nodes noted * Left Hand: Not able to make a fist. Swelling and TTP of the 2nd and 3rd MCPs. TTP of the 2nd and 3rd PIP. Herbedens nodes noted Wrists * Right Wrist: Full ROM to flexion and extension. No swelling. TTP * Left Wrist: Full ROM to flexion and extension. No swelling. TTP Elbows * Right Elbow: Decreased ROM to flexion and extension with swelling and TTP. No TTP of the medial epicondyle. No TTP of the lateral epicondyle * Left Elbow: Decreased ROM to flexion and extension with swelling and TTP. No TTP of the medial epicondyle. No TTP of the lateral epicondyle Shoulders * Right shoulder: Decreased ROM up to about 90 degrees. No swelling noted. No TTP of the AC joint. No TTP of the subacromial bursa. No TTP of the posterior shoulder * Left shoulder: Decreased ROM up to about 90 degrees. No swelling noted. No TTP of the AC joint. No TTP of the subacromial bursa. No TTP of the posterior shoulder Knees * Right knee: No swelling noted. TTP of the knee joint line. No TTP of pes anserine bursa * Left knee: No swelling noted. TTP of the knee joint line. No TTP of pes anserine bursa. Ankles * Right ankle: Good ankle dorsiflexion and plantar flexion. No swelling. No TTP of the ankle joint * Left ankle: Good ankle dorsiflexion and plantar flexion. No swelling. No TTP of the ankle joint Feet * Right foot: Negative squeeze test * Left foot: Negative squeeze test Tender points? * No tenderness to palpation of the bilateral trapezius, supraspinatus, anterior costochondral junctions, bilateral suboccipital muscle insertions SKIN No rashes Vital Signs: Last Vital Signs Pulse 72 03/07/25 15:05 BP 132/80 03/07/25 15:05 Pulse Ox 99 03/07/25 15:05 Oxygen Delivery Method Room Air 03/07/25 15:05 BMI result Body Mass Index 19.8 Results Reviewed Results Reviewed: Laboratory Tests 09/15/24 01/16/25 09:20 08:08 WBC 6.7 RBC 4.49 Hgb 12.4 Hct 37.9 Plt Count 247 ESR 20 Sodium 141 Potassium 3.4 Chloride 106 Carbon Dioxide 27 BUN 11 Creatinine 0.58 AST 43 H ALT 48 H C-Reactive Protein 0.27 25-OH Vitamin D Total 31.6 Laboratory Tests 08/10/20 10/24/20 17:12 13:15 Rheumatoid Factor 76.6 H Cycl Citrul Peptide IgG >250 H DEXA 08/2024 FINDINGS: The bone mineral density of the lumbar spine is 0.762 with a T-score of -3.5, and a Z-score of -2.3. This is indicative of osteoporosis. This represents a BMD change of -0.5% compared to the prior exam. This is not statistically significant. The bone mineral density of the left total hip is 0.642 with a T-score of -2.9, and a Z-score of -2.0. This is indicative of osteoporosis. This represents a BMD change of 25.4% compared to the prior exam. This is statistically significant. The bone mineral density of the left femoral neck is 0.659 with a T-score of -2.7, and a Z-score of -1.5. This is indicative of osteoporosis. This represents a BMD change of 27.0% compared to the prior exam. Assessment & Plan Assessment & Plan (1) Rheumatoid arthritis: Comment: ++RF +++CCP Methotrexate-12/2020-01/2021- hair loss Plaquenil -03/2021 to present (eye exam 05/07/2021, 10/31/22, 04/2023) Prednisone- 05/2021 to July 2022 Code(s): M06.9 - Rheumatoid arthritis, unspecified Category: Medical Qualifiers: Rheumatoid arthritis location: multiple sites Rheumatoid factor presence: with rheumatoid factor Qualified Code(s): M05.79 - Rheumatoid arthritis with rheumatoid factor of multiple sites without organ or systems involvement Plan: #RA Patient is a 59-year-old female with seropositive rheumatoid arthritis here today for follow up. In a flare of her disease Likely on a background of stress plus poor RA control Plan - Prtednisone: Take 30mg for 10 days then 20mg for 10 days 15mg for 10 days then 10mg for 10 days then 5mg for 10 days and stop - Hydroxychloroquine 300mg daily - Patient willing to consider biologics but wants to wait - Naltrexone 4.5mg daily PO - RTC 3 months - Labs before visit: CBC, CMP, ESR, CRP (2) Osteoporosis: Comment: DEXA 07/2022: AP Spine -3.5, Left femur neck -3.7, Left femur total -3.9 Potential medication options discussed with patient July 2022, reviewed again August 2022, patient declines to start treatment for osteoporosis due to tooth abscess DEXA 08/2024: AP Spine -3.5, Left femur neck -2.7, Left femur total -2.9 Code(s): M81.0 - Age-related osteoporosis without current pathological fracture Category: Medical Qualifiers: Osteoporosis type: age-related Presence of current pathological fracture: without current pathological fracture Qualified Code(s): M81.0 - Age- related osteoporosis without current pathological fracture Plan: #Osteoporosis Patient with osteoporosis, not currently on any bone strengthening agents due to concern for side effects Repeat DEXA 08/2024 showed 27% improvement in her hip bone density. Spine bone density remained the same Patient wishes to continue monitoring off medication Plan - Encourage weight bearing exercises - Vitamin D supplementation (3) Long-term use of hydroxychloroquine: Code(s): Z79.899 - Other assisted (current) drug therapy Category: Medical Plan: #Long-term Use of Hydroxychloroquine Discussed with patient the risks and benefits of hydroxychloroquine in managing the rheumatic condition Benefits include: - Reduced pain, reduce mortality, maintenance of remission and reduction of flares Risks include: - GI upset, skin hyperpigmentation, retinal toxicity (especially after more than 5 years of use), myopathy Advised yearly ophthalmology visits Plan I spent 33 minutes reviewing the record and labs, taking a history, examining the patient, discussing the treatment plan, ordering diagnostic work up and documenting in the medical record Orders: Orders Complete Blood Count Auto Diff 3 Months Z 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 therapy Hepatitis B,C Profile 3 Months Z. - Other assisted (current) drug therapy Comprehensive Met. Panel 3 Months Z. 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 therapy T Spot TB 3 Months Z79.899 - Other assisted (current) drug therapy Medications: New prednisone Take 3 tablets daily for 10 days (30mg), then 2 tablets daily for 10 days (20mg), then 1.5 tablets daily for 10 days (15mg), then 1 tablet daily for 10 days (10mg), then 0.5mg tablets daily for 10 days (5mg) then stop 10 mg PO DIRECTED 80 tabs 0RF M05.79 - Rheumatoid arthritis with rheumatoid factor of multiple sites without organ or systems involvement naltrexone 4.5 mg PO .daily 90 caps 1RF M79.7 - Fibromyalgia Refilled hydroxychloroquine 300 mg (1.5 x 200 mg) PO DAILY 135 tabs 1RF 90 days M06.9 - Rheumatoid arthritis, unspecified Coding Level of Care Code Est Pt Level 4 (77875) Complex EM visit Add On G2211 Diagnoses Rheumatoid arthritis involving multiple sites with positive rheumatoid factor M05.79 Rheumatoid arthritis location: multiple sites Rheumatoid factor presence: with rheumatoid factor Age-related osteoporosis without current pathological fracture M81.0 Osteoporosis type: age-related Presence of current pathological fracture: without current pathological fracture Long-term use of hydroxychloroquine Z79.899
[2025-03-07 15:05] VITALS: BP 132/80; PULSE 72; O2SAT 99; BMI 19.8
--- OUTSIDE RECORDS SUMMARY | 2025-03-07 17:47 | XMS_ITS | Clinical Summary ---
Author Organization [facility] Address [address] [place] [address] Phone Care Team Providers Care Animal Humane Agent Supervisor Name Role Phone Laura Cortez MD Primary Care Provider [phone] Social History Tobacco Use Types Packs/Day Years Used Date Smoking Tobacco: Never Assessed Education Answer Date Recorded Are you interested in more education? Not on jovanny e 09/19/2022 Are you concerned about learning? Not on file 09/19/2022 No 09/19/2022 No 09/19/2022 Digital Access Answer Date Recorded No 10/21/2022 No 10/21/2022 Reliable internet access at home? Not on file 10/21/2022 Device with a working camera? Not on file Comments Unknown Sex and Gender Information Value Date Recorded Sex Assigned at Female 12/12/2019 4:12 PM EDT Legal Sex Female 4:05 PM EDT Gender Identity Female 12/12/2019 4:12 PM EDT Sexual Orientation Straight 12/12/2019 4: 12 PM EDT Plan of Treatment Health Maintenance Due Date Last Done Comments Adult Td,Tdap Booster 1966 LIPID PANEL 1966 DEPRESSION SCREENING 1978 SMOKING Hx and SMOKELESS TOB ACCO SCREENING 08/18/1979 HEPATITIS C SCREENING 1984 HIV ONE-TIME SCREENING (18-6 5 YEARS) 1984 PAP SMEAR 08/18/1987 MAMMOGRAM 2006 COLOGUARD 08/18/2011 COLONOSCOPY 08/18/2011 COLORECTAL CANCER SCREENING 08/18/2011 FIT TEST 08/18/2011 FOBT 08/18/2011 SIGMOIDOSCOPY 08/18/2011 VIRTUAL COLONOSCOPY 08/18/2011 PNEUMOCOCCAL VACCINES (50+ y ears) (1 of 1 - PCV) 2016 ZOSTER VACCINES (1 of 2) 2016 INFLUENZA VACCINE (#1) 2024 COVID-19 VACCINE (1 - 2024-2 6 season) 2025 RSV VACCINE (1 - 1-dose 75+ series) 2041 HEPATITIS A VACCINES Aged Out No long er eligible based on patient's age to complete this topic HIB VACCINES Aged Out No longer eligi ble based on patient's age to complete this topic MENINGOCOCCAL VACCINES (ACWY) Aged Out No longer eligible based on patient's age to complete this topic MENINGOCOCCAL VACCINES (B) Aged Out N o longer eligible based on patient's age to complete this topic Medical Devices Not on file Insurance [facility] Care Teams Animal Humane Agent Supervisor Relationship Specialty Start Date End Date Laura Cortez MD [address] [place] [address] PCP - General Internal Medicine 12/12/19 Additional Source Comments The information contained in this document represents components of the legal health record. It is not the complete legal health record.[facility]
--- OUTSIDE RECORDS SUMMARY | 2025-03-07 17:47 | XMS_ITS | Encounter Summary ---
Author Organization [facility] Address [address] [facility] [address] [place] [address] Phone Care Team Providers Care Court Attendant Name Role Phone Laura Cortez MD Primary Care Provider [phone] Reason for Referral * MRI/CAT Scan - Closed Specialty Diagnoses / Procedures Referred By Contac t Referred To Contact Radiology Diagnoses Asymptomatic microscopic hematuria Procedures CT Abdomen/Pelvis CHG CT SCAN,ABDOMENT AND PELVIS,COMBO CHG CT SCAN,ABDOMENT AND PELVIS,W CONTRAST Louis Gonzalez MD Phone: tel: fax: [email or web address] Referral ID Status Reason Start Date Expiration Date Visits Re quested Visits Authorized [id number] Closed 07/05/2021 12/31/2021 1 1 Encounter Details Date Type Department Care Team (Latest Contact Info) Description 07/05/2021 Transcribe Orders Virtual Department [address] [place] [address] Louis Gonzalez MD [address] [place] [address], [address] [address] [email or web address] Asymptomatic microscopic hematuria (Primary Dx) Social History Tobacco Use Types Packs/Day Years [...] on file documented as of this encounter Results * CT ABDOMEN/PELVIS WITH CONTRAST (07/25/2021 11:37 AM EST) Anatomical Region Laterality Modality Abdomen, Pelvis Computed Tomogra phy 07/25/2021 12:3 1 PM EST Impressions 07/25/2021 12:41 PM EST Tiny hypodensity in the left kidney suspected to represent a cyst. No other specific etiology of hematuria identified. Small right basilar pulmonary nodule, possibly incidental and postinflammatory. Dedicated chest CT could be considered for exclusion of additional nodules, depending upon the clinical scenario. Equivocal small left adrenal nodule which could be confirmed on subsequent chest CT, if obtained. TOTAL CTDIvol: mGy POS - [id number] Narrative 07/25/2021 12:41 PM EST COMPARISON: None TECHNIQUE: Water is used as an oral contrast agent. Precontrast views are obtained from the kidneys through the inferior pubic rami. Intravenous contrast is then administered and scanning obtained at ninety seconds from the dome of the liver to the inferior pubic rami. Delayed scanning is then obtained from above the kidneys through the inferior pubic rami. Multiplanar reformatted images obtained. Automated exposure control utilized. FINDINGS: No urinary calculi, hydronephrosis, or perinephric stranding present. There is a 2 mm hypodensity in the left upper renal pole which is too small to accurately measure but suspected represent a cyst. No additional cyst or mass noted. No uroendothelial irregularities demonstrated. Bladder is relatively collapsed without intravesicular mass identified. No significant hepatic, splenic, or right adrenal lesion. Cannot exclude a 5 mm nodule along the dorsal aspect of the left adrenal. Pancreas not well-visualized due to adjacent nonopacified bowel loops. No evidence of small bowel obstruction, significant free fluid, aortoiliac aneurysm, or lymphadenopathy. There is a 5 mm right basilar pulmonary nodule contiguous with the hemidiaphragm. Visualized lung bases are otherwise clear. No traumatic or destructive skeletal lesions noted. Procedure Note Mack Mendoza MD - 07/25/2021 COMPARISON: None TECHNIQUE: Water is used as an oral contrast agent. Precontrast viewsare obtained from the kidneys through the inferior pubic rami.Intravenous contrast is then administered and scanning obtained at ninetyseconds from the dome of the liver to the inferior pubic rami. Delayedscanning is then obtained from above the kidneys through the inferiorpubic rami. Multiplanar reformatted images obtained. Automated exposurecontrol utilized. FINDINGS: No urinary calculi, hydronephrosis, or perinephric stranding present.There is a 2 mm hypodensity in the left upper renal pole which is toosmall to accurately measure but suspected represent a cyst. No additionalcyst or mass noted. No uroendothelial irregularities demonstrated. Bladderis relatively collapsed without intravesicular mass identified. No significant hepatic, splenic, or right adrenal lesion. Cannot exclude a5 mm nodule along the dorsal aspect of the left adrenal. Pancreas notwell-visualized due to adjacent nonopacified bowel loops. No evidence ofsmall bowel obstruction, significant free fluid, aortoiliac aneurysm, orlymphadenopathy. There is a 5 mm right basilar pulmonary nodule contiguous with thehemidiaphragm. Visualized lung bases are otherwise clear. No traumatic ordestructive skeletal lesions noted. IMPRESSION: Tiny hypodensity in the left kidney suspected to represent a cyst. Noother specific etiology of hematuria identified. Small right basilar pulmonary nodule, possibly incidental andpostinflammatory. Dedicated chest CT could be considered for exclusion ofadditional nodules, depending upon the clinical scenario. Equivocal smallleft adrenal nodule which could be confirmed on subsequent chest CT, ifobtained. TOTAL CTDIvol: mGy POS - [id number] Louis Gonzalez MD IMG CT ABD/PELVIS Final Result documented in this encounter Visit Diagnoses Diagnosis Asymptomatic microscopic hematuria- Primary Asymptomatic microscopic hematuria documented in this encounter Care Teams Court Attendant Relationship Specialty Start Date End Date Laura Cortez MD [facility] [place] [address] PCP - General Internal Medicine 12/12/19 documented as of this encounter Additional Source Comments The information contained in this document represents components of the legal health record. It is not the complete legal health record.[facility]
--- OUTSIDE RECORDS SUMMARY | 2025-03-07 17:47 | XMS_ITS | Encounter Summary ---
Author Organization [facility] Address [address] [place] [address] Phone Care Team Providers Care Animal Pathologist Name Role Phone Laura Cortez MD Primary Care Provider [phone] Encounter Details Date Type Department Care Team (Late st Contact Info) Description 07/05/2021 Procedure [facility], Ct Scan - [address] [address] Social History Tobacco Use Types Packs/Day Years [...] documented as of this encounter Visit Diagnoses Not on filedocumented in this encounter Care Teams Animal Pathologist Relationship Specialty Start Date End Date Laura Cortez MD [address] [facility] [place] [address] PCP - General Internal Medicine 12/12/19 documented as of this encounter Additional Source Comments The information contained in this document represents components of the legal health record. It is not the complete legal health record.[facility]
--- OUTSIDE RECORDS SUMMARY | 2025-03-07 17:47 | XMS_ITS | Encounter Summary ---
Author Organization [facility] Address [address] [facility] [address] [place] [address] Phone Care Team Providers Care Change Management Coordinator Name Role Phone Laura Cortez MD Primary Care Provider [phone] Encounter Details Date Type Department Care Team (Late st Contact Info) Description 09/23/2021 Transcribe Orders Virtual Department [address] [place] [address] Laura Cortez MD [address] [place] [address] Solitary pulmonary nodule (Primary Dx); Other specified [...] gland documented in this encounter Care Teams Change Management Coordinator Relationship Specialty Start Date End Date Laura Cortez MD [address] [place] [address] PCP - General Internal Medicine 12/12/19 documented as of this encounter Additional Source Comments The information contained in this document represents components of the legal health record. It is not the complete legal health record.[facility]
== END 2025-03-07 15:40 | disposition home or self-care (01) ==
LOC: HO.RHES 14:54
PROVIDERS: PCP Internal Medicine; Visit Provider Student in an Organized Health Care Education/Training Program
DX: M05.79 Rheumatoid arthritis with rheumatoid factor of multiple sites without organ or systems involvement (principal); M81.0 Age-related osteoporosis without current pathological fracture; Z79.899 Other long term (current) drug therapy
CPT/HCPCS: 99214

== ENCOUNTER → 2025-03-07 14:53 | Outpatient (BNVA) | payer OTHER, SELFPAY | PROVIDERS: PCP Internal Medicine; Visit Provider Student in an Organized Health Care Education/Training Program | DX: M05.79 Rheumatoid arthritis with rheumatoid factor of multiple sites without organ or systems involvement (principal); M81.0 Age-related osteoporosis without current pathological fracture; M79.7 Fibromyalgia; Z79.899 Other long term (current) drug therapy | CPT/HCPCS: 99212 ==